=== PATIENT | female | born 1935 | race Caucasian/White ===

== ENCOUNTER → 2016-06-27 | Outpatient (CLI) | payer OTHER ==
[~2016-06-27] MED LIST: ACET-1047 PO; ALL300 PO; ALLO300T2 PO; AMLO-110 PO; AMLO2.5T PO; AMX500 PO; APR10 PO; ASPCH81 PO; ASPI1TAB48 PO; ATEN50TA8 PO; BUME1TAB PO; CALC-585 PO; CALCTAB7 PO; CARV12.5 PO; CARV25TA PO; CHOL1000 PO; CLON0.1D5 TD; CLON0.2D4 TOP; CLOP1TAB15 PO; ENOX30IN SQ; FERR324T PO; FERR325T18 PO; HPRIS5M SQ; HYDR-5688 PO; INSDGI SC; INSDGIPEN SC; LDDP5 TD; LEVO50TA PO; LEVO50TA6 PO; LOSA1TAB38 PO; LPT/40 PO; LPT10 PO; LSX/40 PO; LSX20 PO; LVQ500 PO; MCRK20 PO; MULT-506 PO; NVLGI SC; NVLGI/PEN SQ; PRLSR20 PO; SACC250C3 PO; VNCS125 PO
[2016-06-27 18:12] LABS: BASO % 0.6 %; BASO ABS # 0.06 K/uL (0-0.2); COMPLETE YES; EOS % 3.9 %; HEMATOCRIT 32.5 % (37-47); IG% 0.4 %; LYMPH ABS # 2.44 K/uL (1.2-3.4); MEAN CELL VOLUME 93.4 fL (80-100); MEAN CORPUSCULAR HEMOGLOBIN 30.2 pg (25-34); MEAN CORPUSCULAR HGB CONC 32.3 g/dl (32-36); MEAN PLATELET VOLUME 9.3 fL (7.4-10.4); MONO % 6.6 %; NEUT % 64.5 %; PLATELET COUNT 328 K/uL (130-400); RED BLOOD COUNT 3.48 M/uL (4.2-5.4); WHITE BLOOD COUNT 10.18 K/uL (4.8-10.8)
[2016-06-27 18:23] LABS: THYROID STIMULATING HORMONE 0.251 uIu/ml (0.300-4.500)
== END | disposition home or self-care (01) ==
LOC: C.LABMFLN 11:37
PROVIDERS: ATTEND Family Medicine
DX: D64.9 Anemia, unspecified (principal); E03.9 Hypothyroidism, unspecified; R53.83 Other fatigue

== ENCOUNTER → 2016-10-20 | Outpatient (CLI) | payer OTHER ==
[2016-10-20 18:30] LABS: BASO % 0.5 %; BASO ABS # 0.04 K/uL (0-0.2); COMPLETE YES; EOS % 6.9 %; IG% 0.3 %; LYMPH % 22.5 %; LYMPH ABS # 1.96 K/uL (1.2-3.4); MEAN CELL VOLUME 94.4 fL (80-100); MEAN CORPUSCULAR HEMOGLOBIN 30.1 pg (25-34); MEAN CORPUSCULAR HGB CONC 31.9 g/dl (32-36); MEAN PLATELET VOLUME 9.3 fL (7.4-10.4); MONO % 4.8 %; PLATELET COUNT 340 K/uL (130-400); RED BLOOD COUNT 3.39 M/uL (4.2-5.4)
[2016-10-20 18:46] LABS: BLOOD UREA NITROGEN 64 mg/dl (7-18); BUN/CREATININE RATIO 24.6 (10-20); CALCIUM 8.8 mg/dl (8.5-10.1); CARBON DIOXIDE 24 mmol/L (21-32); CHLORIDE 108 mmol/L (98-107); CHOLESTEROL 179 mg/dl (0-200); GLUCOSE 165 mg/dl (70-99); POTASSIUM 4.2 mmol/L (3.5-5.1); SODIUM 141 mmol/L (136-145); TRIGLYCERIDES 316 mg/dl (0-150); VERY LOW DENSITY LIPOPROT CALC 63 mg/dl
[2016-10-20 18:49] LABS: ALB/GLOB RATIO 0.7 (0.9-2); ALKALINE PHOSPHATASE 143 U/L (45-117); ALT/SGPT 19 U/L (12-78); AST/SGOT 16 U/L (15-37); CHOLESTEROL/HDL RATIO 4.1; HDL CHOLESTEROL 44 mg/dl; LDL CHOLESTEROL CALCULATED 72 mg/dl
[2016-10-21 06:19] LABS: ESTIMATED AVERAGE GLUCOSE 183 mg/dl; HA1C FLAG Normal (Normal)
== END | disposition home or self-care (01) ==
LOC: C.LABMFLN 09:20
PROVIDERS: ATTEND Family Medicine
DX: E11.22 Type 2 diabetes mellitus with diabetic chronic kidney disease (principal); I12.9 Hypertensive chronic kidney disease with stage 1 through stage 4 chronic kidney disease, or unspecified chronic kidney disease; D64.9 Anemia, unspecified; E55.9 Vitamin D deficiency, unspecified; E11.621 Type 2 diabetes mellitus with foot ulcer; E53.8 Deficiency of other specified B group vitamins; N18.9 Chronic kidney disease, unspecified

== ENCOUNTER 2016-11-27 02:12 | Inpatient (IN) | payer OTHER ==
[2016-11-27] VITALS (7 sets, daily range): BP systolic 148–171; BP diastolic 57–90; PULSE 57–64; TEMP 36.6–37.1; O2SAT 90–95; BMI 31.6
[~2016-11-27] VITALS: Ht 152.4 cm; Wt 76.9 kg
[~2016-11-27 02:12] MED LIST changes: -ACET-1047 PO; -ALLO300T2 PO; -AMLO-110 PO; -AMX500 PO; -APR10 PO; -ASPI1TAB48 PO; -BUME1TAB PO; -CALC-585 PO; -CARV12.5 PO; -CARV25TA PO; -CHOL1000 PO; -CLON0.1D5 TD; -CLON0.2D4 TOP; -CLOP1TAB15 PO; -FERR325T18 PO; -HPRIS5M SQ; -HYDR-5688 PO; -INSDGIPEN SC; -LDDP5 TD; -LEVO50TA6 PO; -LPT10 PO; -LSX/40 PO; -LVQ500 PO; -NVLGI/PEN SQ; -SACC250C3 PO; -VNCS125 PO
[2016-11-27] MEDS ORDERED: MoRPHine SULFATE 4 MG/ML 1 ML CARP\\VIAL IV STA (02:51)
[2016-11-27] MEDS ORDERED: ONDANSETRON INJ 2 MG/ML 2 ML VIAL IV STA (02:51)
[2016-11-27 03:20] LABS: BASO % 0.1 %; BASO ABS # 0.02 K/uL (0-0.2); COMPLETE YES; EOS % 0.3 %; HEMATOCRIT 33.4 % (37-47); IG% 0.5 %; LYMPH % 6.4 %; LYMPH ABS # 1.17 K/uL (1.2-3.4); MEAN CELL VOLUME 95.4 fL (80-100); MEAN CORPUSCULAR HEMOGLOBIN 30.6 pg (25-34); MEAN PLATELET VOLUME 9.2 fL (7.4-10.4); MONO % 3.3 %; NEUT % 89.4 %; PLATELET COUNT 256 K/uL (130-400); WHITE BLOOD COUNT 18.26 K/uL (4.8-10.8)
[2016-11-27 03:45] LABS: ALB/GLOB RATIO 0.8 (0.9-2); ALKALINE PHOSPHATASE 150 U/L (45-117); ALT/SGPT 18 U/L (12-78); AST/SGOT 13 U/L (15-37); BLOOD UREA NITROGEN 60 mg/dl (7-18); BUN/CREATININE RATIO 19.4 (10-20); CALCIUM 9.2 mg/dl (8.5-10.1); CARBON DIOXIDE 31 mmol/L (21-32); CHLORIDE 96 mmol/L (98-107); CKMB/CK RATIO 1.4 (0-3.0); GLUCOSE 376 mg/dl (70-99); POTASSIUM 4.1 mmol/L (3.5-5.1); SODIUM 137 mmol/L (136-145)
[2016-11-27 04:06] LABS: BETA-HYDROXYBUTYRATE 1.15 mg/dL (0.2-2.81)
--- NOTE | 2016-11-27 04:12 | EMERGENCY ROOM VISIT NOTE ---
History Report prepared by Clara: Gillian Sullivan Under the Supervision of: Dr. Samanta Alarcon D.O. First contact with patient: 02:39 Chief Complaint: FALL Stated Complaint: FALL History of Present Illness The patient is a 81 year old female who presents to the Emergency Room with complaints of left knee pain secondary to fall occurring about 4 hours ago. While walking to answer the door, she tripped over an object and landed on her left side. Her family assisted her to the couch. She was unable to ambulate as normal after the fall due to the severity of her pain. The patient denies hitting her head or loss of consciousness. The patient also complains of some left shoulder pain and left hip pain. She has worsening pain with movement. She had a vomiting episode 4 days ago. The patient denies abdominal pain, or any other complaints. She has chronic neck pain and denies any changes. She has a history of left shoulder reconstruction surgery after a fall, and left knee replacement. Source of History: patient Onset: about 4 hours ago Position: knee (left) Timing: other (persistent) Modifying Factors (Worsening): movement Associated Symptoms: No LOC, No abdominal pain Review of Systems See HPI for pertinent positives & negatives. A total of 10 systems reviewed and were otherwise negative. Past Medical & Surgical Medical Problems: (1) Anxiety (2) Diabetes (3) High cholesterol (4) Hypertension (5) Kidney stones (6) Left Femur fracture (7) Left Femur Fracture (8) Osteopenia (9) Renal insufficiency Surgical Problems: (1) History of cholecystectomy (2) History of lobectomy of lung (3) History of total left knee replacement (4) History of total right knee replacement (5) Hx of appendectomy Family History Patient reports no known family medical history. Social History Smoking Status: Never Smoker Marital Status: Housing Status: lives with family Occupation Status: retired Current/Historical Medications Scheduled Allopurinol (Zyloprim), 300 MG PO DAILY Amlodipine (Norvasc), 5 MG PO DAILY Aspirin (Aspirin Low Dose), 1 TAB PO DAILY Atorvastatin (Atorvastatin Calcium), 10 MG PO QPM Calcium Carbonate-Cholecalcife (Calcium 600 with Vitamin 600-400 mg-Unit), 1 TAB PO DAILY Carvedilol (Coreg), 12.5 MG PO BIDM Carvedilol (Coreg), 25 MG PO BID Cholecalciferol (Vitamin D3), 2,000 UNIT PO BID Clonidine Hcl (Catapres-Tts), 1 PATCH TD WK Clopidogrel (Plavix), 75 MG PO DAILY Ferrous Gluconate (Ferrous Gluconate), 324 MG PO BID Furosemide (Lasix), 40 MG PO DAILY Insulin Aspart (Novolog Flexpen), 6 UNITS SQ WM Insulin Glargine (Lantus Solostar), 16 UNITS SC QPM Levothyroxine Sodium (Levothyroxine Sodium), 1 TAB PO DAILY Multivitamin (Multivitamin), 1 TAB PO DAILY Allergies Coded Allergies: Quinolones (Verified Allergy, Unknown, CIPRO=RASH, 07/31/09) Atorvastatin (Verified Adverse Reaction, Intermediate, MUSCLE ACHES, ) MUSCLE ACHES Ezetimibe (Verified Adverse Reaction, Intermediate, MUSCLE ACHES, 07/31/09) MUSCLE ACHES Simvastatin (Verified Adverse Reaction, Intermediate, MUSCLES ACHES, ) MUSCLE ACHES Physical Exam Vital Signs Date Time Temp Pulse Resp B/P (MAP) Pulse Ox O2 Delivery O2 Flow Rate FiO2 11/27/16 05:06 63 11/27/16 04:23 72 16 143/79 98 Room Air 11/27/16 02:22 36.6 58 18 163/61 96 Room Air Physical Exam HEENT: Head - normocephalic and atraumatic. Pupils are equal, round, and reactive to light. Extraocular eye muscles are intact and sclera are anicteric. Nose - moist nasal mucosa without evidence of trauma or discharge. Mouth - moist buccal mucosa with no trauma to the teeth or signs of malocclusion. Neck: The neck is supple and there is no pain to palpation over the posterior cervical spine and no obvious step-offs or deformities. There is no JVD or tracheal deviation. Chest: There are no signs of deformities, contusions or abrasions to the chest wall. There is no obvious crepitus or paradoxical chest rise. Heart: Regular, rate, and rhythm. There is a normal S1 and S2 with no murmurs, clicks, or gallops appreciated. Lungs: Clear to auscultation bilaterally with no wheezes, rales, or rhonchi. Abdomen: Soft, completely nontender, nondistended, with good bowel sounds. There is no sign of trauma such as contusions, abrasions or penetrations. There are no palpable pulsatile masses or hepatosplenomegaly. There is no guarding, rigidity, or rebound noted. Pelvis: Stable to rock and compression. Extremities: No obvious trauma, contusions, or edema. There are easily palpable peripheral pulses. Minimal pain to palpation over the left lateral hip , moderate pain over the left lateral knee at the proximal left fibula. The patient has a history of previously indicated toes on this foot. She has a deep wound over the base of the first metatarsal on the plantar surface. There is no surrounding erythema or edema. Neuro: The patient is awake and alert and easily able to follow commands. Muscle strength is 5 out of 5 in all 4 extremities. Otherwise, neuro exam is unremarkable. Back: The entire thoracic, lumbar, and sacral spine were palpated. There are no obvious step-offs or deformities noted. There are no obvious signs of trauma such as contusions abrasions penetrations noted to the back. Medical Decision & Procedures ER Provider Diagnostic Interpretation: X-ray results as stated below per interpretation by me: HIP X-RAY No obvious fracture, hardware in place. KNEE X-RAY No obvious fracture, hardware in place. PORTABLE CHEST X-RAY No obvious pulmonary consolidation, no infiltrates, hardware in the left humerus appears intact. Laboratory Results 11/27/16 03:10 Red Blood Count 3.50, Mean Corpuscular Volume 95.4, Mean Corpuscular Hemoglobin 30.6, Mean Corpuscular Hemoglobin Concent 32.0, Mean Platelet Volume 9.2, Neutrophils (%) (Auto) 89.4, Lymphocytes (%) (Auto) 6.4, Monocytes (%) (Auto) 3.3, Eosinophils (%) (Auto) 0.3, Basophils (%) (Auto) 0.1, Neutrophils # (Auto) 16.31, Lymphocytes # (Auto) 1.17, Monocytes # (Auto) 0.61, Eosinophils # (Auto) 0.06, Basophils # (Auto) 0.02 11/27/16 03:10 Test 11/27/16 03:10 11/27/16 05:20 White Blood Count 18.26 K/uL (4.8-10.8) Red Blood Count 3.50 M/uL (4.2-5.4) Hemoglobin 10.7 g/dL (12.0-16.0) Hematocrit 33.4 % (37-47) Mean Corpuscular Volume 95.4 fL (80-100) Mean Corpuscular Hemoglobin 30.6 pg (25-34) Mean Corpuscular Hemoglobin Concent 32.0 g/dl (32-36) Platelet Count 256 K/uL (130-400) Mean Platelet Volume 9.2 fL (7.4-10.4) Neutrophils (%) (Auto) 89.4 % Lymphocytes (%) (Auto) 6.4 % Monocytes (%) (Auto) 3.3 % Eosinophils (%) (Auto) 0.3 % Basophils (%) (Auto) 0.1 % Neutrophils # (Auto) 16.31 K/uL (1.4-6.5) Lymphocytes # (Auto) 1.17 K/uL (1.2-3.4) Monocytes # (Auto) 0.61 K/uL (0.11-0.59) Eosinophils # (Auto) 0.06 K/uL (0-0.5) Basophils # (Auto) 0.02 K/uL (0-0.2) RDW Standard Deviation 48.9 fL (36.4-46.3) RDW Coefficient of Variation 14.2 % (11.5-14.5) Immature Granulocyte % (Auto) 0.5 % Immature Granulocyte # (Auto) 0.09 K/uL (0.00-0.02) Anion Gap 10.0 mmol/L (3-11) Est Creatinine Clear Calc Drug Dose 12.9 ml/min Estimated GFR () 15.7 Estimated GFR (Non- 13.5 BUN/Creatinine Ratio 19.4 (10-20) Calcium Level 9.2 mg/dl (8.5-10.1) Total Bilirubin 0.4 mg/dl (0.2-1) Aspartate Amino Transf (AST/SGOT) 13 U/L (15-37) Alanine Aminotransferase (ALT/SGPT) 18 U/L (12-78) Alkaline Phosphatase 150 U/L (45-117) Total Creatine Kinase 72 U/L (26-192) Creatine Kinase MB 1.0 ng/ml (0.5-3.6) Creatine Kinase MB Ratio 1.4 (0-3.0) Troponin I < 0.015 ng/ml (0-0.045) Total Protein 8.1 gm/dl (6.4-8.2) Albumin 3.6 gm/dl (3.4-5.0) Globulin 4.5 gm/dl (2.5-4.0) Albumin/Globulin Ratio 0.8 (0.9-2) Beta-Hydroxybutyric Acid 1.15 mg/dL (0.2-2.81) Urine Color YELLOW Urine Appearance CLEAR (CLEAR) Urine pH 5.0 (4.5-7.5) Urine Specific [place] 1.017 (1.000-1.030) Urine Protein 2+ (NEG) Urine Glucose (UA) 3+ (NEG) Urine Ketones NEG (NEG) Urine Occult Blood TRACE (NEG) Urine Nitrite NEG (NEG) Urine Bilirubin NEG (NEG) Urine Urobilinogen NEG (NEG) Urine Leukocyte Esterase NEG (NEG) Urine WBC (Auto) 1-5 /hpf (0-5) Urine RBC (Auto) 0-4 /hpf (0-4) Urine Hyaline Casts (Auto) 1-5 /lpf (0-5) Urine Epithelial Cells (Auto) >30 /lpf (0-5) Urine Bacteria (Auto) NEG (NEG) Laboratory results per my review. Medications Administered Medications (Trade) Dose Ordered Sig/Sandra Route Start Time Stop Time Status Last Admin Dose Admin Morphine Sulfate (MoRPHine SULFATE INJ) 4 mg NOW STAT IV 11/27/16 02:51 11/27/16 02:53 DC 11/27/16 03:17 4 MG Ondansetron HCl (Zofran Inj) 4 mg NOW STAT IV 11/27/16 02:51 11/27/16 02:53 DC 11/27/16 03:17 4 MG Procedure Zofran Inj 4 mg IV, Morphine Sulfate 4 mg IV ED Course 0239: Past medical records reviewed. The patient was evaluated in room B04B. A complete history and physical exam was performed. An IV lock was initiated and labs are drawn as above. I attest that I have personally reviewed the patient's current medication list. Patient was found to have an elevated blood pressure and was referred to their primary doctor for recheck and further treatment once she is discharged. 0251: Zofran Inj 4 mg IV, Morphine Sulfate 4 mg IV was given for the pain in the left knee. 0445: Upon reevaluation, I discussed findings and results with the patient and her family. They verbalized agreement of the treatment plan. The patient will be evaluated for further management and care. The patient was noted to have significant leukocytosis and additional laboratory tests were ordered-blood cultures. Also ordered a catheterized urine specimen and a chest x-ray to rule out sources of infection. 0455: I discussed the patient's case with Dr. Wallace, from [facility] Service. Medical Decision The patient presents to the Emergency Room with complaints of left knee pain secondary to fall. Differential diagnosis includes but is not limited to hip fracture, knee fracture, displaced hardware, sepsis, osteomyelitis, UTI, hypoglycemia, or hyperglycemia. Her labs showed white count of 18.2 with 89% neutrophils, anemic with hemoglobin of 10.7 which is baseline for her, creatinine of 3.1 which is elevated from her baseline of 2.6, BUN of 60, glucose 376, LFTs are normal, cardiac enzymes are negative. Urinalysis showed trace blood and greater than 30 epithelial cells. Patient presents with a mechanical fall and complains of left hip pain and left knee pain. No obvious fracture was identified. The patient's pain was well controlled with the IV pain medications that she received. The patient was noted to have a significant leukocytosis and hyperglycemia. The patient had not taken her insulin tonight's because of the fall. The source of infection was not yet known. Her vital signs are stable. There is no obvious finding on chest x-ray. Urinalysis was contaminated and sent for culture. The wound on the left foot could certainly be a source but did not appear to be acutely infected. The patient has chronic renal insufficiency with a creatinine at the level of 2.6. Tonight, the creatinine was greater than 3. I discussed the case with the [facility] and they will evaluate for further management. Consults Time Called: 045 Consulting Physician: Dr. Wallace, from [facility] Service Returned Call: [phone] I discussed the patient's case with Dr. Wallace, from [facility] Service. Impression Primary Impression: Renal failure Additional Impressions: Fall Hyperglycemia Scribe Attestation The scribe's documentation has been prepared under my direction and personally reviewed by me in its entirety. I confirm that the note above accurately reflects all work, treatment, procedures, and medical decision making performed by me. Departure Information Dispostion Being Evaluated By Hospitalist Referrals Doe Mercedes M.D. (PCP) Patient Instructions [facility] Problem Qualifiers
[2016-11-27 05:33] LABS: MANUAL MICROSCOPIC REQUIRED? NO; REVIEW REQ? NO; URINE APPEARANCE CLEAR (CLEAR); URINE BILIRUBIN NEG (NEG); URINE COLOR YELLOW; URINE EPITHELIAL CELL AUTO >30 /lpf (0-5); URINE NITRITE NEG (NEG); URINE SPECIFIC GRAVITY 1.017 (1.000-1.030); UROBILINOGEN NEG (NEG)
[2016-11-27] MEDS ORDERED: CLOP1TAB15 PO (05:44)
[2016-11-27] MEDS ORDERED: AMLO-110 PO (05:45)
[2016-11-27] MEDS ORDERED: ALLO300T2 PO (05:45)
[2016-11-27] MEDS ORDERED: ASPI1TAB48 PO (05:46)
[2016-11-27] MEDS ORDERED: LPT10 PO (05:46)
[2016-11-27] MEDS ORDERED: CALC-585 PO (05:47)
[2016-11-27] MEDS ORDERED: CARV25TA PO (05:48)
[2016-11-27] MEDS ORDERED: CARV12.5 PO (05:48)
[2016-11-27] MEDS ORDERED: CLON0.1D5 TD (05:49)
[2016-11-27] MEDS ORDERED: FERR325T18 PO (05:50)
[2016-11-27] MEDS ORDERED: LSX/40 PO (05:50)
[2016-11-27] MEDS ORDERED: LEVO50TA6 PO (05:51)
[2016-11-27] MEDS ORDERED: INSDGIPEN SC (05:51)
[2016-11-27] MEDS ORDERED: MULT-506 PO (05:51)
[2016-11-27] MEDS ORDERED: CHOL1000 PO (05:52)
[2016-11-27] MEDS ORDERED: NVLGI/PEN SQ (05:52)
--- NOTE | 2016-11-27 06:20 | History and Physical ---
History & Physical Date & Time of Service: Nov 27, 2016 at 06:19 Chief Complaint: FALL Primary Care Physician: Doe Mercedes M.D. History of Present Illness Source: patient, family The patient is an 81-year-old female who presents to the emergency department with left knee pain after a fall that occurred about 4 hours prior to arrival. Her daughter is present and helps to complete the history of present illness and ROS. The patient reportedly became startled when she was walking toward the door as her son is coming to visit, she tripped over an object on the floor and landed on her left side. Her daughter reports that both for them to lift her up and move her to the couch. It is unclear whether this was because of severe pain or because the patient was afraid she had broken her leg. The patient did not have any predisposing issues as far as lightheadedness palpitations. She denies any loss of consciousness and she does not have any head trauma. She does also reports some left shoulder and left hip pain that is worse with movement. Past Medical/Surgical History Medical Problems: (1) Anxiety Status: Resolved (2) Diabetes Status: Chronic (3) High cholesterol Status: Chronic (4) Hypertension Status: Chronic (5) Kidney stones Status: Resolved (6) Left Femur fracture Status: Resolved (7) Left Femur Fracture Status: Resolved (8) Osteopenia Status: Chronic (9) Renal insufficiency Status: Chronic Surgical Problems: (1) History of cholecystectomy Status: Resolved (2) History of lobectomy of lung Status: Resolved (3) History of total left knee replacement Status: Resolved (4) History of total right knee replacement Status: Resolved (5) Hx of appendectomy Status: Resolved Family History Patient reports no known family medical history. Social History Smoking Status: Never Smoker Smokeless Tobacco Use: No Alcohol Use: none Drug Use: none Marital Status: Housing status: lives alone Occupational Status: retired Immunizations History of Influenza Vaccine: Yes Influenza Vaccine Date: Mar 26, 2013 History of Tetanus Vaccine?: Unknown History of Pneumococcal: Yes Pneumococcal Date: Apr 15, 2012 History of Hepatitis B Vaccine: Unknown Multi-Drug Resistant Organisms History of MDRO: No Allergies Coded Allergies: Quinolones (Verified Allergy, Unknown, CIPRO=RASH, 07/31/09) Atorvastatin (Verified Adverse Reaction, Intermediate, MUSCLE ACHES, ) MUSCLE ACHES Ezetimibe (Verified Adverse Reaction, Intermediate, MUSCLE ACHES, 07/31/09) MUSCLE ACHES Simvastatin (Verified Adverse Reaction, Intermediate, MUSCLES ACHES, ) MUSCLE ACHES Home Medications Scheduled Allopurinol (Zyloprim), 300 MG PO DAILY Amlodipine (Norvasc), 5 MG PO DAILY Aspirin (Aspirin Low Dose), 1 TAB PO DAILY Atorvastatin (Atorvastatin Calcium), 10 MG PO QPM Calcium Carbonate-Cholecalcife (Calcium 600 with Vitamin 600-400 mg-Unit), 1 TAB PO DAILY Carvedilol (Coreg), 12.5 MG PO BIDM Carvedilol (Coreg), 25 MG PO BID Cholecalciferol (Vitamin D3), 2,000 UNIT PO BID Clonidine Hcl (Catapres-Tts), 1 PATCH TD WK Clopidogrel (Plavix), 75 MG PO DAILY Ferrous Gluconate (Ferrous Gluconate), 324 MG PO BID Furosemide (Lasix), 40 MG PO DAILY Insulin Aspart (Novolog Flexpen), 6 UNITS SQ WM Insulin Glargine (Lantus Solostar), 16 UNITS SC QPM Levothyroxine Sodium (Levothyroxine Sodium), 1 TAB PO DAILY Multivitamin (Multivitamin), 1 TAB PO DAILY Review of Systems The patient denies chest pain, palpitations, shortness of breath, cough, vision change, hearing change, sore throat, fevers, chills, sweats, weight change, fatigue, nausea, vomiting, abdominal pain, pelvic pain, blood in urine or stool , dysuria, urinary frequency or urgency, lightheadedness, dizziness, headache, memory loss, rash, abnormal bruising or bleeding, back or neck pain, night sweats, or allergy symptoms. The review of systems is otherwise negative other than for that already noted above, and at least 10 systems have been reviewed. Physical Exam Vital Signs Date Time Temp Pulse Resp B/P (MAP) Pulse Ox O2 Delivery O2 Flow Rate FiO2 11/27/16 05:06 63 11/27/16 04:23 72 16 143/79 98 Room Air 11/27/16 02:22 36.6 58 18 163/61 96 Room Air The patient is awake, well-developed and adequately nourished, alert and oriented 3, normocephalic and atraumatic, lying in bed and in no acute distress. She is hard of hearing. HEENT--PERRL, EOMI, mucous membranes and oropharynx dry. Neck--supple, no JVD or bruits, thyroid normal, trachea midline, no adenopathy. Heart--normal S1 and S2, no extra beats, no murmurs, rubs or gallops. Lungs--clear bilaterally but diminished throughout, no respiratory distress, no accessory muscle use. Abdomen--normal bowel sounds and soft, nontender and nondistended, no hernias or masses, no organomegaly. Extremities--no cyanosis, clubbing or edema. There are good distal pulses b/l. Dermatologic--normal skin turgor, normal color, warm and dry, no abnormal lymph nodes, no rash. Neurologic--cranial nerves II through XII grossly intact. Rheumatologic--reducible pain over left knee with light touch. Psychiatric--normal affect. Diagnostics Laboratory Results Results Past 24 Hours Test 11/27/16 03:10 11/27/16 05:20 Range/Units White Blood Count 18.26 4.8-10.8 K/uL Red Blood Count 3.50 4.2-5.4 M/uL Hemoglobin 10.7 12.0-16.0 g/dL Hematocrit 33.4 37-47 % Mean Corpuscular Volume 95.4 80-100 fL Mean Corpuscular Hemoglobin 30.6 25-34 pg Mean Corpuscular Hemoglobin Concent 32.0 32-36 g/dl Platelet Count 256 130-400 K/uL Mean Platelet Volume 9.2 7.4-10.4 fL Neutrophils (%) (Auto) 89.4 % Lymphocytes (%) (Auto) 6.4 % Monocytes (%) (Auto) 3.3 % Eosinophils (%) (Auto) 0.3 % Basophils (%) (Auto) 0.1 % Neutrophils # (Auto) 16.31 1.4-6.5 K/uL Lymphocytes # (Auto) 1.17 1.2-3.4 K/uL Monocytes # (Auto) 0.61 0.11-0.59 K/uL Eosinophils # (Auto) 0.06 0-0.5 K/uL Basophils # (Auto) 0.02 0-0.2 K/uL RDW Standard Deviation 48.9 36.4-46.3 fL RDW Coefficient of Variation 14.2 11.5-14.5 % Immature Granulocyte % (Auto) 0.5 % Immature Granulocyte # (Auto) 0.09 0.00-0.02 K/uL Sodium Level 137 136-145 mmol/L Potassium Level 4.1 3.5-5.1 mmol/L Chloride Level 96 98-107 mmol/L Carbon Dioxide Level 31 21-32 mmol/L Anion Gap 10.0 3-11 mmol/L Blood Urea Nitrogen 60 7-18 mg/dl Creatinine 3.10 0.60-1.20 mg/dl Est Creatinine Clear Calc Drug Dose 12.9 ml/min Estimated GFR () 15.7 Estimated GFR (Non- 13.5 BUN/Creatinine Ratio 19.4 10-20 Random Glucose 376 70-99 mg/dl Calcium Level 9.2 8.5-10.1 mg/dl Total Bilirubin 0.4 0.2-1 mg/dl Aspartate Amino Transf (AST/SGOT) 13 15-37 U/L Alanine Aminotransferase (ALT/SGPT) 18 12-78 U/L Alkaline Phosphatase 150 45-117 U/L Total Creatine Kinase 72 26-192 U/L Creatine Kinase MB 1.0 0.5-3.6 ng/ml Creatine Kinase MB Ratio 1.4 0-3.0 Troponin I < 0.015 0-0.045 ng/ml Total Protein 8.1 6.4-8.2 gm/dl Albumin 3.6 3.4-5.0 gm/dl Globulin 4.5 2.5-4.0 gm/dl Albumin/Globulin Ratio 0.8 0.9-2 Beta-Hydroxybutyric Acid 1.15 0.2-2.81 mg/dL Urine Color YELLOW Urine Appearance CLEAR CLEAR Urine pH 5.0 4.5-7.5 Urine Specific [place] 1.017 1.000-1.030 Urine Protein 2+ NEG Urine Glucose (UA) 3+ NEG Urine Ketones NEG NEG Urine Occult Blood TRACE NEG Urine Nitrite NEG NEG Urine Bilirubin NEG NEG Urine Urobilinogen NEG NEG Urine Leukocyte Esterase NEG NEG Urine WBC (Auto) 1-5 0-5 /hpf Urine RBC (Auto) 0-4 0-4 /hpf Urine Hyaline Casts (Auto) 1-5 0-5 /lpf Urine Epithelial Cells (Auto) >30 0-5 /lpf Urine Bacteria (Auto) NEG NEG Microbiology Results 6/4/17 Blood Culture, Received Pending 11/27/16 Blood Culture, Received Pending Impression Assessment and Plan Left knee pain, with normal x-ray, status post mechanical fall--patient has also had significant general debilitation. We'll consult PT/OT/social group worker. Patient would likely benefit from inpatient rehabilitation stay. Diabetes mellitus/hyperglycemia--blood sugar is elevated at 376 due to not having taken her Lantus 16 units at bedtime last evening. She'll be given that dose this morning at 6:30, and should be able to resume her usual dose scheduled this evening. She will be placed on Accu-Cheks before meals and at bedtime with NovoLog coverage per scale. Hypertension/renal insufficiency--continue amlodipine 2.5 mg by mouth daily, atenolol 12.5 mg by mouth daily, losartan 100 mg by mouth daily and aspirin 81 mg by mouth daily. Hold furosemide 40 mg by mouth daily due to relative dehydration. Place on normal saline at 100 mils per hour. Follow serial BMP and magnesium levels. Her daughter reports that her kidney function has been not optimal for a while, and has been told that she is close to needing dialysis. Hypercholesterolemia--continue atorvastatin 80 mg by mouth daily. Hypothyroidism--continue levothyroxine sodium 50 g by mouth daily. GERD--change omeprazole 20 mg by mouth daily to pantoprazole 40 mg by mouth daily. Gout--continue allopurinol 300 mg by mouth daily. Level of Care Med/Surg Advanced Directives Existing Advance Directive: No Existing Living Will: No Existing Power of Extractor Plant Operator: No Resuscitation Status FULL RESUSCITATION VTE Prophylaxis VTE Risk Assessment Done? Y/N: Yes Risk Level: Moderate Given or contraindicated: SCD's Social Service Consult >80 yr.& Lives Alone
[2016-11-27] MEDS ORDERED: GLUCAGON FOR INJ 1 MG VIAL SQ PRN (06:30)
[2016-11-27] MEDS ORDERED: GLUCOSE 40% GEL 15 GM TUBE PO PRN (06:30)
[2016-11-27] MEDS ORDERED: DEXTROSE 50% 50 ML SYR IV PRN (06:30)
[2016-11-27] MEDS ORDERED: ONDANSETRON INJ 2 MG/ML 2 ML VIAL IV PRN (06:30)
[2016-11-27] MEDS ORDERED: GLUCOSE 10 TABS/TUBE PO PRN (06:30)
[2016-11-27] MEDS ORDERED: INSULIN GLARGINE SOLOSTAR 100 UNITS/ML 3 ML PEN SC ONE (07:30)
--- NOTE | 2016-11-27 07:42 | DIAGNOSTIC IMAGING REPORT ---
LEFT KNEE 2 VIEWS CLINICAL HISTORY: Fall with left knee pain. FINDINGS: AP and crosstable lateral views of left knee are compared to study dated 07/13/2007. The skeletal structures are osteopenic. A left knee arthroplasty is in near-anatomic alignment. No periprosthetic lucency is identified. There is an oblique lucency seen in the distal femoral metaphysis on the oblique view. There is no clear cortical disruption. A nondistracted fracture is not excluded. An intramedullary nail is partially visualized in the distal femur. The proximal tibia and fibula appear maintained. There is been undersurface remodeling of the patella with chronic appearing posttraumatic deformity. A joint effusion is identified. Mild soft tissue swelling is present in the distal thigh and there is advanced atherosclerotic calcification of the popliteal artery. IMPRESSION: 1. There is an oblique lucency seen in the distal femoral metaphysis only on the oblique view. There is no clear cortical disruption, and a nondistracted oblique fracture is not excluded. Correlate for point tenderness at this site. Oblique views may be useful for further interrogation. 2. There is chronic appearing posttraumatic deformity of the patella. 3. Joint effusion and soft tissue swelling the distal thigh. 4. A left knee arthroplasty is in near-anatomic alignment. Electronically signed by: Doe Caceres M.D. 11/27/2016 7:41 AM Dictated Date/Time: 11/27/2016 7:37 AM
--- NOTE | 2016-11-27 07:45 | DIAGNOSTIC IMAGING REPORT ---
LEFT HIP 2 VIEWS CLINICAL HISTORY: Fall with left hip pain. FINDINGS: AP and frog-leg views of the left hip are correlated with pelvic radiograph dated 07/23/2013. The skeletal structures are osteopenic. There is no radiographic evidence of acute left hip fracture. There is chronic posttraumatic deformity in the left proximal femur with intertrochanteric and intramedullary nails in place. There are chronic appearing right pubic ring fractures which are new from the 2013 examination. 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 There is advanced atherosclerotic calcification of the femoral arteries. The overlying soft tissues are otherwise within normal limits. IMPRESSION: 1. No acute fracture is clearly identified in the left hip. 2. There is chronic posttraumatic deformity and postoperative change in the left proximal femur. 3. There are chronic appearing right pubic ring fractures which are new from the 07/23/2013 examination. Correlation the patient's medical history will be required. Electronically signed by: Doe Caceres M.D. 11/27/2016 7:44 AM Dictated Date/Time: 11/27/2016 7:41 AM
--- NOTE | 2016-11-27 07:49 | DIAGNOSTIC IMAGING REPORT ---
SINGLE VIEW CHEST CLINICAL HISTORY: Leukocytosis. FINDINGS: An AP, portable, upright chest radiograph is compared to study dated 01/15/2007. The examination is degraded by portable technique and patient rotation. The heart is mildly enlarged and there is atherosclerotic calcification of the thoracic aorta. The pulmonary vasculature is noncongested. Chronic interstitial thickening is similar to previous. No airspace consolidation, pleural effusion, or pneumothorax is seen. The skeletal structures are osteopenic. There are healed left-sided rib fractures. A left shoulder arthroplasty is in place. Advanced arthritic changes present in the right shoulder. Atherosclerotic calcification is noted in the carotid bulbs. A surgical clip is noted in the left lower neck. IMPRESSION: Mild cardiomegaly with no acute cardiopulmonary abnormality. Electronically signed by: Doe Caceres M.D. 11/27/2016 7:48 AM Dictated Date/Time: 11/27/2016 7:47 AM
[2016-11-27] MEDS: CHECK CLONIDINE PATCH PLACEMENT SCH ×2 (08:00→16:33)
[2016-11-27] MEDS: SODIUM CHLORIDE 0.9% 1000ML 1,000 ML IV SCH ×2 (09:08→17:35)
[2016-11-27] MEDS: FUROSEMIDE 40 MG TAB PO SCH (09:11)
[2016-11-27] MEDS: CLOPIDOGREL BISULFATE 75 MG TAB PO SCH (09:12)
[2016-11-27] MEDS: CARVEDILOL 12.5 MG TAB PO SCH ×2 (09:12→21:31)
[2016-11-27] MEDS: ALLOPURINOL 300 MG TAB PO SCH (09:13)
[2016-11-27] MEDS: FERROUS GLUCONATE 324 MG TAB PO SCH ×2 (09:13→21:33)
[2016-11-27] MEDS: ASPIRIN 81 MG ECTAB PO SCH (09:13)
[2016-11-27] MEDS: CALCIUM 600MG + VIT D 400 IU TAB PO SCH (09:13)
[2016-11-27] MEDS: AMLODIPINE BESYLATE 5 MG TAB PO SCH (09:14)
[2016-11-27] MEDS: CHOLECALCIFEROL 1000 INTER.UNIT TAB PO SCH ×2 (09:14→21:32)
[2016-11-27] MEDS: MULTIVITAMIN TAB PO SCH (09:14)
[2016-11-27] MEDS: LEVOTHYROXINE 50 MCG TAB PO SCH (09:15)
[2016-11-27] MEDS: INSULIN ASPART 100 UNITS/ML 3 ML PEN SC SCH ×4 (09:23→21:35)
[2016-11-27] MEDS ORDERED: NURSING VERBAL MED ORDER ONE (15:30)
--- NOTE | 2016-11-27 16:38 | Progress Note ---
Subjective Date of Service: Nov 27, 2016. Subjective pt has left sided body pain but was noted to have a stage 3 decubitus ulcer on left foot near 1st disatal metatarsal, but has also had previous toe amputations , no new fractures seen but multiple old fractures including pelvis and femur patient is in need of pain management and rehab referral Problem List Medical Problems: (1) Fall Status: Acute (2) Hyperglycemia Status: Acute (3) Renal failure Status: Acute Review of Systems Constitutional: + weakness, + fatigue, No fever, No chills Respiratory: No cough, No shortness of breath, No dyspnea on exertion Cardiac: + edema, No chest pain, No orthopnea, No PND Abdomen: No pain, No nausea, No vomiting, No diarrhea Skin: + problem reported (stage 3 decubutus on left foot not redened or infected at this time) Objective Vital Signs Date Time Temp Pulse Resp B/P (MAP) Pulse Ox O2 Delivery O2 Flow Rate FiO2 11/27/16 15:24 36.6 57 18 148/57 (87) 93 Room Air 11/27/16 11:21 95 Room Air 11/27/16 07:34 95 Room Air 11/27/16 06:26 36.6 64 20 165/90 93 Room Air 11/27/16 06:19 64 16 163/73 96 11/27/16 05:06 63 11/27/16 04:23 72 16 143/79 98 Room Air 11/27/16 02:22 36.6 58 18 163/61 96 Room Air Physical Exam General Appearance: WD/WN, + moderate distress Respiratory/Chest: chest non-tender, lungs clear Cardiovascular: regular rate, rhythm, no murmur Abdomen: normal bowel sounds, non tender, soft Extremities: + pertinent finding (ahortened ext rotated left leg, previous toe amputation and decubitus ulcer) Laboratory Results Last 24 Hours Test 11/27/16 03:10 11/27/16 05:20 11/27/16 07:21 11/27/16 11:37 White Blood Count 18.26 K/uL Red Blood Count 3.50 M/uL Hemoglobin 10.7 g/dL Hematocrit 33.4 % Mean Corpuscular Volume 95.4 fL Mean Corpuscular Hemoglobin 30.6 pg Mean Corpuscular Hemoglobin Concent 32.0 g/dl Platelet Count 256 K/uL Mean Platelet Volume 9.2 fL Neutrophils (%) (Auto) 89.4 % Lymphocytes (%) (Auto) 6.4 % Monocytes (%) (Auto) 3.3 % Eosinophils (%) (Auto) 0.3 % Basophils (%) (Auto) 0.1 % Neutrophils # (Auto) 16.31 K/uL Lymphocytes # (Auto) 1.17 K/uL Monocytes # (Auto) 0.61 K/uL Eosinophils # (Auto) 0.06 K/uL Basophils # (Auto) 0.02 K/uL RDW Standard Deviation 48.9 fL RDW Coefficient of Variation 14.2 % Immature Granulocyte % (Auto) 0.5 % Immature Granulocyte # (Auto) 0.09 K/uL Sodium Level 137 mmol/L Potassium Level 4.1 mmol/L Chloride Level 96 mmol/L Carbon Dioxide Level 31 mmol/L Anion Gap 10.0 mmol/L Blood Urea Nitrogen 60 mg/dl Creatinine 3.10 mg/dl Est Creatinine Clear Calc Drug Dose 12.9 ml/min Estimated GFR () 15.7 Estimated GFR (Non- 13.5 BUN/Creatinine Ratio 19.4 Random Glucose 376 mg/dl Calcium Level 9.2 mg/dl Total Bilirubin 0.4 mg/dl Aspartate Amino Transf (AST/SGOT) 13 U/L Alanine Aminotransferase (ALT/SGPT) 18 U/L Alkaline Phosphatase 150 U/L Total Creatine Kinase 72 U/L Creatine Kinase MB 1.0 ng/ml Creatine Kinase MB Ratio 1.4 Troponin I < 0.015 ng/ml Total Protein 8.1 gm/dl Albumin 3.6 gm/dl Globulin 4.5 gm/dl Albumin/Globulin Ratio 0.8 Beta-Hydroxybutyric Acid 1.15 mg/dL Urine Color YELLOW Urine Appearance CLEAR Urine pH 5.0 Urine Specific [place] 1.017 Urine Protein 2+ Urine Glucose (UA) 3+ Urine Ketones NEG Urine Occult Blood TRACE Urine Nitrite NEG Urine Bilirubin NEG Urine Urobilinogen NEG Urine Leukocyte Esterase NEG Urine WBC (Auto) 1-5 /hpf Urine RBC (Auto) 0-4 /hpf Urine Hyaline Casts (Auto) 1-5 /lpf Urine Epithelial Cells (Auto) >30 /lpf Urine Bacteria (Auto) NEG Bedside Glucose 249 mg/dl 228 mg/dl Assessment and Plan 81 F with fall and left knee pain, with no acute fractures but multiple chronic and some non healing fractures seen in hip and pelvis, foot ulcer noted on presentation, pt is diabetic diabetic foot infection, with =WBC of 18K blood cultures pending, Zosyn, renal function prevents contrast CT consider bone scan will have wound consult and consider other means [facility] PT/OT/social research assistant. Patient would likely benefit from inpatient rehabilitation stay. Diabetes mellitus/hyperglycemia-- Lantus 16 units Accu-Cheks before meals and at bedtime with NovoLog coverage per scale. acute chronic kidney failure stage 3 hold nephrotoxic meds, hydrate Hypertension/renal insufficiency- amlodipine 2.5 mg by mouth daily, atenolol 12.5 mg by mouth daily, and aspirin 81 mg by mouth daily. Hold furosemide 40 mg and losartan Hypercholesterolemia-- atorvastatin 80 mg by mouth daily. Hypothyroidism--levothyroxine sodium 50 g by mouth daily. GERD-- omeprazole 20 mg by mouth daily to pantoprazole 40 mg by mouth daily. Gout--allopurinol 300 mg by mouth daily.
[2016-11-27] MEDS ORDERED: PIPERACILL/TAZOBAC IV 3.375 GM in DEXTROSE 5% 100ML IV ONE (17:00)
[2016-11-27] MEDS ORDERED: PIPERACILL/TAZOBAC CONSULT ACTIVE PRN (17:00)
[2016-11-27] MEDS: PIPERACILL/TAZOBAC IV 3.375 GM in DEXTROSE 5% 100ML 100 ML IV SCH (21:28)
[2016-11-27] MEDS: ATORVASTATIN 10 MG TAB PO SCH (21:33)
[2016-11-27] MEDS: INSULIN GLARGINE SOLOSTAR 100 UNITS/ML 3 ML PEN SC SCH (21:39)
[2016-11-27] MEDS: EUCERIN CR 120 GM JAR EXT SCH (21:40)
[2016-11-28] VITALS (8 sets, daily range): BP systolic 125–172; BP diastolic 48–83; PULSE 58–66; TEMP 36.6–37.1; O2SAT 90–95; Ht 152.4 cm; Wt 76.9 kg
[2016-11-28] MEDS: CHECK CLONIDINE PATCH PLACEMENT SCH ×4 (00:25→23:23)
[2016-11-28] MEDS: SODIUM CHLORIDE 0.9% 1000ML 1,000 ML IV SCH ×3 (03:37→23:21)
[2016-11-28] MEDS: LEVOTHYROXINE 50 MCG TAB PO SCH (05:49)
[2016-11-28 07:47] LABS: BASO % 0.4 %; BASO ABS # 0.05 K/uL (0-0.2); COMPLETE YES; EOS % 5.2 %; HEMATOCRIT 28.8 % (37-47); IG% 0.3 %; LYMPH % 19.3 %; LYMPH ABS # 2.29 K/uL (1.2-3.4); MEAN CORPUSCULAR HEMOGLOBIN 30.3 pg (25-34); MEAN CORPUSCULAR HGB CONC 31.3 g/dl (32-36); MEAN PLATELET VOLUME 9.1 fL (7.4-10.4); MONO % 6.2 %; NEUT % 68.6 %; PLATELET COUNT 197 K/uL (130-400); RED BLOOD COUNT 2.97 M/uL (4.2-5.4); WHITE BLOOD COUNT 11.87 K/uL (4.8-10.8)
[2016-11-28 08:14] LABS: BUN/CREATININE RATIO 19.2 (10-20); CREATININE 2.9 mg/dl (0.60-1.20); MAGNESIUM 2.1 mg/dl (1.8-2.4); POTASSIUM 3.9 mmol/L (3.5-5.1)
[2016-11-28] MEDS: CALCIUM 600MG + VIT D 400 IU TAB PO SCH (08:14)
[2016-11-28] MEDS: CARVEDILOL 12.5 MG TAB PO SCH ×2 (08:15→20:29)
[2016-11-28] MEDS: ASPIRIN 81 MG ECTAB PO SCH (08:16)
[2016-11-28] MEDS: FERROUS GLUCONATE 324 MG TAB PO SCH ×2 (08:16→20:29)
[2016-11-28] MEDS: FUROSEMIDE 40 MG TAB PO SCH (08:16)
[2016-11-28] MEDS: AMLODIPINE BESYLATE 5 MG TAB PO SCH (08:17)
[2016-11-28] MEDS: MULTIVITAMIN TAB PO SCH (08:17)
[2016-11-28] MEDS: CLOPIDOGREL BISULFATE 75 MG TAB PO SCH (08:17)
[2016-11-28] MEDS: ALLOPURINOL 300 MG TAB PO SCH (08:18)
[2016-11-28] MEDS: CHOLECALCIFEROL 1000 INTER.UNIT TAB PO SCH ×2 (08:18→20:29)
[2016-11-28] MEDS: ACETAMINOPHEN 325 MG TAB PO PRN ×2 (08:19→20:41)
[2016-11-28 08:24] LABS: CALCIUM 8.5 mg/dl (8.5-10.1)
[2016-11-28] MEDS: INSULIN ASPART 100 UNITS/ML 3 ML PEN SC SCH ×4 (09:51→20:31)
[2016-11-28] MEDS: EUCERIN CR 120 GM JAR EXT SCH ×2 (09:53→20:29)
[2016-11-28] MEDS: PIPERACILL/TAZOBAC IV 3.375 GM in DEXTROSE 5% 100ML 100 ML IV SCH ×2 (10:26→21:34)
--- NOTE | 2016-11-28 15:17 | DIAGNOSTIC IMAGING REPORT ---
LEFT FOOT MIN 3 VIEWS ROUTINE CLINICAL HISTORY: Ulcer left foot COMPARISON: None. DISCUSSION: There are postsurgical changes of transmetatarsal amputations involving the third through fifth digits. There is heterotopic ossification within the soft tissue. There is a subluxation at the level of the proximal to phalangeal joint of the second toe. There is apparent soft tissue ulceration within the distal soft tissues medially. There is no conventional radiographic evidence of acute osteomyelitis. There are vascular calcifications present. There is calcaneal spurring. There are no acute fractures. IMPRESSION: Postsurgical change. No acute fractures. Distal soft tissue ulceration. No conventional radiographic evidence of acute osteomyelitis. Electronically signed by: Jose Armando Portillo M.D. 11/28/2016 3:15 PM Dictated Date/Time: 11/28/2016 3:13 PM
--- NOTE | 2016-11-28 17:21 | Progress Note ---
Subjective Date of Service: Nov 28, 2016. Subjective pt looks and feels better today, is more mentally clear, is very hard of hearing , less foot and leg pain but still max assist at PT and marked weakness, shoulder and pelvis pain foot pain 2/10, pelvis and shoulder 8/10 Problem List Medical Problems: (1) Fall Status: Acute (2) Hyperglycemia Status: Acute (3) Renal failure Status: Acute Review of Systems Constitutional: + weakness, + fatigue, No fever, No chills ENT: + hearing loss, No sore throat Respiratory: No cough, No sputum, No shortness of breath Cardiac: + edema, No chest pain, No orthopnea, No PND Abdomen: No pain, No nausea, No vomiting, No diarrhea Female : No dysuria, No urinary frequency Neurologic: + weakness, No memory loss Objective Vital Signs Date Time Temp Pulse Resp B/P (MAP) Pulse Ox O2 Delivery O2 Flow Rate FiO2 11/28/16 07:45 36.9 62 16 147/67 (93) 93 Room Air 11/28/16 04:00 36.8 59 16 125/50 (75) 95 Room Air 11/28/16 00:00 Room Air 11/27/16 22:46 37.0 62 18 156/78 (104) 93 Room Air 11/27/16 20:16 37.1 62 16 171/68 (102) 90 Room Air 11/27/16 16:00 93 Room Air 11/27/16 15:24 36.6 57 18 148/57 (87) 93 Room Air 11/27/16 11:21 95 Room Air Physical Exam General Appearance: WD/WN, + mild distress Eyes: PERRL, EOMI Neck: supple, no JVD Respiratory/Chest: chest non-tender, lungs clear, normal breath sounds Cardiovascular: regular rate, rhythm, + systolic murmur Abdomen: normal bowel sounds, non tender, soft Extremities: + swelling, + pertinent finding (open area left foot mediall plantar aspect) Laboratory Results Last 24 Hours Test 11/27/16 11:37 11/27/16 16:19 11/27/16 19:57 11/28/16 07:16 Bedside Glucose 228 mg/dl 113 mg/dl 144 mg/dl White Blood Count 11.87 K/uL Red Blood Count 2.97 M/uL Hemoglobin 9.0 g/dL Hematocrit 28.8 % Mean Corpuscular Volume 97.0 fL Mean Corpuscular Hemoglobin 30.3 pg Mean Corpuscular Hemoglobin Concent 31.3 g/dl Platelet Count 197 K/uL Mean Platelet Volume 9.1 fL Neutrophils (%) (Auto) 68.6 % Lymphocytes (%) (Auto) 19.3 % Monocytes (%) (Auto) 6.2 % Eosinophils (%) (Auto) 5.2 % Basophils (%) (Auto) 0.4 % Neutrophils # (Auto) 8.13 K/uL Lymphocytes # (Auto) 2.29 K/uL Monocytes # (Auto) 0.74 K/uL Eosinophils # (Auto) 0.62 K/uL Basophils # (Auto) 0.05 K/uL RDW Standard Deviation 50.3 fL RDW Coefficient of Variation 14.2 % Immature Granulocyte % (Auto) 0.3 % Immature Granulocyte # (Auto) 0.04 K/uL Test 11/28/16 07:33 Bedside Glucose 99 mg/dl Assessment and Plan 81 F with fall and left knee pain, with no acute fractures but multiple chronic and some non healing fractures seen in hip and pelvis, foot ulcer noted on presentation, pt is diabetic diabetic foot infection, leukocytosis improved with antibiotics, blood cultures pending, Zosyn, renal function prevents contrast CT order bone scan will have wound consult [facility] PT/OT/social sciences chair. Patient would likely benefit from inpatient rehabilitation stay, especially given pelvic fractures pain control. Diabetes mellitus/hyperglycemia-- controlled with Lantus 16 units Accu-Cheks before meals and at bedtime with NovoLog coverage per scale. acute chronic kidney failure stage 3 hold nephrotoxic meds, hydrate Hypertension/renal insufficiency- amlodipine 2.5 mg by mouth daily, atenolol 12.5 mg by mouth daily, and aspirin 81 mg by mouth daily. Hold furosemide 40 mg and losartan Hypercholesterolemia-- atorvastatin 80 mg by mouth daily. Hypothyroidism--levothyroxine sodium 50 g by mouth daily. GERD-- omeprazole 20 mg by mouth daily to pantoprazole 40 mg by mouth daily. Gout--allopurinol 300 mg by mouth daily.
--- NOTE | 2016-11-28 19:08 | DIAGNOSTIC IMAGING REPORT ---
3 phase limited bone scan BONE SCAN 3 PHASE LIMITED CLINICAL HISTORY: left foot rule out osteo cellulitis. Pain. TECHNIQUE: 3 phase bone scan following the administration of 26.369 mCi technetium 99m MDP. COMPARISON STUDY: None FINDINGS: Increased vascular flow to the mid to distal left foot as compared to the right. Delayed images show minimal degenerative activity of the right foot and ankle. Increased activity is noted base of the residual fifth metatarsal. Increased activity is also noted within the central tarsal metatarsal complex. This possibly is at the second/third tarsal metatarsal complex. Exact localization is difficult due to somewhat limited resolution. IMPRESSION: 1. Increased vascular flow to the left foot and ankle suggestive of cellulitis. 2. Increased activity base of the residual fifth metatarsal raising the possibility of osteomyelitis. 3. Nonspecific increase in activity central tarsal metatarsal complex of the left foot possibly on the basis of postoperative activity versus additional foci of osteomyelitis at the second/third tarsal metatarsal complex Electronically signed by: Gianluca Orantes M.D. 11/28/2016 7:07 PM Dictated Date/Time: 11/28/2016 6:59 PM
[2016-11-28] MEDS: ATORVASTATIN 10 MG TAB PO SCH (20:29)
[2016-11-28] MEDS: INSULIN GLARGINE SOLOSTAR 100 UNITS/ML 3 ML PEN SC SCH (20:31)
[2016-11-29] VITALS (11 sets, daily range): BP systolic 122–183; BP diastolic 64–75; PULSE 60–89; TEMP 36.5–37.7; O2SAT 90–94
[2016-11-29] MEDS: LEVOTHYROXINE 50 MCG TAB PO SCH (05:54)
[2016-11-29] MEDS: CHECK CLONIDINE PATCH PLACEMENT SCH ×3 (07:41→23:58)
[2016-11-29] MEDS: CARVEDILOL 12.5 MG TAB PO SCH (07:42)
[2016-11-29] MEDS: CALCIUM 600MG + VIT D 400 IU TAB PO SCH (07:42)
[2016-11-29] MEDS: FERROUS GLUCONATE 324 MG TAB PO SCH (07:43)
[2016-11-29] MEDS: MULTIVITAMIN TAB PO SCH (07:43)
[2016-11-29] MEDS: ASPIRIN 81 MG ECTAB PO SCH (07:43)
[2016-11-29] MEDS: FUROSEMIDE 40 MG TAB PO SCH (07:43)
[2016-11-29] MEDS: AMLODIPINE BESYLATE 5 MG TAB PO SCH (07:44)
[2016-11-29] MEDS: CHOLECALCIFEROL 1000 INTER.UNIT TAB PO SCH (07:44)
[2016-11-29] MEDS: CLOPIDOGREL BISULFATE 75 MG TAB PO SCH (07:44)
[2016-11-29] MEDS: ALLOPURINOL 300 MG TAB PO SCH (07:45)
[2016-11-29] MEDS: ACETAMINOPHEN 325 MG TAB PO PRN ×2 (07:49→17:17)
[2016-11-29 08:55] LABS: BASO % 0.5 %; BASO ABS # 0.06 K/uL (0-0.2); HEMATOCRIT 28.2 % (37-47); IG% 0.3 %; LYMPH % 14.4 %; LYMPH ABS # 1.87 K/uL (1.2-3.4); MEAN CELL VOLUME 95.3 fL (80-100); MEAN CORPUSCULAR HEMOGLOBIN 30.1 pg (25-34); MEAN CORPUSCULAR HGB CONC 31.6 g/dl (32-36); MEAN PLATELET VOLUME 8.6 fL (7.4-10.4); MONO % 6.2 %; NEUT % 73.6 %; PLATELET COUNT 182 K/uL (130-400); RED BLOOD COUNT 2.96 M/uL (4.2-5.4); WHITE BLOOD COUNT 12.97 K/uL (4.8-10.8)
--- NOTE | 2016-11-29 09:13 | CONSULTATION REPORT ---
DATE OF CONSULTATION: 11/28/2016 DATE OF CONSULTATION: 11/28/2016. CHIEF COMPLAINT: Nonhealing ulceration, left foot. HISTORY OF PRESENT ILLNESS: The patient was recently admitted to [facility] yesterday due to a fall. The patient states that she has had a prior history of an ulceration on the left foot for some time. The patient states that she has been under the care of a wound clinic in [place] for this problem but has had no substantial resolution. The patient denies any increased swelling, drainage, pain or redness at the site of the ulceration. The patient has had prior amputations of toes on this foot. The patient denies any fever, chills or night sweats. The patient denies any chest pain, shortness of breath, abdominal discomfort, nausea or vomiting. The patient denies any other systemic complaints at this time. PAST MEDICAL HISTORY: Positive for diabetes, hypercholesterolemia, hypertension, kidney stone formation, renal insufficiency, anxiety. PAST SURGICAL HISTORY: Positive for cholecystectomy, lobectomy, total knee replacement of both right and left and appendectomy. SOCIAL HISTORY: The patient is a nonsmoker. The patient lives alone at home. ALLERGIES: QUINOLONES, ATORVASTATIN, EZETIMIBE AND SIMVASTATIN. MEDICATIONS: Were noted in the nursing notes and were reviewed. REVIEW OF SYSTEMS: Ten systems were reviewed in their entirety and positive findings were noted in the chief complaint and history of present illness. PHYSICAL EXAMINATION: VITAL SIGNS: Were also reviewed and found to be unremarkable. The patient is afebrile. GENERAL: The patient is lying in hospital bed in no acute distress, alert and cooperative throughout the examination. HEAD, EYES, EARS, NOSE, AND THROAT: Pupils equal and reactive to light. Sclerae clear. NECK: Supple. CHEST: Heart and lungs clear to auscultation. EXTREMITY: Reveals the presence of a plantar ulceration on the left foot over the head of the first metatarsal measuring 1.5 x 2.1 x 0.4 cm. There is some central slough and surrounding undermined skin present. There is no active drainage or odor. No periwound erythema, or palpable fluctuance. Pulses are present but diminished in both the dorsal pedis and posterior tibial region. ABIs were 0.78 on the left and 0.67 on the right. NEUROLOGIC EXAMINATION: The patient is alert and oriented x3. No focal deficits were noted. IMPRESSION: Diabetic foot ulcer, Proctor grade 1, left foot. PLAN: At this time, the site did require debridement and with the patient's permission and after the application of topical Xylocaine 4% the site was debrided with scissors, forceps and a #5 curette. Surrounding undermining skin and central slough was removed. No significant bleeding occurred. The site will be dressed with Aquacel AG and Optifoam. Culture has been obtained of the site. An x-ray will be ordered of the foot to rule out any gross findings of underlying osteomyelitis. MRI may be ordered later depending on the patient's healing capacity. The patient will have waffle boots applied and orthotic consult for ongoing offloading issues. The patient will continue to be monitored while in the hospital and can be seen on an outpatient basis once discharged. This represented a nonexcisional debridement of less than 20 square cm.
[2016-11-29 09:23] LABS: BUN/CREATININE RATIO 15.7 (10-20); POTASSIUM 3.8 mmol/L (3.5-5.1)
[2016-11-29 09:28] LABS: CALCIUM 8.3 mg/dl (8.5-10.1)
[2016-11-29] MEDS: INSULIN ASPART 100 UNITS/ML 3 ML PEN SC SCH ×4 (09:37→20:51)
[2016-11-29] MEDS: SODIUM CHLORIDE 0.9% 1000ML 1,000 ML IV SCH ×2 (09:42→18:56)
[2016-11-29] MEDS: EUCERIN CR 120 GM JAR EXT SCH (09:43)
[2016-11-29] MEDS: PIPERACILL/TAZOBAC IV 3.375 GM in DEXTROSE 5% 100ML 100 ML IV SCH ×2 (09:51→22:33)
[2016-11-29 09:55] LABS: COMPLETE YES
--- NOTE | 2016-11-29 15:21 | Progress Note ---
Subjective Date of Service: Nov 29, 2016. Subjective Pt evaluation today including: conversation w/ patient, conversation w/ family (granddaughter) Pt states she is feeling overall improved. Does have LE pain, but better. Pt denies fever, SOB, chest pain, abd pain, n/v/c/d, LE swelling. ROS as noted above, otherwise neg. Problem List Medical Problems: (1) Fall Status: Acute (2) Hyperglycemia Status: Acute (3) Renal failure Status: Acute Objective Vital Signs Date Time Temp Pulse Resp B/P (MAP) Pulse Ox O2 Delivery O2 Flow Rate FiO2 11/29/16 14:45 36.5 64 20 176/69 (104) 94 11/29/16 11:18 37.2 60 20 156/68 (97) 92 11/29/16 09:30 37.0 60 153/68 (96) 11/29/16 08:00 Room Air 11/29/16 07:20 37.7 60 20 183/66 (105) 92 11/29/16 04:00 37.0 60 16 152/71 (98) 91 Room Air 11/29/16 00:00 91 Room Air 11/28/16 23:24 37.1 65 18 132/48 (76) 91 Room Air 11/28/16 21:33 150/69 (96) 11/28/16 19:35 37.1 66 18 172/66 (101) 93 Room Air 11/28/16 16:00 Room Air 11/28/16 15:49 164/83 (110) 11/28/16 15:32 36.6 65 20 171/66 (101) 90 Room Air Physical Exam General Appearance: WD/WN, no apparent distress Respiratory/Chest: normal breath sounds, no respiratory distress Cardiovascular: regular rate, rhythm, no edema Abdomen: non tender, soft Extremities: non-tender, no pedal edema Neurologic/Psychiatric: alert, normal mood/affect Skin: normal color, warm/dry Laboratory Results Last 24 Hours Test 11/28/16 16:08 11/28/16 20:01 11/29/16 07:39 11/29/16 08:46 Bedside Glucose 178 mg/dl 177 mg/dl 136 mg/dl White Blood Count 12.97 K/uL Red Blood Count 2.96 M/uL Hemoglobin 8.9 g/dL Hematocrit 28.2 % Mean Corpuscular Volume 95.3 fL Mean Corpuscular Hemoglobin 30.1 pg Mean Corpuscular Hemoglobin Concent 31.6 g/dl Platelet Count 182 K/uL Mean Platelet Volume 8.6 fL Neutrophils (%) (Auto) 73.6 % Lymphocytes (%) (Auto) 14.4 % Monocytes (%) (Auto) 6.2 % Eosinophils (%) (Auto) 5.0 % Basophils (%) (Auto) 0.5 % Neutrophils # (Auto) 9.54 K/uL Lymphocytes # (Auto) 1.87 K/uL Monocytes # (Auto) 0.81 K/uL Eosinophils # (Auto) 0.65 K/uL Basophils # (Auto) 0.06 K/uL RDW Standard Deviation 49.5 fL RDW Coefficient of Variation 14.3 % Immature Granulocyte % (Auto) 0.3 % Immature Granulocyte # (Auto) 0.04 K/uL Red Blood Cell Morphology Unremarkable Sodium Level 141 mmol/L Potassium Level 3.8 mmol/L Chloride Level 106 mmol/L Carbon Dioxide Level 25 mmol/L Anion Gap 10.0 mmol/L Blood Urea Nitrogen 47 mg/dl Creatinine 3.00 mg/dl Est Creatinine Clear Calc Drug Dose 13.3 ml/min Estimated GFR () 16.3 Estimated GFR (Non- 14.1 BUN/Creatinine Ratio 15.7 Random Glucose 165 mg/dl Calcium Level 8.3 mg/dl Magnesium Level 2.0 mg/dl Test 11/29/16 11:27 Bedside Glucose 266 mg/dl Assessment and Plan 81 F with fall and left knee pain, with no acute fractures but multiple chronic and some non healing fractures seen in hip and pelvis, foot ulcer noted on presentation DM foot infection: leukocytosis improved with antibiotics blood cx neg, Zosyn, renal function prevents contrast CT Bone scan for ? osteo Wound cx + for gram neg bacilli with sensi pending Bedside debridement with Dr. Johnson on 11/28, awaiting further recs Weakness PT/OT/marriage and family social worker. Patient would likely benefit from inpatient rehabilitation stay, especially given pelvic fractures pain control. Diabetes mellitus/hyperglycemia-- controlled with Lantus 16 units Accu-Cheks before meals and at bedtime with NovoLog coverage per scale. acute chronic kidney failure stage 3 hold nephrotoxic meds, hydrate Hypertension/renal insufficiency- amlodipine 2.5 mg by mouth daily, atenolol 12.5 mg by mouth daily, and aspirin 81 mg by mouth daily. Hold furosemide 40 mg and losartan Hypercholesterolemia-- atorvastatin 80 mg by mouth daily. Hypothyroidism--levothyroxine sodium 50 g by mouth daily. GERD-- omeprazole 20 mg by mouth daily to pantoprazole 40 mg by mouth daily. Gout--allopurinol 300 mg by mouth daily.
[2016-11-29] MEDS: ATORVASTATIN 10 MG TAB PO SCH (20:49)
[2016-11-29] MEDS: INSULIN GLARGINE SOLOSTAR 100 UNITS/ML 3 ML PEN SC SCH (20:51)
[2016-11-30] VITALS: O2SAT 94
[2016-11-30] MEDS: SODIUM CHLORIDE 0.9% 1000ML 1,000 ML IV SCH ×2 (05:23→15:03)
[2016-11-30 05:48] LABS: BASO % 0.3 %; BASO ABS # 0.05 K/uL (0-0.2); COMPLETE YES; HEMATOCRIT 27.9 % (37-47); IG% 0.3 %; LYMPH % 14.4 %; LYMPH ABS # 2.11 K/uL (1.2-3.4); MEAN CELL VOLUME 94.3 fL (80-100); MEAN CORPUSCULAR HEMOGLOBIN 30.4 pg (25-34); MEAN CORPUSCULAR HGB CONC 32.3 g/dl (32-36); MEAN PLATELET VOLUME 8.7 fL (7.4-10.4); MONO % 5.9 %; NEUT % 76.1 %; PLATELET COUNT 208 K/uL (130-400); RED BLOOD COUNT 2.96 M/uL (4.2-5.4); WHITE BLOOD COUNT 14.69 K/uL (4.8-10.8)
[2016-11-30 06:25] LABS: BUN/CREATININE RATIO 14.7 (10-20); CALCIUM 8.3 mg/dl (8.5-10.1); CREATININE 3.1 mg/dl (0.60-1.20); POTASSIUM 3.7 mmol/L (3.5-5.1)
[2016-11-30 07:40] VITALS: BP 187/74; PULSE 65; TEMP 37.2; O2SAT 93
[2016-11-30] MEDS: ASPIRIN 81 MG ECTAB PO SCH (07:59)
[2016-11-30] MEDS: ALLOPURINOL 300 MG TAB PO SCH (07:59)
[2016-11-30] MEDS: AMLODIPINE BESYLATE 5 MG TAB PO SCH (07:59)
[2016-11-30] MEDS: CLOPIDOGREL BISULFATE 75 MG TAB PO SCH (07:59)
[2016-11-30] MEDS: LEVOTHYROXINE 50 MCG TAB PO SCH (07:59)
[2016-11-30] MEDS: CARVEDILOL 12.5 MG TAB PO SCH ×2 (08:00→21:10)
[2016-11-30] MEDS: MULTIVITAMIN TAB PO SCH (08:00)
[2016-11-30] MEDS: FUROSEMIDE 40 MG TAB PO SCH (08:00)
[2016-11-30] MEDS: CALCIUM 600MG + VIT D 400 IU TAB PO SCH (08:01)
[2016-11-30] MEDS: FERROUS GLUCONATE 324 MG TAB PO SCH ×2 (08:01→21:10)
[2016-11-30] MEDS: CHOLECALCIFEROL 1000 INTER.UNIT TAB PO SCH ×2 (08:01→21:11)
[2016-11-30] MEDS: CHECK CLONIDINE PATCH PLACEMENT SCH ×2 (08:02→17:45)
[2016-11-30] MEDS: EUCERIN CR 120 GM JAR EXT SCH ×2 (08:02→20:00)
[2016-11-30] MEDS: ACETAMINOPHEN 325 MG TAB PO PRN ×3 (08:58→21:19)
[2016-11-30] MEDS: INSULIN ASPART 100 UNITS/ML 3 ML PEN SC SCH ×4 (09:06→21:00)
[2016-11-30] MEDS: PIPERACILL/TAZOBAC IV 3.375 GM in DEXTROSE 5% 100ML 100 ML IV SCH ×2 (10:41→21:19)
[2016-11-30 15:09] VITALS: BP 165/94; PULSE 61; TEMP 36.7; O2SAT 96
--- NOTE | 2016-11-30 18:14 | Progress Note ---
Subjective Date of Service: Nov 30, 2016. Subjective Pt evaluation today including: conversation w/ patient Pt is having generalized pain on the L, but not specific to her foot. L LE pain is actually much better. Tolerating PO without issue. Pt denies fever, SOB, chest pain, abd pain, n/v/c/d, LE pain or swelling. ROS as noted above, otherwise neg. Problem List Medical Problems: (1) Fall Status: Acute (2) Hyperglycemia Status: Acute (3) Renal failure Status: Acute Objective Vital Signs Date Time Temp Pulse Resp B/P (MAP) Pulse Ox O2 Delivery O2 Flow Rate FiO2 11/30/16 16:00 Room Air 11/30/16 15:09 36.7 61 18 165/94 (117) 96 Room Air 11/30/16 08:00 Room Air 11/30/16 07:40 37.2 65 20 187/74 (111) 93 Room Air 11/30/16 00:00 94 Room Air 11/29/16 23:30 37.2 67 18 176/75 (108) 92 Room Air 11/29/16 20:46 37.3 66 20 170/64 (99) 90 Room Air 11/29/16 20:07 36.5 64 20 94 11/29/16 20:00 94 Room Air Physical Exam Comments: General Appearance: WD/WN, no apparent distress Respiratory/Chest: normal breath sounds, no respiratory distress Cardiovascular: regular rate, rhythm, no edema Abdomen: non tender, soft Extremities: non-tender, no pedal edema Neurologic/Psychiatric: alert, normal mood/affect Skin: normal color, warm/dry Laboratory Results Last 24 Hours Test 11/29/16 20:04 11/30/16 05:35 11/30/16 08:11 11/30/16 11:33 Bedside Glucose 194 mg/dl 128 mg/dl 223 mg/dl White Blood Count 14.69 K/uL Red Blood Count 2.96 M/uL Hemoglobin 9.0 g/dL Hematocrit 27.9 % Mean Corpuscular Volume 94.3 fL Mean Corpuscular Hemoglobin 30.4 pg Mean Corpuscular Hemoglobin Concent 32.3 g/dl Platelet Count 208 K/uL Mean Platelet Volume 8.7 fL Neutrophils (%) (Auto) 76.1 % Lymphocytes (%) (Auto) 14.4 % Monocytes (%) (Auto) 5.9 % Eosinophils (%) (Auto) 3.0 % Basophils (%) (Auto) 0.3 % Neutrophils # (Auto) 11.19 K/uL Lymphocytes # (Auto) 2.11 K/uL Monocytes # (Auto) 0.86 K/uL Eosinophils # (Auto) 0.44 K/uL Basophils # (Auto) 0.05 K/uL RDW Standard Deviation 48.7 fL RDW Coefficient of Variation 14.1 % Immature Granulocyte % (Auto) 0.3 % Immature Granulocyte # (Auto) 0.04 K/uL Sodium Level 143 mmol/L Potassium Level 3.7 mmol/L Chloride Level 107 mmol/L Carbon Dioxide Level 28 mmol/L Anion Gap 8.0 mmol/L Blood Urea Nitrogen 46 mg/dl Creatinine 3.10 mg/dl Est Creatinine Clear Calc Drug Dose 12.9 ml/min Estimated GFR () 15.7 Estimated GFR (Non- 13.5 BUN/Creatinine Ratio 14.7 Random Glucose 121 mg/dl Calcium Level 8.3 mg/dl Magnesium Level 2.0 mg/dl Test 11/30/16 16:09 Bedside Glucose 189 mg/dl Assessment and Plan 81 F with fall and left knee pain, with no acute fractures but multiple chronic and some non healing fractures seen in hip and pelvis, foot ulcer noted on presentation DM foot infection: leukocytosis improved with antibiotics blood cx neg, Zosyn, renal function prevents contrast CT Bone scan for ? osteo Wound cx + for gram neg bacilli with sensi pending Bedside debridement with Dr. Johnson on 11/28, awaiting further recs Weakness PT/OT/protective services social worker. Patient would likely benefit from inpatient rehabilitation stay, especially given pelvic fractures pain control. Diabetes mellitus/hyperglycemia-- controlled with Lantus 16 units Accu-Cheks before meals and at bedtime with NovoLog coverage per scale. acute chronic kidney failure stage 3 hold nephrotoxic meds, hydrate Hypertension/renal insufficiency- amlodipine 2.5 mg by mouth daily, atenolol 12.5 mg by mouth daily, and aspirin 81 mg by mouth daily. Hold furosemide 40 mg and losartan Hypercholesterolemia-- atorvastatin 80 mg by mouth daily. Hypothyroidism--levothyroxine sodium 50 g by mouth daily. GERD-- omeprazole 20 mg by mouth daily to pantoprazole 40 mg by mouth daily. Gout--allopurinol 300 mg by mouth daily. PT/OT recs for SNF vs rehab, accepted at either pending insurance auth
[2016-11-30] MEDS: ATORVASTATIN 10 MG TAB PO SCH (21:10)
[2016-11-30] MEDS: INSULIN GLARGINE SOLOSTAR 100 UNITS/ML 3 ML PEN SC SCH (21:14)
[2016-11-30 21:15] VITALS: BP 186/81; PULSE 78; TEMP 39.4; O2SAT 96
[2016-11-30 23:57] VITALS: BP 170/71; PULSE 73; TEMP 38.1; O2SAT 93
[2016-12-01] MEDS: CHECK CLONIDINE PATCH PLACEMENT SCH ×3 (00:22→15:48)
[2016-12-01] MEDS: SODIUM CHLORIDE 0.9% 1000ML 1,000 ML IV SCH ×3 (00:49→19:43)
[2016-12-01] MEDS: ACETAMINOPHEN 325 MG TAB PO PRN ×3 (04:57→15:48)
[2016-12-01 05:02] VITALS: TEMP 39.2
[2016-12-01] MEDS: LEVOTHYROXINE 50 MCG TAB PO SCH (05:51)
[2016-12-01 07:20] VITALS: BP 185/76; PULSE 67; TEMP 37.8; O2SAT 94
[2016-12-01] MEDS: CLONIDINE HCL 0.1 MG/24 HR TRANSDERM SYS TD SCH (07:44)
[2016-12-01] MEDS: EUCERIN CR 120 GM JAR EXT SCH ×2 (07:45→19:39)
[2016-12-01] MEDS: ASPIRIN 81 MG ECTAB PO SCH (07:46)
[2016-12-01] MEDS: FERROUS GLUCONATE 324 MG TAB PO SCH ×2 (07:46→19:41)
[2016-12-01] MEDS: CHOLECALCIFEROL 1000 INTER.UNIT TAB PO SCH ×2 (07:46→19:42)
[2016-12-01] MEDS: ALLOPURINOL 300 MG TAB PO SCH (07:46)
[2016-12-01] MEDS: AMLODIPINE BESYLATE 5 MG TAB PO SCH (07:46)
[2016-12-01] MEDS: MULTIVITAMIN TAB PO SCH (07:47)
[2016-12-01] MEDS: CALCIUM 600MG + VIT D 400 IU TAB PO SCH (07:47)
[2016-12-01] MEDS: CARVEDILOL 12.5 MG TAB PO SCH ×2 (07:47→19:42)
[2016-12-01] MEDS: CLOPIDOGREL BISULFATE 75 MG TAB PO SCH (07:47)
[2016-12-01] MEDS: FUROSEMIDE 40 MG TAB PO SCH (07:47)
[2016-12-01] MEDS: INSULIN ASPART 100 UNITS/ML 3 ML PEN SC SCH ×4 (09:27→21:03)
[2016-12-01] MEDS: PIPERACILL/TAZOBAC IV 3.375 GM in DEXTROSE 5% 100ML 100 ML IV SCH ×2 (10:29→21:41)
[2016-12-01 12:06] VITALS: BP 179/76; PULSE 66; TEMP 37.5; O2SAT 94
[2016-12-01 15:21] VITALS: BP 157/85; PULSE 74; TEMP 38; O2SAT 91
--- NOTE | 2016-12-01 16:01 | Progress Note ---
Subjective Date of Service: Dec 01, 2016. Subjective Pt evaluation today including: conversation w/ patient, chart review, conversation w/ retirement consultant Pt with no new concerns. Tolerating PO well. Pt denies SOB, chest pain, abd pain, n/v/c/d, LE pain or swelling. L foot with some pain, but much improved from HAND MOLDER. Nursing reports multiple fevers overnight that break with tylenol. Blood cx sent. Pt otherwise stable without new concerns from nursing otherwise. Problem List Medical Problems: (1) Fall Status: Acute (2) Hyperglycemia Status: Acute (3) Renal failure Status: Acute Review of Systems All Other Systems: Reviewed and Negative Objective Vital Signs Date Time Temp Pulse Resp B/P (MAP) Pulse Ox O2 Delivery O2 Flow Rate FiO2 12/01/16 15:21 38.0 74 18 157/85 (109) 91 Room Air 12/01/16 12:06 37.5 66 20 179/76 (110) 94 Room Air 12/01/16 08:00 Room Air 12/01/16 07:20 37.8 67 20 185/76 (112) 94 Room Air 12/01/16 05:02 39.2 12/01/16 00:15 Room Air 11/30/16 23:57 38.1 73 20 170/71 (104) 93 Room Air 11/30/16 21:15 39.4 78 18 186/81 (116) 96 Room Air 11/30/16 16:00 Room Air Physical Exam Comments: General Appearance: WD/WN, no apparent distress Respiratory/Chest: normal breath sounds, no respiratory distress Cardiovascular: regular rate, rhythm, no edema Abdomen: non tender, soft Extremities: non-tender, no pedal edema Neurologic/Psychiatric: alert, normal mood/affect Skin: normal color, warm/dry Laboratory Results Last 24 Hours Test 11/30/16 16:09 11/30/16 20:13 12/01/16 07:38 12/01/16 11:36 Bedside Glucose 189 mg/dl 143 mg/dl 174 mg/dl 249 mg/dl Assessment and Plan 81 F with fall and left knee pain, with no acute fractures but multiple chronic and some non healing fractures seen in hip and pelvis, foot ulcer noted on presentation DM foot infection: leukocytosis improved with antibiotics, however now with fevers blood cx neg on admission, repeat pending Zosyn, renal function prevents contrast CT Bone scan for ? osteo, spoke with Dr. Johnson who feels that bone scans are less diagnostic than MRI, MRI pending Wound cx + for gram neg bacilli with sensi pending Bedside debridement with Dr. Johnson on 11/28, awaiting further recs Fevers: As above UA on admission neg, repeat pending Add vanco for additional coverage Weakness PT/OT/mental health social worker. Patient would likely benefit from inpatient rehabilitation stay, especially given pelvic fractures pain control. Diabetes mellitus/hyperglycemia-- controlled with Lantus 16 units Accu-Cheks before meals and at bedtime with NovoLog coverage per scale. acute chronic kidney failure stage 3 hold nephrotoxic meds, hydrate Hypertension/renal insufficiency- amlodipine 2.5 mg by mouth daily, atenolol 12.5 mg by mouth daily, and aspirin 81 mg by mouth daily. Hold furosemide 40 mg and losartan Hypercholesterolemia-- atorvastatin 80 mg by mouth daily. Hypothyroidism--levothyroxine sodium 50 g by mouth daily. GERD-- omeprazole 20 mg by mouth daily to pantoprazole 40 mg by mouth daily. Gout--allopurinol 300 mg by mouth daily. PT/OT recs for SNF vs rehab, accepted at either pending insurance auth
[2016-12-01] MEDS ORDERED: VANCOMYCIN CONSULT ACTIVE PRN (16:30)
--- NOTE | 2016-12-01 16:31 | Pharmacy Progress Note ---
Pharmacy Abx Initial Consult Date of Service Dec 01, 2016. Pharmacy Dosing Scope Date of Consult: 12/01/16 Consultation requested by: Dr. Lee Pharmacy is consulted to initiate vancomycin IV dosing therapy, order appropriate labs and adjust drug dose/frequency. Subjective The patient is a 81 year old female admitted on Nov 27, 2016 at 05:32 for diabetic foot infection. Objective Height (Feet): 5 Height (Inches): 0.00 Weight (Kilograms): 73.000 Vital Signs (Past 12Hrs) Vital Signs Past 12 Hours Date Time Temp Pulse Resp B/P (MAP) Pulse Ox O2 Delivery O2 Flow Rate FiO2 12/01/16 16:00 Room Air 12/01/16 15:21 38.0 74 18 157/85 (109) 91 Room Air 12/01/16 12:06 37.5 66 20 179/76 (110) 94 Room Air 12/01/16 08:00 Room Air 12/01/16 07:20 37.8 67 20 185/76 (112) 94 Room Air 12/01/16 05:02 39.2 Lab Results (24Hrs) Test 12/01/16 11:36 12/01/16 16:04 Bedside Glucose 249 mg/dl (70-90) 212 mg/dl (70-90) Micro Results Date/Time Source Procedure Growth Status 11/30/16 22:20 Blood Blood Culture Pending Received 11/30/16 22:15 Blood Blood Culture Pending Received 11/27/16 05:10 Blood Blood Culture - Preliminary NO GROWTH TO DATE. Resulted 11/27/16 05:10 Blood Blood Culture - Preliminary NO GROWTH TO DATE. Resulted 11/27/16 12:00 Skin Foot Left Gram Stain - Final Resulted 11/27/16 12:00 Wound Culture - Preliminary Gram Negative Bacilli Acinetobacter Baumannii/Haemol Enterococcus Faecalis Resulted ORDERED: CHERISE WILLIAMSON/LUAN COMMENTS: Has Specimen Been Obtained/Collected? Y Procedure Result Verified Site GRAM STAIN Final 11/28/16-0743 RESULT FEW WBCs SEEN FEW GRAM POSITIVE COCCI FEW GRAM POSITIVE BACILLI FEW GRAM NEGATIVE COCCI RARE GRAM NEGATIVE BACILLI SURFACE WOUND CULTURE Preliminary 12/01/16-1045 Organism 1 GRAM NEGATIVE BACILLI QUANITY MANY SENS SENSITIVITY TO FOLLOW Organism 2 ACINETOBACTER BAUMANNII/HAEMOL QUANITY MODERATE SENS SENSITIVITY TO FOLLOW Organism 3 ENTEROCOCCUS FAECALIS QUANITY UNABLE TO QUANTITATE SENS SENSITIVITY TO FOLLOW AC GRECIAU/DUNIA E FAECALIS M.I.C. RX M.I.C. RX --------- ------ --------- ------ TRIMET/SULFA <=2/38 S AMPICILLIN <=2 S AMPICILLIN/SUL 16/8 I CEFTAZIDIME 8 S CEFEPIME >16 R GENT SYNERGY <=500 S VANCOMYCIN 2 S PENICILLIN 2 S GENTAMICIN 8 I TOBRAMYCIN >8 R AMIKACIN <=16 S CIPROFLOXACIN <=1 S LEVOFLOXACIN <=2 S DAPTOMYCIN 1 S STREP SYNERGY >1000 R ENTEROCOCCUS FAECALIS: POSITIVE COMBO 33 Streptomycin Synergy Screen R CONTINUED ON NEXT PAGE RUN DATE: 12/01/16 [facility] PAGE 2 RUN TIME: 1045 Specimen Inquiry SPEC: [id number] PATIENT: JESSENIA MEIER [id number] ( Continued) Procedure Result Verified Site SURFACE WOUND CULTURE Preliminary (continued) Gentamicin Synergy Screen S 2. ACINETOBACTER BAUMANNII/HAEMOL Target Route Dose RX AB Cost M.I.C. IQ ------ ----- ------ -- ------ -------- - ------ TRIMET/SULFA S <=2/38 AMPICILLIN/SUL I 16/8 CEFTAZIDIME S 8 CEFEPIME R >16 GENTAMICIN I 8 TOBRAMYCIN R >8 AMIKACIN S <=16 CIPROFLOXACIN S <=1 LEVOFLOXACIN S <=2 3. ENTEROCOCCUS FAECALIS Target Route Dose RX AB Cost M.I.C. 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 Plan Vancomycin IV * Loading dose: 1500 mg (20 mg/kg) - slightly less than usual 25 mg/kg load due to significantly reduced CrCl * t1/2 estimated at 46 hours * Random level with AM labs on 12/03 - when patient will most likely need re- dosed (level should be ~17 at this time) Piperacillin/tazobactam * Pharmacy already dosing at 3.375 gm EI q12h - okay to continue Pharmacy will continue to follow and will adjust dose/frequency as necessary. Thank you.
[2016-12-01 16:58] LABS: URINE APPEARANCE CLEAR (CLEAR); URINE BILIRUBIN NEG (NEG); URINE COLOR YELLOW; URINE EPITHELIAL CELL AUTO 20-30 /lpf (0-5); URINE NITRITE NEG (NEG); URINE SPECIFIC GRAVITY 1.018 (1.000-1.030); UROBILINOGEN NEG (NEG); ZZURINE CULT IF INDIC CATH YES
[2016-12-01 16:59] LABS: MANUAL MICROSCOPIC REQUIRED? NO; REVIEW REQ? YES
[2016-12-01] MEDS ORDERED: VANCOMYCIN INJ 1,500 MG in SODIUM CHLORIDE 0.9% 500ML 500 ML IV ONE (17:00)
[2016-12-01 17:12] LABS: URINE PATH CASTS 0-3 GRANULAR CASTS /lpf (0)
[2016-12-01 17:15] LABS: URINE MUCUS PRESENT (NONE PRSENT)
[2016-12-01 17:38] VITALS: BP 158/74; PULSE 76; TEMP 37.8; O2SAT 93
[2016-12-01] MEDS: ATORVASTATIN 10 MG TAB PO SCH (20:53)
[2016-12-01] MEDS ORDERED: VANCOMYCIN INJ 1,000 MG in SODIUM CHLORIDE 0.9% 250ML 250 ML IV SCH (21:00)
[2016-12-01] MEDS: INSULIN GLARGINE SOLOSTAR 100 UNITS/ML 3 ML PEN SC SCH (21:02)
[2016-12-01 23:31] VITALS: BP 161/70; PULSE 79; TEMP 37.8; O2SAT 93
[2016-12-02] MEDS: CHECK CLONIDINE PATCH PLACEMENT SCH ×3 (00:02→16:33)
[2016-12-02] MEDS: ACETAMINOPHEN 325 MG TAB PO PRN ×5 (00:24→22:44)
[2016-12-02 01:11] VITALS: TEMP 37.5
[2016-12-02] MEDS: LEVOTHYROXINE 50 MCG TAB PO SCH (05:43)
[2016-12-02 07:18] VITALS: BP 159/68; PULSE 61; TEMP 38.2; O2SAT 95
[2016-12-02] MEDS: SODIUM CHLORIDE 0.9% 1000ML 1,000 ML IV SCH ×2 (07:58→18:53)
[2016-12-02] MEDS: EUCERIN CR 120 GM JAR EXT SCH ×2 (07:59→21:25)
[2016-12-02] MEDS: MULTIVITAMIN TAB PO SCH (08:00)
[2016-12-02] MEDS: FERROUS GLUCONATE 324 MG TAB PO SCH ×2 (08:00→21:26)
[2016-12-02] MEDS: CARVEDILOL 12.5 MG TAB PO SCH ×2 (08:01→21:28)
[2016-12-02] MEDS: AMLODIPINE BESYLATE 5 MG TAB PO SCH (08:01)
[2016-12-02] MEDS: FUROSEMIDE 40 MG TAB PO SCH (08:01)
[2016-12-02] MEDS: ASPIRIN 81 MG ECTAB PO SCH (08:01)
[2016-12-02] MEDS: CALCIUM 600MG + VIT D 400 IU TAB PO SCH (08:01)
[2016-12-02] MEDS: ALLOPURINOL 300 MG TAB PO SCH (08:01)
[2016-12-02] MEDS: CLOPIDOGREL BISULFATE 75 MG TAB PO SCH (08:01)
[2016-12-02] MEDS: CHOLECALCIFEROL 1000 INTER.UNIT TAB PO SCH ×2 (08:01→21:27)
[2016-12-02] MEDS: INSULIN ASPART 100 UNITS/ML 3 ML PEN SC SCH ×4 (08:46→22:42)
[2016-12-02 08:47] VITALS: TEMP 37.5
--- NOTE | 2016-12-02 09:13 | Pharmacy Progress Note ---
Pharmacy Abx Dose Short Note Date of Service Dec 02, 2016. Assessment & Plan Assessment 81 year old female receiving Zosyn and vancomycin for treatment of diabetic foot infection and possible osteo?? Further cultures have resulted: RECD: 11/28/16 [facility] DR: Pedro Pablo Gay M.D. SOURCE: SKIN ENTR: 11/28/[address]: Doe Mercedes M.D. SPDESC: FOOT LEFT Jose Wallace M.D., Mark R., DO ORDERED: SURF WND [facility] COMMENTS: Has Specimen Been Obtained/Collected? Y Procedure Result Verified Site GRAM STAIN Final 11/28/16 RESULT FEW WBCs SEEN FEW GRAM POSITIVE COCCI FEW GRAM POSITIVE BACILLI FEW GRAM NEGATIVE COCCI RARE GRAM NEGATIVE BACILLI SURFACE WOUND CULTURE Final 12/02/16 Organism 1 ACINETOBACTER BAUMANNII/HAEMOL#2 QUANITY MANY SENS SENSITIVITY TO FOLLOW Organism 2 ACINETOBACTER BAUMANNII/HAEMOL QUANITY MODERATE SENS SENSITIVITY TO FOLLOW Organism 3 ENTEROCOCCUS FAECALIS QUANITY UNABLE TO QUANTITATE SENS SENSITIVITY TO FOLLOW AC BAU/HAE#2 AC BAU/HAE E FAECALIS M.I.C. RX M.I.C. RX M.I.C. RX --------- ------ --------- ------ --------- ------ TRIMET/SULFA <=2/38 S <=2/38 S AMPICILLIN <=2 S AMPICILLIN/SUL <=8/4 S 16/8 I CEFTAZIDIME 4 S 8 S CEFEPIME <=4 S >16 R GENT SYNERGY <=500 S VANCOMYCIN 2 S PENICILLIN 2 S GENTAMICIN <=4 S 8 I TOBRAMYCIN <=4 S >8 R AMIKACIN <=16 S <=16 S CIPROFLOXACIN <=1 S <=1 S LEVOFLOXACIN <=2 S <=2 S DAPTOMYCIN 1 S STREP SYNERGY >1000 R ENTEROCOCCUS FAECALIS: POSITIVE COMBO 33 Streptomycin Synergy Screen R CONTINUED ON NEXT PAGE RUN DATE: 12/02/16 [facility] PAGE 2 RUN TIME: 0759 Specimen Inquiry SPEC: [id number] PATIENT: RENEA,JESSENIA [id number] ( Continued) Procedure Result Verified Site SURFACE WOUND CULTURE Final (continued) Gentamicin Synergy Screen S 1. ACINETOBACTER BAUMANNII/HAEMOL#2 Target Route Dose RX AB Cost M.I.C. IQ ------ ----- ------ -- ------ -------- - ------ TRIMET/SULFA S <=2/38 AMPICILLIN/SUL S <=8/4 CEFTAZIDIME S 4 CEFEPIME S <=4 GENTAMICIN S <=4 TOBRAMYCIN S <=4 AMIKACIN S <=16 CIPROFLOXACIN S <=1 LEVOFLOXACIN S <=2 2. ACINETOBACTER BAUMANNII/HAEMOL Target Route Dose RX AB Cost M.I.C. IQ ------ ----- ------ -- ------ -------- - ------ TRIMET/SULFA S <=2/38 AMPICILLIN/SUL I 16/8 CEFTAZIDIME S 8 CEFEPIME R >16 GENTAMICIN I 8 TOBRAMYCIN R >8 AMIKACIN S <=16 CIPROFLOXACIN S <=1 LEVOFLOXACIN S <=2 3. ENTEROCOCCUS FAECALIS Target Route Dose RX AB Cost M.I.C. IQ ------ ----- ------ -- ------ -------- - ------ AMPICILLIN S <=2 GENT SYNERGY S <=500 VANCOMYCIN S 2 PENICILLIN S 2 DAPTOMYCIN S 1 STREP SYNERGY R >1000 Plan Upon further investigation, Zosyn would not cover the acinetobacter - only beta- lactam/beta-lactamase inhibitor combo that would work is one that includes a sulbactam. Since one of the acinetobacters is intermediate to ampicillin/sulbactam, would recommend switching to ceftazidime or one of the carbapenems. Antimicrobial stewardship pharmacist will f/u with physician today to discuss change to therapy. Pharmacy will continue to follow and will adjust dose/frequency as necessary. Thank you.
--- NOTE | 2016-12-02 09:13 | DIAGNOSTIC IMAGING REPORT ---
MRI OF THE LEFT FOREFOOT WITHOUT IV CONTRAST CLINICAL HISTORY: Left foot infection. Clinical concern for osteomyelitis. Abnormal bone scan. COMPARISON STUDY: Radiographs of the left foot dated 11/28/2016. Nuclear bone scan of the left foot dated 11/28/2016. TECHNIQUE: MRI of the left forefoot is performed utilizing various T1 and T2-weighted sequences in the axial, sagittal, and coronal planes. IV contrast was not administered for this examination. 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 There is significant marrow edema identified within the remaining shaft of the first metatarsal, with drop in signal on T1-weighted sequence and increased signal on the STIR sequence. There is cortical destruction at the resection margin and along the plantar aspect of the remaining first metatarsal. These findings are highly concerning for osteomyelitis. No additional foci of similar-appearing marrow change are identified throughout the left forefoot. Foci of arthritic change and edema are seen at the fourth and fifth tarsometatarsal joints. Mild degenerative change is also seen at the fourth and fifth metatarsophalangeal joints. There is significant soft tissue edema identified in the forefoot, greatest medially around the first metatarsal. No organized fluid collection is clearly seen to indicate abscess. There is nonspecific myositis in the regional musculature. The visualized plantar fascia is normal. Foci of susceptibility artifact within the medial soft tissues are likely on a postoperative basis. IMPRESSION: 1. 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 2. Findings are consistent with cellulitis in the forefoot, greatest medially. 3. Findings are highly concerning for osteomyelitis involving the remaining first metatarsal shaft. Dictated: 12/02/2016 8:14 AM Transcribed: 12/02/2016 9:13 AM Aubrey Electronically signed by: Doe Caceres M.D. 12/02/2016 9:22 AM Dictated Date/Time: 12/02/2016 8:14 AM
[2016-12-02] MEDS: PIPERACILL/TAZOBAC IV 3.375 GM in DEXTROSE 5% 100ML 100 ML IV SCH (09:43)
--- NOTE | 2016-12-02 10:40 | Clinical Documentation Query ---
CLINICAL DOCUMENTATION QUERY Dr. MOYA, In your clinical opinion is this patient being managed for: ( ) Sepsis, POA ( ) Sepsis, not POA ( ) Other explanation of clinical findings (Please Explain) ( ) Unable to determine (Please Define) ( ) Need to Discuss (x ) Not Agree-blood cx neg x4 The medical record reflects the following clinical findings, treatment, and risk factors. Clinical Indicators:81 yo female presenting with diabetic foot ulcer. WBC 18.26, Cr 3.10, glucose 376. MRI foot showed findings concerning for osteomyelitis. 3 days following admission, pt developed PM/nighttime fevers with max of 39.4. Blood cultures were repeated. Foot wound cultures with acinetobacter baumannii and enterococcus faecalis. Treatment: IV zosyn, WOCN provider and WOCN consult, IV vancomycin, IV fluids, nonexcisional debridement of L foot ulcer. Risk Factors: age, osteomyelitis, nonhealing L foot ulcer, DM Please clarify and document your clinical opinion in the progress notes and discharge summary. Terms such as "probable", "suspected", "likely", "questionable", "possible", or "still to be ruled out" are acceptable. IF IN AGREEMENT, YOU MUST DOCUMENT ABOVE DIAGNOSTIC STATEMENT IN DAILY PROGRESS NOTES AND DISCHARGE SUMMARY. This document is not part of the patient's record. Thank You, Angelina Sewell RN [phone]
[2016-12-02] MEDS ORDERED: CEFTAZIDIME PHARMACY CONSULT IN PROGRESS PRN (10:45)
[2016-12-02] MEDS ORDERED: LEVOFLOXACIN CONSULT ACTIVE PRN (10:45)
[2016-12-02] MEDS: CEFTAZIDIME IV SCH (11:26)
[2016-12-02] MEDS: DEXTROSE 5% IV SCH (11:26)
[2016-12-02] MEDS ORDERED: LEVOFLOXACIN 750MG / D5W IV SCH (12:00)
[2016-12-02 15:14] VITALS: BP 153/69; PULSE 61; TEMP 37.7; O2SAT 95
--- NOTE | 2016-12-02 17:48 | Progress Note ---
Subjective Date of Service: Dec 02, 2016. Subjective Pt evaluation today including: conversation w/ patient, conversation w/ family , conversation w/ inbound sales consultant Pt has pain related to her hip, but foot is improving from CAKE PUNCHER. Improvement in fevers. Pt denies fever, SOB, chest pain, abd pain, n/v/c/d, LE swelling. Problem List Medical Problems: (1) Fall Status: Acute (2) Hyperglycemia Status: Acute (3) Renal failure Status: Acute Review of Systems All Other Systems: Reviewed and Negative Objective Vital Signs Date Time Temp Pulse Resp B/P (MAP) Pulse Ox O2 Delivery O2 Flow Rate FiO2 12/02/16 15:14 37.7 61 16 153/69 (97) 95 Room Air 12/02/16 08:47 37.5 12/02/16 08:00 Room Air 12/02/16 07:18 38.2 61 20 159/68 (98) 95 Room Air 12/02/16 01:11 37.5 12/02/16 00:45 Room Air 12/01/16 23:31 37.8 79 20 161/70 (100) 93 Room Air Physical Exam Eyes: normal inspection, EOMI Comments: General Appearance: WD/WN, no apparent distress Respiratory/Chest: normal breath sounds, no respiratory distress Cardiovascular: regular rate, rhythm, no edema Abdomen: non tender, soft Extremities: non-tender, no pedal edema Neurologic/Psychiatric: alert, normal mood/affect Skin: normal color, warm/dry Laboratory Results Last 24 Hours Test 12/01/16 20:17 12/02/16 07:31 12/02/16 11:30 12/02/16 16:38 Bedside Glucose 167 mg/dl 202 mg/dl 209 mg/dl 264 mg/dl Assessment and Plan 81 F with fall and left knee pain, with no acute fractures but multiple chronic and some non healing fractures seen in hip and pelvis, foot ulcer noted on presentation DM foot infection: leukocytosis improved with antibiotics, however now with fevers blood cx neg on admission, repeat neg on prelim Zosyn + vanco added for fever spikes, sensi reveals 3 different bacteria. Abx discussed with pharmacy and changed to levaquin, amoxicillin, ceftazidine 12/02 Bone scan for ? osteo, spoke with Dr. Johnson who feels that bone scans are less diagnostic than MRI, MRI suggests osteo as well Bedside debridement with Dr. Johnson on 11/28, awaiting further recs Ortho is planning to monitor over the weekend, amputation may be necessary Fevers: As above UA on admission neg, repeat also neg Weakness PT/OT/hospital social worker. Patient would likely benefit from inpatient rehabilitation stay, especially given pelvic fractures pain control. Diabetes mellitus/hyperglycemia-- controlled with Lantus 16 units Accu-Cheks before meals and at bedtime with NovoLog coverage per scale. acute chronic kidney failure stage 3 hold nephrotoxic meds, hydrate Hypertension/renal insufficiency- amlodipine 2.5 mg by mouth daily, atenolol 12.5 mg by mouth daily, and aspirin 81 mg by mouth daily. Hold furosemide 40 mg and losartan Hypercholesterolemia-- atorvastatin 80 mg by mouth daily. Hypothyroidism--levothyroxine sodium 50 g by mouth daily. GERD-- omeprazole 20 mg by mouth daily to pantoprazole 40 mg by mouth daily. Gout--allopurinol 300 mg by mouth daily. PT/OT recs for SNF vs rehab, accepted at either pending insurance auth Spoke with son at bedside and updated. All questions answered.
[2016-12-02 21:00] VITALS: BP 170/72; PULSE 66
[2016-12-02] MEDS: ATORVASTATIN 10 MG TAB PO SCH (21:26)
[2016-12-02] MEDS: AMOXICILLIN 500 MG CAP PO SCH (21:28)
[2016-12-02] MEDS: INSULIN GLARGINE SOLOSTAR 100 UNITS/ML 3 ML PEN SC SCH (22:43)
--- NOTE | 2016-12-02 23:09 | ORTHOPEDIC CONSULTATION ---
DATE OF CONSULTATION: 12/02/2016 CHIEF COMPLAINT: Left foot nonhealing diabetic wound. HISTORY OF PRESENT ILLNESS: The patient is an 81-year-old female, who presented to the Emergency Department after a fall. She has a history of diabetes mellitus and nonhealing ulcer to the left first metatarsal. She was treated with bedside wound debridement by Dr. Johnson. An MRI subsequently had been ordered; this demonstrated edema in the residual first metatarsal, concerning for possible osteomyelitis. She states she has minimal sensation in the foot. She states that the appearance of the foot is much better than it was prior to her admission. The erythema and swelling has significantly improved. She denies fevers, chills or sweats. PAST MEDICAL HISTORY: Diabetes, hyperlipidemia, hypertension, kidney stone formation, renal insufficiency and anxiety. PAST SURGICAL HISTORY: Cholecystectomy, lobectomy, bilateral total knee arthroplasty, ORIF of intertrochanteric fracture with left IM nail and appendectomy. SOCIAL HISTORY: Smoker. Lives alone. ALLERGIES: TO QUINOLONES, ATORVASTATIN, EZETIMIBE AND SIMVASTATIN. MEDICATIONS: Reviewed from the medical chart. REVIEW OF SYSTEMS: As above. PHYSICAL EXAMINATION: VITAL SIGNS: She is afebrile. Vital signs are stable. GENERAL APPEARANCE: Alert and oriented x3, in no acute distress. Mood and affect normal. She is pleasant and cooperative with examination. HEENT: Atraumatic. CHEST: Clear. CARDIOVASCULAR: Regular rate and rhythm. ABDOMEN: Soft. EXTREMITIES: Left lower extremity; there is a nonhealing ulcer over the plantar aspect of the left foot; measures about 2 cm x 2 cm. There is some mild drainage on to the bandage. No surrounding erythema. No purulence is appreciated. She is status post amputation of the first, second and third toes. IMAGING: X-rays demonstrate post-surgical change. No gross abnormalities were seen on plain film. MRI demonstrates increased signal in the residual first metatarsal, bringing concern for possible osteomyelitis of the residual first metatarsal shaft. ASSESSMENT: Left foot nonhealing diabetic wound, possible osteomyelitis residual first metatarsal. PLAN: Currently, there is no significant active erythema. No fluctuance. No fluid collection. For now, I would continue with local wound care and then discuss the case with our foot and ankle partner for consideration of revision amputation of the residual first metatarsal if he feels that is warranted, but the wound appears to be stable currently.
[2016-12-02 23:22] VITALS: BP 187/72; PULSE 74; TEMP 38.2; O2SAT 94
[2016-12-03 00:20] VITALS: BP 159/65; PULSE 70; TEMP 37.3
[2016-12-03] MEDS: CHECK CLONIDINE PATCH PLACEMENT SCH ×4 (00:25→23:28)
[2016-12-03] MEDS: SODIUM CHLORIDE 0.9% 1000ML 1,000 ML IV SCH ×3 (04:03→23:28)
[2016-12-03] MEDS: ACETAMINOPHEN 325 MG TAB PO PRN ×2 (04:26→23:46)
[2016-12-03] MEDS: LEVOTHYROXINE 50 MCG TAB PO SCH (06:06)
[2016-12-03 06:36] LABS: CREATININE 2.9 mg/dl (0.60-1.20)
[2016-12-03 07:34] VITALS: BP 154/58; PULSE 66; TEMP 36.7; O2SAT 98
[2016-12-03] MEDS: ALLOPURINOL 300 MG TAB PO SCH (08:12)
[2016-12-03] MEDS: MULTIVITAMIN TAB PO SCH (08:12)
[2016-12-03] MEDS: EUCERIN CR 120 GM JAR EXT SCH ×2 (08:12→20:26)
[2016-12-03] MEDS: AMOXICILLIN 500 MG CAP PO SCH ×2 (08:12→20:29)
[2016-12-03] MEDS: CHOLECALCIFEROL 1000 INTER.UNIT TAB PO SCH ×2 (08:12→20:30)
[2016-12-03] MEDS: CLOPIDOGREL BISULFATE 75 MG TAB PO SCH (08:12)
[2016-12-03] MEDS: AMLODIPINE BESYLATE 5 MG TAB PO SCH (08:12)
[2016-12-03] MEDS: CARVEDILOL 12.5 MG TAB PO SCH ×2 (08:13→20:27)
[2016-12-03] MEDS: FUROSEMIDE 40 MG TAB PO SCH (08:13)
[2016-12-03] MEDS: SACCHAROMYCES BOUL (FLORASTOR) 250 MG CAP PO SCH (08:13)
[2016-12-03] MEDS: ASPIRIN 81 MG ECTAB PO SCH (08:13)
[2016-12-03] MEDS: LACTOBACILLUS ACIDOPHILUS (FLORANEX) TAB PO SCH ×3 (08:13→17:36)
[2016-12-03] MEDS: FERROUS GLUCONATE 324 MG TAB PO SCH ×2 (08:13→20:28)
[2016-12-03] MEDS: CALCIUM 600MG + VIT D 400 IU TAB PO SCH (08:14)
[2016-12-03] MEDS: INSULIN ASPART 100 UNITS/ML 3 ML PEN SC SCH ×4 (09:29→21:00)
--- NOTE | 2016-12-03 10:09 | Progress Note ---
Orthopedic SOAP Note Subjective Date of Service: Dec 03, 2016. Additional Notes: comfortable at rest Problem List Medical Problems: (1) Fall Status: Acute (2) Hyperglycemia Status: Acute (3) Renal failure Status: Acute Objective wound p;lalo left foot ,prior amputation medial foot great toe,purulent drainage mild,no erythema Date Time Temp Pulse Resp B/P (MAP) Pulse Ox O2 Delivery O2 Flow Rate FiO2 12/03/16 07:34 36.7 66 18 154/58 (90) 98 Room Air 12/03/16 00:20 37.3 70 159/65 (96) 12/02/16 23:59 Room Air 12/02/16 23:22 38.2 74 20 187/72 (110) 94 Room Air 12/02/16 21:00 66 170/72 (104) 12/02/16 20:00 Room Air 12/02/16 16:00 Room Air 12/02/16 15:14 37.7 61 16 153/69 (97) 95 Room Air Assessment osteomyelitis and nonhealing wound Plan IV antibiotics and wound care , definitive rx would be amputation proximal to area of osteomyelitis.would consult with Dr Renae if medical management and wound care not successful.will sign off for now
[2016-12-03] MEDS: DEXTROSE 5% IV SCH (12:33)
[2016-12-03] MEDS: CEFTAZIDIME IV SCH (12:33)
[2016-12-03 12:55] VITALS: TEMP 36.9
[2016-12-03 15:22] VITALS: BP 144/49; PULSE 65; TEMP 37.3; O2SAT 96
--- NOTE | 2016-12-03 16:00 | Progress Note ---
Subjective Date of Service: Dec 03, 2016. Subjective Pt evaluation today including: conversation w/ patient, physical exam, chart review, lab review, review of studies, review of inpatient medication list Pain: no pain repotred PO Intake: goog Voiding: prieto catheter in place Pt is seen and examined by me. Pt has pain related to her hip, but foot is improving from [employer]. No fever since yesterday. Pt denies fever, SOB, chest pain , abd pain, n/v/c/d, LE swelling Problem List Medical Problems: (1) Fall Status: Acute (2) Hyperglycemia Status: Acute (3) Renal failure Status: Acute Review of Systems All Other Systems: Reviewed and Negative Medications Medications (Trade) Dose Ordered Sig/Sandra Route Start Time Stop Time Status Last Admin Dose Admin Amoxicillin (Amoxil Cap) 500 mg Q12 PO 12/02/16 21:00 12/12/16 20:59 12/03/16 08:12 500 MG Saccharomyces Boulardii (Florastor Cap) 250 mg DAILY PO 12/03/16 08:00 01/02/17 07:59 12/03/16 08:13 250 MG Lactobacillus Acidophilus (Floranex Tab) 4 tab TIDM PO 12/03/16 08:00 01/02/17 07:59 12/03/16 12:33 4 TAB Objective Vital Signs Date Time Temp Pulse Resp B/P (MAP) Pulse Ox O2 Delivery O2 Flow Rate FiO2 12/03/16 15:22 37.3 65 20 144/49 (80) 96 Room Air 12/03/16 12:55 36.9 12/03/16 08:45 Room Air 12/03/16 07:34 36.7 66 18 154/58 (90) 98 Room Air 12/03/16 00:20 37.3 70 159/65 (96) 12/02/16 23:59 Room Air 12/02/16 23:22 38.2 74 20 187/72 (110) 94 Room Air 12/02/16 21:00 66 170/72 (104) 12/02/16 20:00 Room Air 12/02/16 16:00 Room Air Physical Exam Comments: General Appearance: WD/WN, no apparent distress Respiratory/Chest: normal breath sounds, no respiratory distress Cardiovascular: regular rate, rhythm, no edema Abdomen: non tender, soft Extremities: non-tender, no pedal edema Neurologic/Psychiatric: alert, normal mood/affect Skin: normal color, warm/dry Laboratory Results Last 24 Hours Test 12/02/16 16:38 12/02/16 20:18 12/03/16 05:12 12/03/16 08:02 Bedside Glucose 264 mg/dl 183 mg/dl 158 mg/dl Creatinine 2.90 mg/dl Est Creatinine Clear Calc Drug Dose 13.8 ml/min Estimated GFR () 17.0 Estimated GFR (Non- 14.7 Test 12/03/16 11:28 Bedside Glucose 183 mg/dl Assessment and Plan 81 F with fall and left knee pain, with no acute fractures but multiple chronic and some non healing fractures seen in hip and pelvis, foot ulcer noted on presentation DM foot infection: leukocytosis improved with antibiotics, no fever reported since yesterday. blood cx neg on admission, repeat neg on prelim Zosyn + vanco added for fever spikes, sensi reveals 3 different bacteria. Abx discussed with pharmacy and changed to levaquin, amoxicillin, ceftazidine 12/02 Bone scan for ? osteo, spoke with Dr. Johnson who feels that bone scans are less diagnostic than MRI, MRI suggests osteo as well Bedside debridement with Dr. Johnson on 11/28, awaiting further recs Ortho: IV antibiotics and wound care , definitive rx would be amputation proximal to area of osteomyelitis, if medical management and wound care not successful. Weakness PT/OT/social work msw: Patient would likely benefit from inpatient rehabilitation stay, especially given pelvic fractures pain control. Diabetes mellitus/hyperglycemia: Controlled with Lantus 16 units Accu-Cheks before meals and at bedtime with NovoLog coverage per scale. Acute chronic kidney failure stage 3: Hold nephrotoxic meds, hydrate Hypertension/renal insufficiency: Amlodipine 2.5 mg by mouth daily, atenolol 12.5 mg by mouth daily, and aspirin 81 mg by mouth daily. Hold furosemide 40 mg and losartan Hypercholesterolemia: Atorvastatin 80 mg by mouth daily. Hypothyroidism: Levothyroxine sodium 50 g by mouth daily. GERD: Omeprazole 20 mg by mouth daily to pantoprazole 40 mg by mouth daily. Gout: Allopurinol 300 mg by mouth daily. PT/OT recs for SNF vs rehab, accepted at either pending insurance auth Continued [facility] stay due to: multiple IV medications needed Discharge planning: rehab hospital
[2016-12-03] MEDS: ATORVASTATIN 10 MG TAB PO SCH (20:27)
[2016-12-03 20:34] VITALS: BP 170/66; PULSE 67; O2SAT 95
[2016-12-03] MEDS: INSULIN GLARGINE SOLOSTAR 100 UNITS/ML 3 ML PEN SC SCH (21:31)
[2016-12-04 00:03] VITALS: BP 163/73; PULSE 68; TEMP 37.8; O2SAT 94
[2016-12-04] MEDS: LEVOTHYROXINE 50 MCG TAB PO SCH (06:03)
[2016-12-04 07:04] VITALS: BP 179/92; PULSE 61; TEMP 37.2; O2SAT 96
[2016-12-04] MEDS: EUCERIN CR 120 GM JAR EXT SCH ×2 (07:33→20:37)
[2016-12-04] MEDS: CHECK CLONIDINE PATCH PLACEMENT SCH ×3 (07:34→23:38)
[2016-12-04] MEDS: FERROUS GLUCONATE 324 MG TAB PO SCH ×2 (07:34→20:39)
[2016-12-04] MEDS: LACTOBACILLUS ACIDOPHILUS (FLORANEX) TAB PO SCH ×3 (07:34→16:45)
[2016-12-04] MEDS: CARVEDILOL 12.5 MG TAB PO SCH ×2 (07:35→20:30)
[2016-12-04] MEDS: AMOXICILLIN 500 MG CAP PO SCH ×2 (07:35→20:31)
[2016-12-04] MEDS: CALCIUM 600MG + VIT D 400 IU TAB PO SCH (07:35)
[2016-12-04] MEDS: SACCHAROMYCES BOUL (FLORASTOR) 250 MG CAP PO SCH (07:35)
[2016-12-04] MEDS: MULTIVITAMIN TAB PO SCH (07:35)
[2016-12-04] MEDS: CLOPIDOGREL BISULFATE 75 MG TAB PO SCH (07:35)
[2016-12-04] MEDS: CHOLECALCIFEROL 1000 INTER.UNIT TAB PO SCH ×2 (07:35→20:32)
[2016-12-04] MEDS: ASPIRIN 81 MG ECTAB PO SCH (07:36)
[2016-12-04] MEDS: AMLODIPINE BESYLATE 5 MG TAB PO SCH (07:36)
[2016-12-04] MEDS: ALLOPURINOL 300 MG TAB PO SCH (07:36)
[2016-12-04] MEDS: FUROSEMIDE 40 MG TAB PO SCH (07:36)
[2016-12-04] MEDS: METRONIDAZOLE 500 MG TAB PO SCH ×3 (07:37→20:30)
[2016-12-04] MEDS: SODIUM CHLORIDE 0.9% 1000ML 1,000 ML IV SCH (08:44)
[2016-12-04] MEDS: INSULIN ASPART 100 UNITS/ML 3 ML PEN SC SCH ×4 (08:47→20:43)
[2016-12-04] MEDS ORDERED: NURSING VERBAL MED ORDER ONE ×2 (09:00→13:15)
--- NOTE | 2016-12-04 09:18 | DIAGNOSTIC IMAGING REPORT ---
CHEST ONE VIEW PORTABLE CLINICAL HISTORY: decreased lungs sounds, audible wheezing. COMPARISON STUDY: 11/27/2016 FINDINGS: The heart is enlarged. There is mild central pulmonary vascular congestion. There is no lobar consolidation. There are no pleural effusions.[ There are old left-sided rib fractures. There is a left humeral prosthesis. IMPRESSION: Cardiomegaly and mild central pulmonary vascular congestion. No evidence of lobar consolidation. Electronically signed by: Jose Armando Portillo M.D. 12/04/2016 9:17 AM Dictated Date/Time: 12/04/2016 9:16 AM
[2016-12-04] MEDS: LEVOFLOXACIN 500MG / D5W IV SCH (12:40)
[2016-12-04] MEDS: CEFTAZIDIME IV SCH (12:43)
[2016-12-04] MEDS: DEXTROSE 5% IV SCH (12:43)
--- NOTE | 2016-12-04 13:50 | Progress Note ---
Subjective Date of Service: Dec 04, 2016. Subjective Pt evaluation today including: conversation w/ patient, physical exam, chart review, lab review, review of studies, review of inpatient medication list Pain: no pain reported PO Intake: good Voiding: prieto catheter in place pt is seen and examined by me. Pt denies cp, sob, dizziness, palpitation and LOC. Pt denies fever, chills, rigors and sweats. Pt denies change in appetite and sleep. Patient was having frequent loose stools, stool sent for C-DIFF was positive. Problem List Medical Problems: (1) Fall Status: Acute (2) Hyperglycemia Status: Acute (3) Renal failure Status: Acute Review of Systems Constitutional: No fever, No chills Respiratory: No cough, No sputum, No wheezing, No shortness of breath Cardiac: No chest pain, No orthopnea, No edema, No palpitations Abdomen: + diarrhea, No pain, No nausea, No vomiting Female : No dysuria, No urinary frequency Psychiatric: No depression symptoms Endo: No fatigue Skin: No rash All Other Systems: Reviewed and Negative Medications Medications (Trade) Dose Ordered Sig/Sandra Route Start Time Stop Time Status Last Admin Dose Admin Levofloxacin 500 mg/Prmx 100 ml @ 100 mls/hr Q48H IV 12/04/16 12:00 12/12/16 11:59 12/04/16 12:40 100 MLS/HR Metronidazole (Flagyl Tab) 500 mg TID PO 12/04/16 08:00 12/14/16 07:59 12/04/16 12:40 500 MG Objective Vital Signs Date Time Temp Pulse Resp B/P (MAP) Pulse Ox O2 Delivery O2 Flow Rate FiO2 12/04/16 08:00 Room Air 12/04/16 07:04 37.2 61 20 179/92 (121) 96 12/04/16 00:03 37.8 68 20 163/73 (103) 94 Room Air 12/03/16 23:59 Room Air 12/03/16 20:34 67 170/66 (100) 95 12/03/16 20:00 Room Air 12/03/16 16:30 Room Air 12/03/16 15:22 37.3 65 20 144/49 (80) 96 Room Air Physical Exam Comments: Comments: General Appearance: WD/WN, no apparent distress Respiratory/Chest: normal breath sounds, no respiratory distress Cardiovascular: regular rate, rhythm, no edema Abdomen: non tender, soft Extremities: non-tender, no pedal edema Neurologic/Psychiatric: alert, normal mood/affect Skin: normal color, warm/dry Laboratory Results Last 24 Hours Test 12/03/16 16:37 12/03/16 20:15 12/04/16 07:38 12/04/16 11:54 Bedside Glucose 159 mg/dl 115 mg/dl 147 mg/dl 178 mg/dl Assessment and Plan 81 F with fall and left knee pain, with no acute fractures but multiple chronic and some non healing fractures seen in hip and pelvis, foot ulcer noted on presentation DM foot infection: leukocytosis improved with antibiotics, again fever reported 37.8 since yesterday. blood cx neg on admission, repeat neg on prelim Zosyn + vanco added for fever spikes, sensi reveals 3 different bacteria. Abx discussed with pharmacy and changed to levaquin, amoxicillin, ceftazidine 12/02 Discussed with pharmacy to involve ID since pt culture grew ACINETOBACTER BAUMANNII/HAEMOL. Bone scan for ? osteo, spoke with Dr. Johsnon who feels that bone scans are less diagnostic than MRI, MRI suggests osteo as well Bedside debridement with Dr. Johnson on 11/28, awaiting further recs Ortho: IV antibiotics and wound care , definitive rx would be amputation proximal to area of osteomyelitis, if medical management and wound care not successful. C diff toxin positive: - started Flagyl as per pharmacy recommendation Weakness PT/OT/perinatal social worker: Patient would likely benefit from inpatient rehabilitation stay, especially given pelvic fractures pain control. Diabetes mellitus/hyperglycemia: Controlled with Lantus 16 units Accu-Cheks before meals and at bedtime with NovoLog coverage per scale. Acute chronic kidney failure stage 3: Hold nephrotoxic meds, hydrate Hypertension/renal insufficiency: Amlodipine 2.5 mg by mouth daily, atenolol 12.5 mg by mouth daily, and aspirin 81 mg by mouth daily. Hold furosemide 40 mg and losartan Hypercholesterolemia: Atorvastatin 80 mg by mouth daily. Hypothyroidism: Levothyroxine sodium 50 g by mouth daily. GERD: Omeprazole 20 mg by mouth daily to pantoprazole 40 mg by mouth daily. Gout: Allopurinol 300 mg by mouth daily. PT/OT recs for SNF vs rehab, accepted at either pending insurance auth Continued [facility] stay due to: multiple IV medications needed Discharge planning: rehab hospital
[2016-12-04 15:58] VITALS: BP 170/72; PULSE 59; TEMP 37.2; O2SAT 96
[2016-12-04 20:29] VITALS: PULSE 61
[2016-12-04] MEDS: ATORVASTATIN 10 MG TAB PO SCH (20:33)
[2016-12-04] MEDS: INSULIN GLARGINE SOLOSTAR 100 UNITS/ML 3 ML PEN SC SCH (20:42)
--- NOTE | 2016-12-04 21:19 | Medical Consult ---
Consultation Date of Consultation: Dec 04, 2016. Attending Physician: Annika Lee DO Reason for Consultation: Febrile illness despite multiple Abx History of Present Illness 81-year-old female with history of diabetes mellitus, hypertension, and chronic kidney disease who has been followed at the [facility] for ulceration of her left foot. She was now admitted to the hospital after suffering a fall complaining of severe hip pain, with x-rays showing no obvious new fracture. Patient was started empirically on vancomycin and Zosyn, but developed persistent fever, with wound cultures growing Acinetobacter and Enterococcus. Antibiotics have subsequently been changed to levofloxacin and amoxicillin. She has developed diarrhea, and now C difficile PCR is positive. Metronidazole has been added. Patient now afebrile without major complaints. MRI was obtained showing evidence of possible osteomyelitis in the area of ulceration. Past Medical/Surgical History Medical Problems: (1) Fall Status: Acute (2) Hyperglycemia Status: Acute (3) Renal failure Status: Acute Medical Problems: (1) Anxiety (2) Diabetes (3) High cholesterol (4) Hypertension (5) Kidney stones (6) Left Femur fracture (7) Left Femur Fracture (8) Osteopenia (9) Renal insufficiency Surgical Problems: (1) History of cholecystectomy (2) History of lobectomy of lung (3) History of total left knee replacement (4) History of total right knee replacement (5) Hx of appendectomy Family History Patient reports no known family medical history. Social History Smoking Status: Never Smoker Smokeless Tobacco Use: No Alcohol Use: none Drug Use: none Marital Status: Housing Status: lives with family Occupation Status: retired Allergies Coded Allergies: Quinolones (Verified Allergy, Unknown, CIPRO=RASH, 2/11/02) Atorvastatin (Verified Adverse Reaction, Intermediate, MUSCLE ACHES, 2// 10) MUSCLE ACHES Ezetimibe (Verified Adverse Reaction, Intermediate, MUSCLE ACHES, 2/5/10) MUSCLE ACHES Simvastatin (Verified Adverse Reaction, Intermediate, MUSCLES ACHES, 2/5/ 10) MUSCLE ACHES Current Inpatient Medications Current Inpatient Medications Medications (Trade) Dose Ordered Sig/Sandra Route Start Time Stop Time Status Last Admin Dose Admin Acetaminophen (Tylenol Tab) 650 mg Q4H PRN PO 11/27/16 06:30 12/27/16 06:29 12/03/16 23:46 650 MG Ondansetron HCl (Zofran Inj) 4 mg Q6H PRN IV 11/27/16 06:30 12/27/16 06:29 12/03/16 04:11 4 MG Insulin Aspart (novoLOG ASPART) SLIDING SCALE If C... ACHS SC 11/27/16 07:15 12/27/16 07:14 12/04/16 20:43 2 UNITS Glucose (Glucose 40% Gel) UD PRN PO 11/27/16 06:30 12/27/16 06:29 Glucose (Glucose Chew Tab) 1 tabs UD PRN PO 11/27/16 06:30 12/27/16 06:29 Dextrose (Dextrose 50% 50ML Syringe) 50 ml UD PRN IV 11/27/16 06:30 12/27/16 06:29 Glucagon (Glucagon Inj) 1 mg UD PRN SQ 11/27/16 06:30 12/27/16 06:29 Allopurinol (Zyloprim Tab) 300 mg DAILY PO 11/27/16 09:00 12/27/16 08:59 12/04/16 07:36 300 MG Amlodipine Besylate (Norvasc Tab) 5 mg DAILY PO 11/27/16 09:00 12/27/16 08:59 12/04/16 07:36 5 MG Aspirin (Ecotrin Tab) 81 mg DAILY PO 11/27/16 09:00 12/27/16 08:59 12/04/16 07:36 81 MG Atorvastatin Calcium (Lipitor Tab) 10 mg QPM PO 11/27/16 21:00 12/27/16 20:59 12/04/16 20:33 10 MG Carvedilol (Coreg Tab) 37.5 mg BID PO 11/27/16 09:00 12/27/16 08:59 12/04/16 20:30 37.5 MG Cholecalciferol (Vitamin D Tab) 2,000 inter.unit BID PO 11/27/16 09:00 12/27/16 08:59 12/04/16 20:32 2,000 INTER.UNIT Clonidine HCl (Cmfircaj-Ngb-3 0.1mg/24hr Patch) 1 patch Q7D TD 12/01/16 07:00 12/31/16 06:59 12/01/16 07:44 1 PATCH Clopidogrel Bisulfate (plAVix TAB) 75 mg DAILY PO 11/27/16 09:00 12/27/16 08:59 12/04/16 07:35 75 MG Ferrous Gluconate (Ferrous Gluconate Tab) 324 mg BID PO 11/27/16 09:00 12/27/16 08:59 12/04/16 20:39 324 MG Furosemide (Lasix Tab) 40 mg DAILY PO 11/27/16 09:00 12/27/16 08:59 12/04/16 07:36 40 MG Insulin Glargine (Lantus Solostar Pen) 16 unit QPM SC 11/27/16 21:00 12/27/16 20:59 12/04/16 20:42 16 UNIT Levothyroxine Sodium (Synthroid Tab) 50 mcg DAILYBB PO 11/27/16 07:30 12/27/16 07:29 12/04/16 06:03 50 MCG Multivitamins (Multivitamin Tab) 1 tab DAILY PO 11/27/16 09:00 12/27/16 08:59 12/04/16 07:35 1 TAB Calcium/Vitamin D (Caltrate Plus Tab) 1 tab DAILY PO 11/27/16 09:00 12/27/16 08:59 12/04/16 07:35 1 TAB Miscellaneous (Remove Clonidine Patch) 1 ea Q7D N/A 12/01/16 08:00 12/31/16 07:59 12/01/16 07:44 1 EA Miscellaneous Information (Check Clonidine Patch Placement) 1 ea QS N/A 11/27/16 08:00 12/27/16 07:59 12/04/16 16:05 1 EA Multi-Ingredient Ointment (Eucerin Unscented Cr) 1 appln BID EXT 11/27/16 21:00 12/27/16 20:59 12/04/16 20:37 1 APPLN Ceftazidime 2000 mg/Dextrose 60 ml @ 120 mls/hr Q24H IV 12/02/16 11:00 12/12/16 10:59 12/04/16 12:43 120 MLS/HR Levofloxacin (Consult) 1 ea UD PRN N/A 12/02/16 10:45 01/01/17 10:44 Miscellaneous Information 1 ea UD PRN N/A 12/02/16 10:45 01/01/17 10:44 Levofloxacin 500 mg/Prmx 100 ml @ 100 mls/hr Q48H IV 12/04/16 12:00 12/12/16 11:59 12/04/16 12:40 100 MLS/HR Amoxicillin (Amoxil Cap) 500 mg Q12 PO 12/02/16 21:00 12/12/16 20:59 12/04/16 20:31 500 MG Saccharomyces Boulardii (Florastor Cap) 250 mg DAILY PO 12/03/16 08:00 01/02/17 07:59 12/04/16 07:35 250 MG Lactobacillus Acidophilus (Floranex Tab) 4 tab TIDM PO 12/03/16 08:00 01/02/17 07:59 12/04/16 16:45 4 TAB Metronidazole (Flagyl Tab) 500 mg TID PO 12/04/16 08:00 12/14/16 07:59 12/04/16 20:30 500 MG Review of Systems Constitutional: + fever, + chills, + fatigue Eyes: No problem reported ENT: No problem reported Respiratory: No problem reported Cardiovascular: No problem reported Abdomen: + diarrhea Musculoskeletal: + joint pain Genitourinary - Female: No problem reported Neurologic: No problem reported Psychiatric: No problem reported Endocrine: No problem reported Hematologic / Lymphatic: No problem reported Integumentary: + new/changing skin lesions Allergic / Immunologic: No problem reported Physical Exam Date Time Temp Pulse Resp B/P (MAP) Pulse Ox O2 Delivery O2 Flow Rate FiO2 12/04/16 20:29 61 12/04/16 16:00 Room Air 12/04/16 15:58 37.2 59 16 170/72 (104) 96 Room Air 12/04/16 08:00 Room Air 12/04/16 07:04 37.2 61 20 179/92 (121) 96 12/04/16 00:03 37.8 68 20 163/73 (103) 94 Room Air 12/03/16 23:59 Room Air General Appearance: WD/WN, no apparent distress Head: normocephalic, atraumatic Eyes: normal inspection, EOMI, sclerae normal ENT: normal ENT inspection, pharynx normal Neck: supple, no adenopathy, thyroid normal, trachea midline Respiratory/Chest: chest non-tender, lungs clear, normal breath sounds, no respiratory distress Cardiovascular: regular rate, rhythm, no gallop, no murmur Abdomen/GI: normal bowel sounds, non tender, soft, no organomegaly Back: normal inspection, no CVA tenderness Extremities/Musculoskelatal: no calf tenderness, non-tender Neurologic/Psych: alert, oriented x 3 Skin: normal color, no rash, + pertinent finding (Left foot plantar ulcer without surrounding erythema or purulence) Laboratory Results Date/Time Source Procedure Growth Status 12/04/16 00:00 Stool C.difficile Toxin B Gene (PCR) - Final Positive for C. difficile toxin B gene Complete Reported Home Medications Medications Dose Route/Sig Max Daily Dose Days Date Category Dose Instructions Vitamin D3 (Cholecalciferol) 1,000 Unit Tab 2,000 Unit PO BID 90 11/27/16 Reported Novolog Flexpen (Insulin Aspart) 100 Units/Ml Inj 6 Units SQ WM 11/27/16 Reported Multivitamin (Multivitamins) Tab 1 Tab PO DAILY 11/27/16 Reported Levothyroxine Sodium 50 Mcg Tab 1 Tab PO DAILY 90 11/27/16 Reported Lantus Solostar (Insulin Glargine) 100 Unit/Ml Inj 16 Units SC QPM 11/27/16 Reported Lasix (Furosemide) 40 Mg Tab 40 Mg PO DAILY 11/27/16 Reported Ferrous Gluconate 324 Mg Tab 324 Mg PO BID 11/27/16 Reported Catapres-Tts (Clonidine Hcl) 0.1 Mg/24 Hr Dis 1 Patch TD WK 11/27/16 Reported Coreg (Carvedilol) 25 Mg Tab 25 Mg PO BID 11/27/16 Reported Coreg (Carvedilol) 12.5 Mg Tab 12.5 Mg PO BIDM 11/27/16 Reported Calcium 600 with Vitamin 600-400 mg-Unit (Calcium Carbonate-Cholecalcife) 1 Tab Tab 1 Tab PO DAILY 11/27/16 Reported Atorvastatin Calcium (Atorvastatin) 10 Mg Tab 10 Mg PO QPM 11/27/16 Reported TAKE WITH SUPPER Aspirin Low Dose (Aspirin) 81 Mg Tab 1 Tab PO DAILY 11/27/16 Reported Norvasc (Amlodipine Besylate) 5 Mg Tab 5 Mg PO DAILY 11/27/16 Reported Zyloprim (Allopurinol) 300 Mg Tab 300 Mg PO DAILY 11/27/16 Reported Plavix (Clopidogrel Bisulfate) 75 Mg Tab 75 Mg PO DAILY 11/27/16 Reported Last 24 Hours Test 12/04/16 07:38 12/04/16 11:54 12/04/16 16:34 12/04/16 20:16 Bedside Glucose 147 mg/dl 178 mg/dl 174 mg/dl 181 mg/dl Patient Name: JESSENIA MEIER Unit Number: [id number] Dictated: 12/02/16813 Transcribed: 12/02/16912 Printed Date/Time: [~ rep prt dt]/[~ rep prt tm] [~ rep ct labl] - [~ rep ct ivnm] [facility] [place] [address] Dictated: 12/02/16813 Transcribed: 12/02/16912 Printed Date/Time: [~ rep prt dt]/[~ rep prt tm] [~ rep ct labl] - [~ rep ct ivnm] MRI OF THE LEFT FOREFOOT WITHOUT IV CONTRAST CLINICAL HISTORY: Left foot infection. Clinical concern for osteomyelitis. Abnormal bone scan. COMPARISON STUDY: Radiographs of the left foot dated 11/28/2016. Nuclear bone scan of the left foot dated 11/28/2016. TECHNIQUE: MRI of the left forefoot is performed utilizing various T1 and T2-weighted sequences in the axial, sagittal, and coronal planes. IV contrast was not administered for this examination. 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 There is significant marrow edema identified within the remaining shaft of the first metatarsal, with drop in signal on T1-weighted sequence and increased signal on the STIR sequence. There is cortical destruction at the resection margin and along the plantar aspect of the remaining first metatarsal. These findings are highly concerning for osteomyelitis. No additional foci of similar-appearing marrow change are identified throughout the left forefoot. Foci of arthritic change and edema are seen at the fourth and fifth tarsometatarsal joints. Mild degenerative change is also seen at the fourth and fifth metatarsophalangeal joints. There is significant soft tissue edema identified in the forefoot, greatest medially around the first metatarsal. No organized fluid collection is clearly seen to indicate abscess. There is nonspecific myositis in the regional musculature. The visualized plantar fascia is normal. Foci of susceptibility artifact within the medial soft tissues are likely on a postoperative basis. IMPRESSION: 1. 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 2. Findings are consistent with cellulitis in the forefoot, greatest medially. 3. Findings are highly concerning for osteomyelitis involving the remaining first metatarsal shaft. Dictated: 12/02/2016 8:14 AM Transcribed: 12/02/2016 9:13 AM GLENN_Nora Electronically signed by: Doe Caceres M.D. 12/02/2016 9:22 AM Dictated Date/Time: 12/02/2016 8:14 AM The status of this report is Signed. Draft = Not yet reviewed or approved by Radiologist. Signed = Reviewed and approved by Radiologist. <AttendingPhy>Annika Lee DO</AttendingPhy> <FamilyPhy>Doe Mercedes M.D.</FamilyPhy> <PrimaryPhy>Doe Mercedes M.D.</PrimaryPhy> <UnitNumber> [id number]</UnitNumber> <VisitNumber>[id number]</VisitNumber> <PatientName> RENEAJESSENIA</PatientName> <DateOfBirth>1935</DateOfBirth> <Location>[facility] </Location> <ServiceDate>11/27/16</ServiceDate> <MNE>ESINDI</MNE> <OrderingPhy> Annika Lee DO</OrderingPhy> <OrderingPhyMNE>f rep ord dr gilmore</ OrderingPhyMNE> <DictatingPhyMNE>f rep dict dr gilmore</DictatingPhyMNE> <CCListMNE> f rep ct mne</CCListMNE> <AdmittingPhyMNE>f pt admit dr gilmore</AdmittingPhyMNE> < AttendingPhyMNE>f pt attend dr gilmore</AttendingPhyMNE> <ConsultingPhyMNE>f pt consult dr gilmore</ConsultingPhyMNE> <FamilyPhyMNE>f pt fam dr gilmore</FamilyPhyMNE> <OtherPhyMNE>f pt other dr gilmore</OtherPhyMNE> < PrimaryPhyMNE>f pt prim care dr gilmore</PrimaryPhyMNE> <ReferringPhyMNE>f pt referring dr gilmore</ReferringPhyMNE> Assessment & Plan Persistent fever, likely from C. diff colitis in setting of osteomyelitis of foot, with significant risk of recurrent C. diff infection. Continue present Abx pending final culture results,. Would consider prolonged taper of vancomycin therapy given risk of recurrence. will discuss further management of osteomyelitis with wound care and Orthopedics. Will follow.
[2016-12-04] MEDS: ACETAMINOPHEN 325 MG TAB PO PRN (22:32)
[2016-12-04 23:45] VITALS: BP 179/69; PULSE 59; TEMP 37.1; O2SAT 97
[2016-12-05] MEDS ORDERED: TRAZODONE HCL 50 MG TAB PO ONE (03:30)
[2016-12-05] MEDS: LEVOTHYROXINE 50 MCG TAB PO SCH (05:53)
[2016-12-05 07:13] VITALS: BP 202/97; PULSE 64; TEMP 36.8; O2SAT 99
[2016-12-05 07:49] LABS: CREATININE 2.7 mg/dl (0.60-1.20)
[2016-12-05 09:15] VITALS: O2SAT 99
[2016-12-05] MEDS: AMLODIPINE BESYLATE 5 MG TAB PO SCH (09:22)
[2016-12-05] MEDS: FERROUS GLUCONATE 324 MG TAB PO SCH ×2 (09:22→19:52)
[2016-12-05] MEDS: METRONIDAZOLE 500 MG TAB PO SCH (09:22)
[2016-12-05] MEDS: ASPIRIN 81 MG ECTAB PO SCH (09:22)
[2016-12-05] MEDS: AMOXICILLIN 500 MG CAP PO SCH ×2 (09:23→19:51)
[2016-12-05] MEDS: CARVEDILOL 12.5 MG TAB PO SCH ×2 (09:23→19:51)
[2016-12-05] MEDS: CHECK CLONIDINE PATCH PLACEMENT SCH ×3 (09:24→23:05)
[2016-12-05] MEDS: EUCERIN CR 120 GM JAR EXT SCH ×2 (09:24→20:00)
[2016-12-05] MEDS: CALCIUM 600MG + VIT D 400 IU TAB PO SCH (09:24)
[2016-12-05] MEDS: CHOLECALCIFEROL 1000 INTER.UNIT TAB PO SCH ×2 (09:24→19:51)
[2016-12-05] MEDS: LACTOBACILLUS ACIDOPHILUS (FLORANEX) TAB PO SCH ×3 (09:24→17:28)
[2016-12-05] MEDS: ALLOPURINOL 300 MG TAB PO SCH (09:24)
[2016-12-05] MEDS: SACCHAROMYCES BOUL (FLORASTOR) 250 MG CAP PO SCH (09:24)
[2016-12-05] MEDS: FUROSEMIDE 40 MG TAB PO SCH (09:25)
[2016-12-05] MEDS: MULTIVITAMIN TAB PO SCH (09:25)
[2016-12-05] MEDS: INSULIN ASPART 100 UNITS/ML 3 ML PEN SC SCH ×4 (09:35→21:31)
[2016-12-05] MEDS: CLOPIDOGREL BISULFATE 75 MG TAB PO SCH (09:36)
[2016-12-05 10:35] VITALS: BP 184/66
[2016-12-05] MEDS: DEXTROSE 5% IV SCH (11:45)
[2016-12-05] MEDS: CEFTAZIDIME IV SCH (11:45)
[2016-12-05] MEDS: VANCOMYCIN HCL 125 MG/2.5ML SOLN PO SCH ×3 (11:46→20:08)
[2016-12-05] MEDS: RASPBERRY SYRUP 5 ML UDP PO SCH ×3 (11:46→20:05)
[2016-12-05 14:55] VITALS: BP 172/60; PULSE 69; TEMP 37; O2SAT 96
--- NOTE | 2016-12-05 16:23 | Progress Note ---
Subjective Date of Service: Dec 05, 2016. Subjective Pt evaluation today including: conversation w/ patient, conversation w/ family (son over the phone), physical exam, lab review, review of inpatient medication list Pain: pain in foot, moderate PO Intake: adequate Voiding: no voiding problems patient feeling well, not much of an appetite she was confused over night, seeing things, acting scared according to RN this AM she is alert, oriented, no hallucinations or delusions discussed plan with patient's son, he knows plan, trying [place] Problem List Medical Problems: (1) Fall Status: Acute (2) Hyperglycemia Status: Acute (3) Renal failure Status: Acute Review of Systems Constitutional: + weakness, + fatigue Musculoskeletal: + joint pain (foot) Psychiatric: + insomnia (Trazodone did not help, up til 4am) All Other Systems: Reviewed and Negative Medications Current Inpatient Medications Medications (Trade) Dose Ordered Sig/Sandra Route Start Time Stop Time Status Last Admin Dose Admin Acetaminophen (Tylenol Tab) 650 mg Q4H PRN PO 11/27/16 06:30 12/27/16 06:29 12/04/16 22:32 650 MG Ondansetron HCl (Zofran Inj) 4 mg Q6H PRN IV 11/27/16 06:30 12/27/16 06:29 12/03/16 04:11 4 MG Insulin Aspart (novoLOG ASPART) SLIDING SCALE If C... ACHS SC 11/27/16 07:15 12/27/16 07:14 12/05/16 13:12 4 UNITS Glucose (Glucose 40% Gel) UD PRN PO 11/27/16 06:30 12/27/16 06:29 Glucose (Glucose Chew Tab) 1 tabs UD PRN PO 11/27/16 06:30 12/27/16 06:29 Dextrose (Dextrose 50% 50ML Syringe) 50 ml UD PRN IV 11/27/16 06:30 12/27/16 06:29 Glucagon (Glucagon Inj) 1 mg UD PRN SQ 11/27/16 06:30 12/27/16 06:29 Allopurinol (Zyloprim Tab) 300 mg DAILY PO 11/27/16 09:00 12/27/16 08:59 12/05/16 09:24 300 MG Amlodipine Besylate (Norvasc Tab) 5 mg DAILY PO 11/27/16 09:00 12/27/16 08:59 12/05/16 09:22 5 MG Aspirin (Ecotrin Tab) 81 mg DAILY PO 11/27/16 09:00 12/27/16 08:59 12/05/16 09:22 81 MG Atorvastatin Calcium (Lipitor Tab) 10 mg QPM PO 11/27/16 21:00 12/27/16 20:59 12/04/16 20:33 10 MG Carvedilol (Coreg Tab) 37.5 mg BID PO 11/27/16 09:00 12/27/16 08:59 12/05/16 09:23 37.5 MG Cholecalciferol (Vitamin D Tab) 2,000 inter.unit BID PO 11/27/16 09:00 12/27/16 08:59 12/05/16 09:24 2,000 INTER.UNIT Clonidine HCl (Yxqjzjci-Udh-5 0.1mg/24hr Patch) 1 patch Q7D TD 12/01/16 07:00 12/31/16 06:59 12/01/16 07:44 1 PATCH Clopidogrel Bisulfate (plAVix TAB) 75 mg DAILY PO 11/27/16 09:00 12/27/16 08:59 12/05/16 09:36 75 MG Ferrous Gluconate (Ferrous Gluconate Tab) 324 mg BID PO 11/27/16 09:00 12/27/16 08:59 12/05/16 09:22 324 MG Furosemide (Lasix Tab) 40 mg DAILY PO 11/27/16 09:00 12/27/16 08:59 12/05/16 09:25 40 MG Insulin Glargine (Lantus Solostar Pen) 16 unit QPM SC 11/27/16 21:00 12/27/16 20:59 12/04/16 20:42 16 UNIT Levothyroxine Sodium (Synthroid Tab) 50 mcg DAILYBB PO 11/27/16 07:30 12/27/16 07:29 12/05/16 05:53 50 MCG Multivitamins (Multivitamin Tab) 1 tab DAILY PO 11/27/16 09:00 12/27/16 08:59 12/05/16 09:25 1 TAB Calcium/Vitamin D (Caltrate Plus Tab) 1 tab DAILY PO 11/27/16 09:00 12/27/16 08:59 12/05/16 09:24 1 TAB Miscellaneous (Remove Clonidine Patch) 1 ea Q7D N/A 12/01/16 08:00 12/31/16 07:59 12/01/16 07:44 1 EA Miscellaneous Information (Check Clonidine Patch Placement) 1 ea QS N/A 11/27/16 08:00 12/27/16 07:59 12/05/16 09:24 1 EA Multi-Ingredient Ointment (Eucerin Unscented Cr) 1 appln BID EXT 11/27/16 21:00 12/27/16 20:59 12/05/16 09:24 1 APPLN Ceftazidime 2000 mg/Dextrose 60 ml @ 120 mls/hr Q24H IV 12/02/16 11:00 12/12/16 10:59 12/05/16 11:45 120 MLS/HR Levofloxacin (Consult) 1 ea UD PRN N/A 12/02/16 10:45 01/01/17 10:44 Miscellaneous Information 1 ea UD PRN N/A 12/02/16 10:45 01/01/17 10:44 Levofloxacin 500 mg/Prmx 100 ml @ 100 mls/hr Q48H IV 12/04/16 12:00 12/12/16 11:59 12/04/16 12:40 100 MLS/HR Amoxicillin (Amoxil Cap) 500 mg Q12 PO 12/02/16 21:00 12/12/16 20:59 12/05/16 09:23 500 MG Saccharomyces Boulardii (Florastor Cap) 250 mg DAILY PO 12/03/16 08:00 01/02/17 07:59 12/05/16 09:24 250 MG Lactobacillus Acidophilus (Floranex Tab) 4 tab TIDM PO 12/03/16 08:00 01/02/17 07:59 12/05/16 11:47 4 TAB Vancomycin HCl (Vancomycin Oral Soln) 125 mg QID PO 12/05/16 12:00 12/19/16 11:59 12/05/16 11:46 125 MG Raspberry (Raspberry Syrup 5ml Cup) 5 ml QID PO 12/05/16 12:00 12/19/16 11:59 12/05/16 11:46 5 ML Objective Vital Signs Date Time Temp Pulse Resp B/P (MAP) Pulse Ox O2 Delivery O2 Flow Rate FiO2 12/05/16 14:55 37.0 69 18 172/60 (97) 96 Room Air 12/05/16 10:35 184/66 (105) 12/05/16 07:13 36.8 64 20 202/97 (132) 99 Nasal Cannula 2.0 12/05/16 00:00 Room Air 12/04/16 23:45 37.1 59 20 179/69 (105) 97 Room Air 12/04/16 20:29 61 Physical Exam General Appearance: WD/WN, no apparent distress Eyes: normal inspection, EOMI, sclerae normal Respiratory/Chest: chest non-tender, lungs clear, normal breath sounds, no respiratory distress, no accessory muscle use Cardiovascular: regular rate, rhythm, no edema, no gallop, no JVD, no murmur Abdomen: normal bowel sounds, non tender, soft, no organomegaly Extremities: normal range of motion, non-tender, normal inspection, no pedal edema, no calf tenderness Neurologic/Psychiatric: drafter directional survey II-XII nml as tested, alert, normal mood/affect, oriented x 3, + motor weakness (generalized) Skin: normal color, warm/dry, no rash, + pertinent finding (left foot wound dressed, tender) Laboratory Results Last 24 Hours Test 12/04/16 16:34 12/04/16 20:16 12/05/16 06:58 12/05/16 07:42 Bedside Glucose 174 mg/dl 181 mg/dl 123 mg/dl Creatinine 2.70 mg/dl Est Creatinine Clear Calc Drug Dose 14.8 ml/min Estimated GFR () 18.5 Estimated GFR (Non- 16.0 Test 12/05/16 11:42 Bedside Glucose 176 mg/dl Assessment and Plan 81 F with fall and left knee pain, with no acute fractures but multiple chronic and some non healing fractures seen in hip and pelvis, foot ulcer noted on presentation DM foot infection: leukocytosis improving slowly, afebrile 2 separate blood cultures negative, wound cultures growing Acinetobacter, ID consulted MRI suggests osteomyelitis currently on Ceftazidime, Amoxicillin and Levaquin Bedside debridement with Dr. Johnson on 11/28, going to try conservative management to prevent amputation Ortho: IV antibiotics and wound care , definitive rx would be amputation proximal to area of osteomyelitis, if medical management and wound care not successful. C diff toxin positive: - started Flagyl as per pharmacy recommendation, changed to Vancomycin PO 125mg , continue this for prolonged course Weakness PT/OT/renal social worker: Patient would likely benefit from inpatient rehabilitation stay, especially given pelvic fractures pain control. patient prefers [facility] with Ryan Palaciosn as back up Diabetes mellitus/hyperglycemia: Controlled with Lantus 16 units Accu-Cheks before meals and at bedtime with NovoLog coverage per scale. Acute chronic kidney failure stage 3: slowly improving, Cr down to 2.7 from peak of 3.1 a few days ago, hold nephrotoxins Hypertension: Amlodipine 2.5 mg by mouth daily, atenolol 12.5 mg by mouth daily , and aspirin 81 mg by mouth daily. Hold furosemide 40 mg and losartan Hypercholesterolemia: Atorvastatin 80 mg by mouth daily. Hypothyroidism: Levothyroxine sodium 50 g by mouth daily. GERD: Omeprazole 20 mg by mouth daily to pantoprazole 40 mg by mouth daily. Gout: Allopurinol 300 mg by mouth daily. PT/OT recs for SNF vs rehab Continued [facility] stay due to: multiple IV medications needed Discharge planning: rehab hospital
--- NOTE | 2016-12-05 16:34 | Infectious Disease Progress Nt ---
Progress Note Date of Service Dec 05, 2016. Subjective Pt evaluation today including: conversation w/ patient, physical exam, chart review, lab review, review of studies, conversation w/ technical marketing consultant, review of inpatient medication list Apparently was somewhat confused last night, but feeling back to baseline today. Still with significant pain in her foot. Remains afebrile. All Other Systems: Reviewed and Negative Medications Current Inpatient Medications Medications (Trade) Dose Ordered Sig/Sandra Route Start Time Stop Time Status Last Admin Dose Admin Acetaminophen (Tylenol Tab) 650 mg Q4H PRN PO 11/27/16 06:30 12/27/16 06:29 12/04/16 22:32 650 MG Ondansetron HCl (Zofran Inj) 4 mg Q6H PRN IV 11/27/16 06:30 12/27/16 06:29 12/03/16 04:11 4 MG Insulin Aspart (novoLOG ASPART) SLIDING SCALE If C... ACHS SC 11/27/16 07:15 12/27/16 07:14 12/05/16 13:12 4 UNITS Glucose (Glucose 40% Gel) UD PRN PO 11/27/16 06:30 12/27/16 06:29 Glucose (Glucose Chew Tab) 1 tabs UD PRN PO 11/27/16 06:30 12/27/16 06:29 Dextrose (Dextrose 50% 50ML Syringe) 50 ml UD PRN IV 11/27/16 06:30 12/27/16 06:29 Glucagon (Glucagon Inj) 1 mg UD PRN SQ 11/27/16 06:30 12/27/16 06:29 Allopurinol (Zyloprim Tab) 300 mg DAILY PO 11/27/16 09:00 12/27/16 08:59 12/05/16 09:24 300 MG Amlodipine Besylate (Norvasc Tab) 5 mg DAILY PO 11/27/16 09:00 12/27/16 08:59 12/05/16 09:22 5 MG Aspirin (Ecotrin Tab) 81 mg DAILY PO 11/27/16 09:00 12/27/16 08:59 12/05/16 09:22 81 MG Atorvastatin Calcium (Lipitor Tab) 10 mg QPM PO 11/27/16 21:00 12/27/16 20:59 12/04/16 20:33 10 MG Carvedilol (Coreg Tab) 37.5 mg BID PO 11/27/16 09:00 12/27/16 08:59 12/05/16 09:23 37.5 MG Cholecalciferol (Vitamin D Tab) 2,000 inter.unit BID PO 11/27/16 09:00 12/27/16 08:59 12/05/16 09:24 2,000 INTER.UNIT Clonidine HCl (Raiatbba-Gyo-2 0.1mg/24hr Patch) 1 patch Q7D TD 12/01/16 07:00 12/31/16 06:59 12/01/16 07:44 1 PATCH Clopidogrel Bisulfate (plAVix TAB) 75 mg DAILY PO 11/27/16 09:00 12/27/16 08:59 12/05/16 09:36 75 MG Ferrous Gluconate (Ferrous Gluconate Tab) 324 mg BID PO 11/27/16 09:00 12/27/16 08:59 12/05/16 09:22 324 MG Furosemide (Lasix Tab) 40 mg DAILY PO 11/27/16 09:00 12/27/16 08:59 12/05/16 09:25 40 MG Insulin Glargine (Lantus Solostar Pen) 16 unit QPM SC 11/27/16 21:00 12/27/16 20:59 12/04/16 20:42 16 UNIT Levothyroxine Sodium (Synthroid Tab) 50 mcg DAILYBB PO 11/27/16 07:30 12/27/16 07:29 12/05/16 05:53 50 MCG Multivitamins (Multivitamin Tab) 1 tab DAILY PO 11/27/16 09:00 12/27/16 08:59 12/05/16 09:25 1 TAB Calcium/Vitamin D (Caltrate Plus Tab) 1 tab DAILY PO 11/27/16 09:00 12/27/16 08:59 12/05/16 09:24 1 TAB Miscellaneous (Remove Clonidine Patch) 1 ea Q7D N/A 12/01/16 08:00 12/31/16 07:59 12/01/16 07:44 1 EA Miscellaneous Information (Check Clonidine Patch Placement) 1 ea QS N/A 11/27/16 08:00 12/27/16 07:59 12/05/16 09:24 1 EA Multi-Ingredient Ointment (Eucerin Unscented Cr) 1 appln BID EXT 11/27/16 21:00 12/27/16 20:59 12/05/16 09:24 1 APPLN Ceftazidime 2000 mg/Dextrose 60 ml @ 120 mls/hr Q24H IV 12/02/16 11:00 12/12/16 10:59 12/05/16 11:45 120 MLS/HR Levofloxacin (Consult) 1 ea UD PRN N/A 12/02/16 10:45 01/01/17 10:44 Miscellaneous Information 1 ea UD PRN N/A 12/02/16 10:45 01/01/17 10:44 Levofloxacin 500 mg/Prmx 100 ml @ 100 mls/hr Q48H IV 12/04/16 12:00 12/12/16 11:59 12/04/16 12:40 100 MLS/HR Amoxicillin (Amoxil Cap) 500 mg Q12 PO 12/02/16 21:00 12/12/16 20:59 12/05/16 09:23 500 MG Saccharomyces Boulardii (Florastor Cap) 250 mg DAILY PO 12/03/16 08:00 01/02/17 07:59 12/05/16 09:24 250 MG Lactobacillus Acidophilus (Floranex Tab) 4 tab TIDM PO 12/03/16 08:00 01/02/17 07:59 12/05/16 11:47 4 TAB Vancomycin HCl (Vancomycin Oral Soln) 125 mg QID PO 12/05/16 12:00 12/19/16 11:59 12/05/16 11:46 125 MG Raspberry (Raspberry Syrup 5ml Cup) 5 ml QID PO 12/05/16 12:00 12/19/16 11:59 12/05/16 11:46 5 ML Quetiapine Fumarate (seroQUEL TAB) 25 mg HS PO 12/05/16 21:00 01/04/17 20:59 Objective Vital Signs Date Time Temp Pulse Resp B/P (MAP) Pulse Ox O2 Delivery O2 Flow Rate FiO2 12/05/16 14:55 37.0 69 18 172/60 (97) 96 Room Air 12/05/16 10:35 184/66 (105) 12/05/16 09:15 99 Nasal Cannula 2.0 12/05/16 07:13 36.8 64 20 202/97 (132) 99 Nasal Cannula 2.0 12/05/16 00:00 Room Air 12/04/16 23:45 37.1 59 20 179/69 (105) 97 Room Air 12/04/16 20:29 61 Physical Exam General Appearance: WD/WN, no apparent distress Eyes: normal inspection, EOMI, sclerae normal ENT: normal ENT inspection, pharynx normal Neck: supple, no adenopathy, trachea midline Respiratory/Chest: chest non-tender, lungs clear, normal breath sounds, no respiratory distress Cardiovascular: regular rate, rhythm, no gallop, no murmur Abdomen: normal bowel sounds, non tender, soft, no organomegaly Extremities: non-tender, no calf tenderness Neurologic/Psychiatric: alert, oriented x 3 Skin: normal color, no rash, + pertinent finding (Left foot ulcer unchanged) Laboratory Results Last 24 Hours Test 12/04/16 16:34 12/04/16 20:16 12/05/16 06:58 12/05/16 07:42 Bedside Glucose 174 mg/dl 181 mg/dl 123 mg/dl Creatinine 2.70 mg/dl Est Creatinine Clear Calc Drug Dose 14.8 ml/min Estimated GFR () 18.5 Estimated GFR (Non- 16.0 Test 12/05/16 11:42 Bedside Glucose 176 mg/dl Assessment and Plan Patient with osteomyelitis of the left foot with Acinetobacter and Enterococcus , as well as with subsequent development of C difficile colitis. I would continue patient on levofloxacin and amoxicillin, and I have discontinued ceftazidime as the Acinetobacter is sensitive to levofloxacin. Patient should continue on vancomycin, and I would recommend prolonged tapering course given ongoing need for antibiotics. We will continue to follow.
[2016-12-05 17:00] VITALS: O2SAT 96
[2016-12-05] MEDS: QUETIAPINE FUMARATE 25 MG TAB PO SCH (19:51)
[2016-12-05] MEDS: ATORVASTATIN 10 MG TAB PO SCH (19:51)
[2016-12-05] MEDS: ACETAMINOPHEN 325 MG TAB PO PRN (20:08)
[2016-12-05 20:15] VITALS: BP 163/74; PULSE 68
[2016-12-05] MEDS: INSULIN GLARGINE SOLOSTAR 100 UNITS/ML 3 ML PEN SC SCH (21:24)
[2016-12-06] MEDS: LEVOTHYROXINE 50 MCG TAB PO SCH (05:28)
[2016-12-06 07:49] VITALS: BP 182/79; PULSE 64; TEMP 37.8; O2SAT 95
[2016-12-06] MEDS: RASPBERRY SYRUP 5 ML UDP PO SCH ×4 (08:30→21:36)
[2016-12-06] MEDS: VANCOMYCIN HCL 125 MG/2.5ML SOLN PO SCH ×4 (08:30→21:36)
[2016-12-06] MEDS: SACCHAROMYCES BOUL (FLORASTOR) 250 MG CAP PO SCH (08:31)
[2016-12-06] MEDS: ALLOPURINOL 300 MG TAB PO SCH (08:31)
[2016-12-06] MEDS: ASPIRIN 81 MG ECTAB PO SCH (08:31)
[2016-12-06] MEDS: LACTOBACILLUS ACIDOPHILUS (FLORANEX) TAB PO SCH ×3 (08:31→17:52)
[2016-12-06] MEDS: CARVEDILOL 12.5 MG TAB PO SCH ×2 (08:31→21:37)
[2016-12-06] MEDS: CLOPIDOGREL BISULFATE 75 MG TAB PO SCH (08:31)
[2016-12-06] MEDS: AMOXICILLIN 500 MG CAP PO SCH ×2 (08:31→21:38)
[2016-12-06] MEDS: AMLODIPINE BESYLATE 5 MG TAB PO SCH (08:32)
[2016-12-06] MEDS: MULTIVITAMIN TAB PO SCH (08:32)
[2016-12-06] MEDS: FERROUS GLUCONATE 324 MG TAB PO SCH ×2 (08:32→21:36)
[2016-12-06] MEDS: CALCIUM 600MG + VIT D 400 IU TAB PO SCH (08:32)
[2016-12-06] MEDS: CHECK CLONIDINE PATCH PLACEMENT SCH ×3 (08:32→22:54)
[2016-12-06] MEDS: FUROSEMIDE 40 MG TAB PO SCH (08:33)
[2016-12-06] MEDS: CHOLECALCIFEROL 1000 INTER.UNIT TAB PO SCH ×2 (08:33→21:37)
[2016-12-06] MEDS: EUCERIN CR 120 GM JAR EXT SCH ×2 (08:33→21:39)
[2016-12-06] MEDS: INSULIN ASPART 100 UNITS/ML 3 ML PEN SC SCH ×4 (08:38→21:44)
[2016-12-06 11:03] LABS: BASO % 0.4 %; BASO ABS # 0.04 K/uL (0-0.2); EOS % 3.5 %; HEMATOCRIT 25.1 % (37-47); IG% 0.4 %; LYMPH % 8.9 %; LYMPH ABS # 1.01 K/uL (1.2-3.4); MEAN CELL VOLUME 91.6 fL (80-100); MEAN CORPUSCULAR HEMOGLOBIN 29.9 pg (25-34); MEAN CORPUSCULAR HGB CONC 32.7 g/dl (32-36); MEAN PLATELET VOLUME 8.8 fL (7.4-10.4); MONO % 5.4 %; NEUT % 81.4 %; PLATELET COUNT 348 K/uL (130-400); RED BLOOD COUNT 2.74 M/uL (4.2-5.4); WHITE BLOOD COUNT 11.39 K/uL (4.8-10.8)
[2016-12-06 11:30] LABS: BUN/CREATININE RATIO 12.7 (10-20); CREATININE 2.6 mg/dl (0.60-1.20); POTASSIUM 2.9 mmol/L (3.5-5.1)
[2016-12-06 11:42] VITALS: BP 176/76
[2016-12-06] MEDS: LEVOFLOXACIN 500MG / D5W IV SCH (11:53)
[2016-12-06 12:43] LABS: COMPLETE YES
[2016-12-06] MEDS ORDERED: POTASSIUM CHLORIDE 10 MEQ TABCR PO STA (14:18)
--- NOTE | 2016-12-06 15:26 | Progress Note ---
Subjective Date of Service: Dec 06, 2016. Subjective Pt evaluation today including: conversation w/ patient, physical exam, lab review, review of inpatient medication list Pain: pain in foot PO Intake: adequate Voiding: no voiding problems per RN, patient slept much better last night and was oriented this AM when she woke I visited with her later in the morning, she was sleeping again and slightly confused denied severe pain, no shortness of breath I reviewed lab work, K low at 2.9 Problem List Medical Problems: (1) Fall Status: Acute (2) Hyperglycemia Status: Acute (3) Renal failure Status: Acute Review of Systems Constitutional: + weakness, + fatigue Musculoskeletal: + joint pain (foot) Psychiatric: + insomnia (better, slept last night) All Other Systems: Reviewed and Negative Medications Current Inpatient Medications Medications (Trade) Dose Ordered Sig/Sandra Route Start Time Stop Time Status Last Admin Dose Admin Acetaminophen (Tylenol Tab) 650 mg Q4H PRN PO 11/27/16 06:30 12/27/16 06:29 12/05/16 20:08 650 MG Ondansetron HCl (Zofran Inj) 4 mg Q6H PRN IV 11/27/16 06:30 12/27/16 06:29 12/03/16 04:11 4 MG Insulin Aspart (novoLOG ASPART) SLIDING SCALE If C... ACHS SC 11/27/16 07:15 12/27/16 07:14 12/06/16 12:55 5 UNITS Glucose (Glucose 40% Gel) UD PRN PO 11/27/16 06:30 12/27/16 06:29 Glucose (Glucose Chew Tab) 1 tabs UD PRN PO 11/27/16 06:30 12/27/16 06:29 Dextrose (Dextrose 50% 50ML Syringe) 50 ml UD PRN IV 11/27/16 06:30 12/27/16 06:29 Glucagon (Glucagon Inj) 1 mg UD PRN SQ 11/27/16 06:30 12/27/16 06:29 Allopurinol (Zyloprim Tab) 300 mg DAILY PO 11/27/16 09:00 12/27/16 08:59 12/06/16 08:31 300 MG Amlodipine Besylate (Norvasc Tab) 5 mg DAILY PO 11/27/16 09:00 12/27/16 08:59 12/06/16 08:32 5 MG Aspirin (Ecotrin Tab) 81 mg DAILY PO 11/27/16 09:00 12/27/16 08:59 12/06/16 08:31 81 MG Atorvastatin Calcium (Lipitor Tab) 10 mg QPM PO 11/27/16 21:00 12/27/16 20:59 12/05/16 19:51 10 MG Carvedilol (Coreg Tab) 37.5 mg BID PO 11/27/16 09:00 12/27/16 08:59 12/06/16 08:31 37.5 MG Cholecalciferol (Vitamin D Tab) 2,000 inter.unit BID PO 11/27/16 09:00 12/27/16 08:59 12/06/16 08:33 2,000 INTER.UNIT Clonidine HCl (Cpwzlvgn-Mqo-7 0.1mg/24hr Patch) 1 patch Q7D TD 12/01/16 07:00 12/31/16 06:59 12/01/16 07:44 1 PATCH Clopidogrel Bisulfate (plAVix TAB) 75 mg DAILY PO 11/27/16 09:00 12/27/16 08:59 12/06/16 08:31 75 MG Ferrous Gluconate (Ferrous Gluconate Tab) 324 mg BID PO 11/27/16 09:00 12/27/16 08:59 12/06/16 08:32 324 MG Furosemide (Lasix Tab) 40 mg DAILY PO 11/27/16 09:00 12/27/16 08:59 12/06/16 08:33 40 MG Insulin Glargine (Lantus Solostar Pen) 16 unit QPM SC 11/27/16 21:00 12/27/16 20:59 12/05/16 21:24 16 UNIT Levothyroxine Sodium (Synthroid Tab) 50 mcg DAILYBB PO 11/27/16 07:30 12/27/16 07:29 12/06/16 05:28 50 MCG Multivitamins (Multivitamin Tab) 1 tab DAILY PO 11/27/16 09:00 12/27/16 08:59 12/06/16 08:32 1 TAB Calcium/Vitamin D (Caltrate Plus Tab) 1 tab DAILY PO 11/27/16 09:00 12/27/16 08:59 12/06/16 08:32 1 TAB Miscellaneous (Remove Clonidine Patch) 1 ea Q7D N/A 12/01/16 08:00 12/31/16 07:59 12/01/16 07:44 1 EA Miscellaneous Information (Check Clonidine Patch Placement) 1 ea QS N/A 11/27/16 08:00 12/27/16 07:59 12/06/16 15:02 1 EA Multi-Ingredient Ointment (Eucerin Unscented Cr) 1 appln BID EXT 11/27/16 21:00 12/27/16 20:59 12/06/16 08:33 1 APPLN Levofloxacin (Consult) 1 ea UD PRN N/A 12/02/16 10:45 01/01/17 10:44 Levofloxacin 500 mg/Prmx 100 ml @ 100 mls/hr Q48H IV 12/04/16 12:00 12/12/16 11:59 12/06/16 11:53 100 MLS/HR Amoxicillin (Amoxil Cap) 500 mg Q12 PO 12/02/16 21:00 12/12/16 20:59 12/06/16 08:31 500 MG Saccharomyces Boulardii (Florastor Cap) 250 mg DAILY PO 12/03/16 08:00 01/02/17 07:59 12/06/16 08:31 250 MG Lactobacillus Acidophilus (Floranex Tab) 4 tab TIDM PO 12/03/16 08:00 01/02/17 07:59 12/06/16 11:54 4 TAB Vancomycin HCl (Vancomycin Oral Soln) 125 mg QID PO 12/05/16 12:00 12/19/16 11:59 12/06/16 11:54 125 MG Raspberry (Raspberry Syrup 5ml Cup) 5 ml QID PO 12/05/16 12:00 12/19/16 11:59 12/06/16 11:54 5 ML Quetiapine Fumarate (seroQUEL TAB) 25 mg HS PO 12/05/16 21:00 01/04/17 20:59 12/05/16 19:51 25 MG Potassium Chloride (Klor-Con Tab) 20 meq BID PO 12/06/16 20:00 01/05/17 19:59 Objective Vital Signs Date Time Temp Pulse Resp B/P (MAP) Pulse Ox O2 Delivery O2 Flow Rate FiO2 12/06/16 11:42 176/76 (109) 12/06/16 10:00 Nasal Cannula 2.0 12/06/16 07:49 37.8 64 20 182/79 (113) 95 Room Air 12/06/16 00:24 Room Air 12/05/16 20:15 68 163/74 (103) 12/05/16 20:01 Room Air 95 12/05/16 17:00 96 Nasal Cannula 2.0 Physical Exam General Appearance: WD/WN, no apparent distress Neck: supple, no adenopathy, no JVD, trachea midline Respiratory/Chest: chest non-tender, lungs clear, normal breath sounds, no respiratory distress, no accessory muscle use Cardiovascular: regular rate, rhythm, no edema, no gallop, no JVD, no murmur Abdomen: normal bowel sounds, non tender, soft, no organomegaly Extremities: normal range of motion, no pedal edema, no calf tenderness, pelvis stable, + pertinent finding (foot pain) Neurologic/Psychiatric: director of corporate communications II-XII nml as tested, no motor/sensory deficits, normal mood/affect, + disoriented, + pertinent finding (lethargic) Laboratory Results Last 24 Hours Test 12/05/16 16:57 12/05/16 19:43 12/06/16 07:49 12/06/16 10:55 Bedside Glucose 146 mg/dl 155 mg/dl 189 mg/dl White Blood Count 11.39 K/uL Red Blood Count 2.74 M/uL Hemoglobin 8.2 g/dL Hematocrit 25.1 % Mean Corpuscular Volume 91.6 fL Mean Corpuscular Hemoglobin 29.9 pg Mean Corpuscular Hemoglobin Concent 32.7 g/dl Platelet Count 348 K/uL Mean Platelet Volume 8.8 fL Neutrophils (%) (Auto) 81.4 % Lymphocytes (%) (Auto) 8.9 % Monocytes (%) (Auto) 5.4 % Eosinophils (%) (Auto) 3.5 % Basophils (%) (Auto) 0.4 % Neutrophils # (Auto) 9.28 K/uL Lymphocytes # (Auto) 1.01 K/uL Monocytes # (Auto) 0.61 K/uL Eosinophils # (Auto) 0.40 K/uL Basophils # (Auto) 0.04 K/uL RDW Standard Deviation 48.8 fL RDW Coefficient of Variation 14.7 % Immature Granulocyte % (Auto) 0.4 % Immature Granulocyte # (Auto) 0.05 K/uL Red Blood Cell Morphology Unremarkable Sodium Level 146 mmol/L Potassium Level 2.9 mmol/L Chloride Level 115 mmol/L Carbon Dioxide Level 19 mmol/L Anion Gap 12.0 mmol/L Blood Urea Nitrogen 33 mg/dl Creatinine 2.60 mg/dl Est Creatinine Clear Calc Drug Dose 15.4 ml/min Estimated GFR () 19.4 Estimated GFR (Non- 16.7 BUN/Creatinine Ratio 12.7 Random Glucose 148 mg/dl Calcium Level 8.0 mg/dl Test 12/06/16 11:40 Bedside Glucose 176 mg/dl Assessment and Plan 81 F with fall and left knee pain, with no acute fractures but multiple chronic and some non healing fractures seen in hip and pelvis, foot ulcer noted on presentation DM foot infection: leukocytosis improving slowly, afebrile but low grade temperatures 2 separate blood cultures negative, wound cultures growing Acinetobacter, ID consulted MRI suggests osteomyelitis ID recommends Levaquin and Amoxicillin for the osteomyelitis Bedside debridement with Dr. Johnson on 11/28, going to try conservative management to prevent amputation Ortho: IV antibiotics and wound care , definitive rx would be amputation proximal to area of osteomyelitis, if medical management and wound care not successful. C diff toxin positive: - started Flagyl as per pharmacy recommendation, changed to Vancomycin PO 125mg , continue this for prolonged course Weakness PT/OT/social services aide: Patient would likely benefit from inpatient rehabilitation stay, especially given pelvic fractures pain control. patient prefers [facility] with Ryan Howe as back up d/w CM, going to apply for insurance authorization for tomorrow Diabetes mellitus/hyperglycemia: Controlled with Lantus 16 units Accu-Cheks before meals and at bedtime with NovoLog coverage per scale. Acute chronic kidney failure stage 3: slowly improving, Cr down to 2.6 from peak of 3.1 a few days ago, hold nephrotoxins Delirium: had some confusion, waxing and waning, likely caused by poor sleep, infections, pain, possible baseline memory issues gave Seroquel 25mg last evening, slept well, more oriented this AM will continue Seroquel Hypokalemia: 2.9 today, will give 40mEq PO x 1 and then 20mEq BID, repeat tomorrow Hypertension: Amlodipine 2.5 mg by mouth daily, atenolol 12.5 mg by mouth daily , and aspirin 81 mg by mouth daily. Hold furosemide 40 mg and losartan Hypercholesterolemia: Atorvastatin 80 mg by mouth daily. Hypothyroidism: Levothyroxine sodium 50 g by mouth daily. GERD: Omeprazole 20 mg by mouth daily to pantoprazole 40 mg by mouth daily. Gout: Allopurinol 300 mg by mouth daily. PT/OT recs for SNF vs rehab, trying for authorization tomorrow Continued [facility] stay due to: multiple IV medications needed Discharge planning: rehab hospital
[2016-12-06 16:05] VITALS: BP 174/65; PULSE 62; TEMP 37.6; O2SAT 96
[2016-12-06] MEDS: ATORVASTATIN 10 MG TAB PO SCH (21:37)
[2016-12-06] MEDS: QUETIAPINE FUMARATE 25 MG TAB PO SCH (21:38)
[2016-12-06] MEDS: INSULIN GLARGINE SOLOSTAR 100 UNITS/ML 3 ML PEN SC SCH (21:43)
[2016-12-06] MEDS: ACETAMINOPHEN 325 MG TAB PO PRN (21:46)
[2016-12-06] MEDS: POTASSIUM CHLORIDE 20 MEQ TABCR PO SCH (21:53)
[2016-12-06 23:34] VITALS: BP 139/64; PULSE 58; TEMP 37.4; TEMP 38.6; O2SAT 95
[2016-12-07] VITALS (8 sets, daily range): BP systolic 162–189; BP diastolic 67–79; PULSE 56–64; TEMP 36.9–37.3; O2SAT 96–98
[2016-12-07 06:18] LABS: BASO % 0.4 %; BASO ABS # 0.05 K/uL (0-0.2); EOS % 3.8 %; HEMATOCRIT 25.7 % (37-47); IG% 0.6 %; LYMPH % 13.1 %; LYMPH ABS # 1.55 K/uL (1.2-3.4); MEAN CELL VOLUME 91.1 fL (80-100); MEAN CORPUSCULAR HEMOGLOBIN 28.7 pg (25-34); MEAN CORPUSCULAR HGB CONC 31.5 g/dl (32-36); MEAN PLATELET VOLUME 8.7 fL (7.4-10.4); NEUT % 74.1 %; PLATELET COUNT 395 K/uL (130-400); RED BLOOD COUNT 2.82 M/uL (4.2-5.4); WHITE BLOOD COUNT 11.87 K/uL (4.8-10.8)
[2016-12-07] MEDS: LEVOTHYROXINE 50 MCG TAB PO SCH (06:19)
[2016-12-07 07:05] LABS: BUN/CREATININE RATIO 12.4 (10-20); CALCIUM 8.3 mg/dl (8.5-10.1); CREATININE 2.9 mg/dl (0.60-1.20); POTASSIUM 3.1 mmol/L (3.5-5.1)
[2016-12-07 07:22] LABS: COMPLETE YES
[2016-12-07] MEDS: EUCERIN CR 120 GM JAR EXT SCH ×2 (08:15→20:58)
[2016-12-07] MEDS: CHECK CLONIDINE PATCH PLACEMENT SCH ×3 (08:16→23:37)
[2016-12-07] MEDS: SACCHAROMYCES BOUL (FLORASTOR) 250 MG CAP PO SCH (08:18)
[2016-12-07] MEDS: FERROUS GLUCONATE 324 MG TAB PO SCH ×2 (08:18→21:00)
[2016-12-07] MEDS: CALCIUM 600MG + VIT D 400 IU TAB PO SCH (08:18)
[2016-12-07] MEDS: MULTIVITAMIN TAB PO SCH (08:19)
[2016-12-07] MEDS: CLOPIDOGREL BISULFATE 75 MG TAB PO SCH (08:19)
[2016-12-07] MEDS: CARVEDILOL 12.5 MG TAB PO SCH ×2 (08:19→20:59)
[2016-12-07] MEDS: FUROSEMIDE 40 MG TAB PO SCH (08:19)
[2016-12-07] MEDS: ALLOPURINOL 300 MG TAB PO SCH (08:20)
[2016-12-07] MEDS: LACTOBACILLUS ACIDOPHILUS (FLORANEX) TAB PO SCH ×3 (08:20→18:34)
[2016-12-07] MEDS: AMLODIPINE BESYLATE 5 MG TAB PO SCH (08:20)
[2016-12-07] MEDS: ASPIRIN 81 MG ECTAB PO SCH (08:20)
[2016-12-07] MEDS: CHOLECALCIFEROL 1000 INTER.UNIT TAB PO SCH ×2 (08:21→21:01)
[2016-12-07] MEDS ORDERED: POTASSIUM CHLORIDE 10 MEQ TABCR PO STA (08:29)
[2016-12-07] MEDS: VANCOMYCIN HCL 125 MG/2.5ML SOLN PO SCH ×4 (08:34→20:58)
[2016-12-07] MEDS: AMOXICILLIN 500 MG CAP PO SCH ×2 (08:34→21:02)
[2016-12-07] MEDS: RASPBERRY SYRUP 5 ML UDP PO SCH ×4 (08:34→21:00)
[2016-12-07] MEDS: INSULIN ASPART 100 UNITS/ML 3 ML PEN SC SCH ×4 (08:36→21:08)
[2016-12-07] MEDS: POTASSIUM CHLORIDE 20 MEQ TABCR PO SCH ×2 (09:44→21:01)
--- NOTE | 2016-12-07 10:02 | Progress Note ---
Subjective Date of Service: Dec 07, 2016. Subjective Pt evaluation today including: conversation w/ patient, conversation w/ family (son), physical exam, lab review, review of inpatient medication list Pain: mild foot pain, no severe pain PO Intake: poor per RN Voiding: no voiding problems patient sleeping, slightly confused again this AM per RN she slept well again, Seroquel working poor appetite reviewed labs this AM, Cr up to 2.9, K still low, Hb trending down overall still with poor functional status, would like to see her pushed more for activity, eat and drink more Problem List Medical Problems: (1) Fall Status: Acute (2) Hyperglycemia Status: Acute (3) Renal failure Status: Acute Review of Systems Constitutional: + weakness, + fatigue Abdomen: + problem reported (poor appetite) Neurologic: + memory loss, + weakness Psychiatric: + insomnia All Other Systems: Reviewed and Negative Medications Current Inpatient Medications Medications (Trade) Dose Ordered Sig/Sandra Route Start Time Stop Time Status Last Admin Dose Admin Acetaminophen (Tylenol Tab) 650 mg Q4H PRN PO 11/27/16 06:30 12/27/16 06:29 12/06/16 21:46 650 MG Ondansetron HCl (Zofran Inj) 4 mg Q6H PRN IV 11/27/16 06:30 12/27/16 06:29 12/03/16 04:11 4 MG Insulin Aspart (novoLOG ASPART) SLIDING SCALE If C... ACHS SC 11/27/16 07:15 12/27/16 07:14 12/06/16 21:44 2 UNITS Glucose (Glucose 40% Gel) UD PRN PO 11/27/16 06:30 12/27/16 06:29 Glucose (Glucose Chew Tab) 1 tabs UD PRN PO 11/27/16 06:30 12/27/16 06:29 Dextrose (Dextrose 50% 50ML Syringe) 50 ml UD PRN IV 11/27/16 06:30 12/27/16 06:29 Glucagon (Glucagon Inj) 1 mg UD PRN SQ 11/27/16 06:30 12/27/16 06:29 Allopurinol (Zyloprim Tab) 300 mg DAILY PO 11/27/16 09:00 12/27/16 08:59 12/07/16 08:20 300 MG Amlodipine Besylate (Norvasc Tab) 5 mg DAILY PO 11/27/16 09:00 12/27/16 08:59 12/07/16 08:20 5 MG Aspirin (Ecotrin Tab) 81 mg DAILY PO 11/27/16 09:00 12/27/16 08:59 12/07/16 08:20 81 MG Atorvastatin Calcium (Lipitor Tab) 10 mg QPM PO 11/27/16 21:00 12/27/16 20:59 12/06/16 21:37 10 MG Carvedilol (Coreg Tab) 37.5 mg BID PO 11/27/16 09:00 12/27/16 08:59 12/07/16 08:19 37.5 MG Cholecalciferol (Vitamin D Tab) 2,000 inter.unit BID PO 11/27/16 09:00 12/27/16 08:59 12/07/16 08:21 2,000 INTER.UNIT Clonidine HCl (Nhbabssq-Oue-6 0.1mg/24hr Patch) 1 patch Q7D TD 12/01/16 07:00 12/31/16 06:59 12/01/16 07:44 1 PATCH Clopidogrel Bisulfate (plAVix TAB) 75 mg DAILY PO 11/27/16 09:00 12/27/16 08:59 12/07/16 08:19 75 MG Ferrous Gluconate (Ferrous Gluconate Tab) 324 mg BID PO 11/27/16 09:00 12/27/16 08:59 12/07/16 08:18 324 MG Furosemide (Lasix Tab) 40 mg DAILY PO 11/27/16 09:00 12/27/16 08:59 12/07/16 08:19 40 MG Insulin Glargine (Lantus Solostar Pen) 16 unit QPM SC 11/27/16 21:00 12/27/16 20:59 12/06/16 21:43 16 UNIT Levothyroxine Sodium (Synthroid Tab) 50 mcg DAILYBB PO 11/27/16 07:30 12/27/16 07:29 12/07/16 06:19 50 MCG Multivitamins (Multivitamin Tab) 1 tab DAILY PO 11/27/16 09:00 12/27/16 08:59 12/07/16 08:19 1 TAB Calcium/Vitamin D (Caltrate Plus Tab) 1 tab DAILY PO 11/27/16 09:00 12/27/16 08:59 12/07/16 08:18 1 TAB Miscellaneous (Remove Clonidine Patch) 1 ea Q7D N/A 12/01/16 08:00 12/31/16 07:59 12/01/16 07:44 1 EA Miscellaneous Information (Check Clonidine Patch Placement) 1 ea QS N/A 11/27/16 08:00 12/27/16 07:59 12/07/16 08:16 1 EA Multi-Ingredient Ointment (Eucerin Unscented Cr) 1 appln BID EXT 11/27/16 21:00 12/27/16 20:59 12/07/16 08:15 1 APPLN Levofloxacin (Consult) 1 ea UD PRN N/A 12/02/16 10:45 01/01/17 10:44 Levofloxacin 500 mg/Prmx 100 ml @ 100 mls/hr Q48H IV 12/04/16 12:00 12/12/16 11:59 12/06/16 11:53 100 MLS/HR Amoxicillin (Amoxil Cap) 500 mg Q12 PO 12/02/16 21:00 12/12/16 20:59 12/07/16 08:34 500 MG Saccharomyces Boulardii (Florastor Cap) 250 mg DAILY PO 12/03/16 08:00 01/02/17 07:59 12/07/16 08:18 250 MG Lactobacillus Acidophilus (Floranex Tab) 4 tab TIDM PO 12/03/16 08:00 01/02/17 07:59 12/07/16 08:20 4 TAB Vancomycin HCl (Vancomycin Oral Soln) 125 mg QID PO 12/05/16 12:00 12/19/16 11:59 12/07/16 08:34 125 MG Raspberry (Raspberry Syrup 5ml Cup) 5 ml QID PO 12/05/16 12:00 12/19/16 11:59 12/07/16 08:34 5 ML Quetiapine Fumarate (seroQUEL TAB) 25 mg HS PO 12/05/16 21:00 01/04/17 20:59 12/06/16 21:38 25 MG Potassium Chloride (Klor-Con Tab) 20 meq BID PO 12/06/16 20:00 01/05/17 19:59 12/07/16 09:44 20 MEQ Potassium Chloride/Dextrose/ Sod Cl 1,000 ml @ 75 mls/hr [id number] IV 12/07/16 10:00 01/06/17 09:59 UNV Objective Vital Signs Date Time Temp Pulse Resp B/P (MAP) Pulse Ox O2 Delivery O2 Flow Rate FiO2 12/07/16 07:37 37.2 62 20 189/74 (112) 97 Room Air 12/07/16 03:36 36.9 57 18 162/67 (98) 96 Room Air 12/07/16 00:25 Room Air 12/06/16 23:34 37.4 58 18 139/64 (89) 95 Room Air 12/06/16 22:00 Room Air 12/06/16 16:05 37.6 62 20 174/65 (101) 96 Room Air 12/06/16 15:20 Room Air 12/06/16 11:42 176/76 (109) 12/06/16 10:00 Nasal Cannula 2.0 Physical Exam General Appearance: WD/WN, no apparent distress Neck: supple, no adenopathy, no JVD, trachea midline Respiratory/Chest: chest non-tender, lungs clear, normal breath sounds, no respiratory distress, no accessory muscle use Cardiovascular: regular rate, rhythm, no edema, no gallop, no JVD, no murmur Abdomen: normal bowel sounds, non tender, soft, no organomegaly Extremities: non-tender, normal inspection, no pedal edema, no calf tenderness , pelvis stable 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, alert, + motor weakness, + disoriented Skin: normal color, warm/dry, no rash Laboratory Results Last 24 Hours Test 12/06/16 10:55 12/06/16 11:40 12/06/16 16:33 12/06/16 19:59 White Blood Count 11.39 K/uL Red Blood Count 2.74 M/uL Hemoglobin 8.2 g/dL Hematocrit 25.1 % Mean Corpuscular Volume 91.6 fL Mean Corpuscular Hemoglobin 29.9 pg Mean Corpuscular Hemoglobin Concent 32.7 g/dl Platelet Count 348 K/uL Mean Platelet Volume 8.8 fL Neutrophils (%) (Auto) 81.4 % Lymphocytes (%) (Auto) 8.9 % Monocytes (%) (Auto) 5.4 % Eosinophils (%) (Auto) 3.5 % Basophils (%) (Auto) 0.4 % Neutrophils # (Auto) 9.28 K/uL Lymphocytes # (Auto) 1.01 K/uL Monocytes # (Auto) 0.61 K/uL Eosinophils # (Auto) 0.40 K/uL Basophils # (Auto) 0.04 K/uL RDW Standard Deviation 48.8 fL RDW Coefficient of Variation 14.7 % Immature Granulocyte % (Auto) 0.4 % Immature Granulocyte # (Auto) 0.05 K/uL Red Blood Cell Morphology Unremarkable Sodium Level 146 mmol/L Potassium Level 2.9 mmol/L Chloride Level 115 mmol/L Carbon Dioxide Level 19 mmol/L Anion Gap 12.0 mmol/L Blood Urea Nitrogen 33 mg/dl Creatinine 2.60 mg/dl Est Creatinine Clear Calc Drug Dose 15.4 ml/min Estimated GFR () 19.4 Estimated GFR (Non- 16.7 BUN/Creatinine Ratio 12.7 Random Glucose 148 mg/dl Calcium Level 8.0 mg/dl Bedside Glucose 176 mg/dl 190 mg/dl 200 mg/dl Test 12/07/16 06:00 12/07/16 07:43 White Blood Count 11.87 K/uL Red Blood Count 2.82 M/uL Hemoglobin 8.1 g/dL Hematocrit 25.7 % Mean Corpuscular Volume 91.1 fL Mean Corpuscular Hemoglobin 28.7 pg Mean Corpuscular Hemoglobin Concent 31.5 g/dl Platelet Count 395 K/uL Mean Platelet Volume 8.7 fL Neutrophils (%) (Auto) 74.1 % Lymphocytes (%) (Auto) 13.1 % Monocytes (%) (Auto) 8.0 % Eosinophils (%) (Auto) 3.8 % Basophils (%) (Auto) 0.4 % Neutrophils # (Auto) 8.80 K/uL Lymphocytes # (Auto) 1.55 K/uL Monocytes # (Auto) 0.95 K/uL Eosinophils # (Auto) 0.45 K/uL Basophils # (Auto) 0.05 K/uL RDW Standard Deviation 48.6 fL RDW Coefficient of Variation 14.5 % Immature Granulocyte % (Auto) 0.6 % Immature Granulocyte # (Auto) 0.07 K/uL Red Blood Cell Morphology Unremarkable Sodium Level 146 mmol/L Potassium Level 3.1 mmol/L Chloride Level 116 mmol/L Carbon Dioxide Level 20 mmol/L Anion Gap 10.0 mmol/L Blood Urea Nitrogen 36 mg/dl Creatinine 2.90 mg/dl Est Creatinine Clear Calc Drug Dose 13.8 ml/min Estimated GFR () 17.0 Estimated GFR (Non- 14.7 BUN/Creatinine Ratio 12.4 Random Glucose 152 mg/dl Calcium Level 8.3 mg/dl Magnesium Level 2.0 mg/dl Bedside Glucose 150 mg/dl Assessment and Plan 81 F with fall and left knee pain, with no acute fractures but multiple chronic and some non healing fractures seen in hip and pelvis, foot ulcer noted on presentation DM foot infection: leukocytosis persistent at 11, afebrile but low grade temperatures, last true fever on 11/30 2 separate blood cultures negative, wound cultures growing Acinetobacter, ID consulted MRI suggests osteomyelitis ID recommends Levaquin and Amoxicillin for the osteomyelitis Bedside debridement with Dr. Johnson on 11/28, going to try conservative management to prevent amputation, follow in clinic weekly Ortho: IV antibiotics and wound care , definitive rx would be amputation proximal to area of osteomyelitis, if medical management and wound care not successful. C diff toxin positive: - started Flagyl as per pharmacy recommendation, changed to Vancomycin PO 125mg , continue this for prolonged course while on oral antibiotics for osteomyelitis clinically the diarrhea is improved Weakness PT/OT/social welfare administrator: Patient would likely benefit from inpatient rehabilitation stay, especially given pelvic fractures pain control. patient prefers [facility] with [facility] Howe as back up d/w CM, going to apply for insurance authorization for tomorrow Diabetes mellitus/hyperglycemia: Controlled with Lantus 16 units Accu-Cheks before meals and at bedtime with NovoLog coverage per scale. Acute chronic kidney failure stage 3: Cr back up to 2.9, likely her baseline is now in the 2.5-3.0 range poor oral intake, not drinking enough water Na and Cl high, likely a mild free water deficit hypokalemia with PO replacement will give D5 1/2NSS with 20mEq of K at 75cc/hr, repeat labs tomorrow Anemia: likely multifactorial with CKD and ongoing inflammatory state no current need for transfusion, will follow closely with CBC tomorrow heme occult stools, check iron panel Multifactorial encephalopathy: continues to have confusion, waxing and waning, likely caused by poor sleep, infections, pain, possible baseline memory issues continue Seroquel 25mg HS, helps with sleep and slowly improving orientation Hypokalemia: 3.1 today, will give 40mEq PO this AM and then 20mEq BID, add 20mEq to IV fluids Hypertension: Amlodipine 2.5 mg by mouth daily, atenolol 12.5 mg by mouth daily , and aspirin 81 mg by mouth daily. Hold furosemide 40 mg and losartan Hypercholesterolemia: Atorvastatin 80 mg by mouth daily. Hypothyroidism: Levothyroxine sodium 50 g by mouth daily. GERD: Omeprazole 20 mg by mouth daily to pantoprazole 40 mg by mouth daily. Gout: Allopurinol 300 mg by mouth daily. PT/OT recs for SNF vs rehab, will need authorization but due to electrolytes, poor oral intake, anemia will hold on discharge, reassess daily Continued [facility] stay due to: multiple IV medications needed Discharge planning: rehab hospital
--- NOTE | 2016-12-07 10:34 | Clinical Documentation Query ---
CLINICAL DOCUMENTATION QUERY Dr. WELDON, In your clinical opinion is this patient being managed for: (x ) Multifactorial Encephalopathy ( ) Other explanation of clinical findings (Please Explain) ( ) Unable to determine (Please Define) ( ) Need to Discuss ( ) Not Agree The medical record reflects the following clinical findings, treatment, and risk factors. Clinical Indicators:81 yo female presenting with diabetic foot infection. Since admission, has developed C diff colitis. MRI suggestive of osteomyelitis of foot. Initially alert and oriented x 4, now has been developing some intermittent confusion, lethargy. Intermittent low grade temps (max 37.8). Very slowing improving WBC. Documentation reflects delirium attributed to poor sleep, infections, pain Treatment: IV levaquin, IV amoxicillin, IV vancomycin, ID consult, seroquel, IV fluids, serial labs Risk Factors: diabetic foot infection with suspected osteomyelitis, C diff colitis, GITA (very minimally improved) Many physicians will use the clinical terms delirium and encephalopathy as interchangeable terms. In coding language, delirium and encephalopathy are not considered to be interchangeable terms. "Delirium" may not fully capture the severity of illness intended by the physician. Please clarify and document your clinical opinion in the progress notes and discharge summary. Terms such as "probable", "suspected", "likely", "questionable", "possible", or "still to be ruled out" are acceptable. IF IN AGREEMENT, YOU MUST DOCUMENT ABOVE DIAGNOSTIC STATEMENT IN DAILY PROGRESS NOTES AND DISCHARGE SUMMARY. This document is not part of the patient's record. Thank You, Angelina Sewell, RN [phone]
--- NOTE | 2016-12-07 11:04 | Infectious Disease Progress Nt ---
Progress Note Date of Service Dec 07, 2016. Subjective Pt evaluation today including: conversation w/ patient, physical exam, chart review, lab review, review of studies, conversation w/ network systems consultant, review of inpatient medication list Somewhat confused this AM. No fever. Creatinine up to 2.9 No other obvious new complaints. Constitutional: + weakness, + fatigue Neurologic: + memory loss, + weakness All Other Systems: Reviewed and Negative Medications Current Inpatient Medications Medications (Trade) Dose Ordered Sig/Sandra Route Start Time Stop Time Status Last Admin Dose Admin Acetaminophen (Tylenol Tab) 650 mg Q4H PRN PO 11/27/16 06:30 12/27/16 06:29 12/06/16 21:46 650 MG Ondansetron HCl (Zofran Inj) 4 mg Q6H PRN IV 11/27/16 06:30 12/27/16 06:29 12/03/16 04:11 4 MG Insulin Aspart (novoLOG ASPART) SLIDING SCALE If C... ACHS SC 11/27/16 07:15 12/27/16 07:14 12/06/16 21:44 2 UNITS Glucose (Glucose 40% Gel) UD PRN PO 11/27/16 06:30 12/27/16 06:29 Glucose (Glucose Chew Tab) 1 tabs UD PRN PO 11/27/16 06:30 12/27/16 06:29 Dextrose (Dextrose 50% 50ML Syringe) 50 ml UD PRN IV 11/27/16 06:30 12/27/16 06:29 Glucagon (Glucagon Inj) 1 mg UD PRN SQ 11/27/16 06:30 12/27/16 06:29 Allopurinol (Zyloprim Tab) 300 mg DAILY PO 11/27/16 09:00 12/27/16 08:59 12/07/16 08:20 300 MG Amlodipine Besylate (Norvasc Tab) 5 mg DAILY PO 11/27/16 09:00 12/27/16 08:59 12/07/16 08:20 5 MG Aspirin (Ecotrin Tab) 81 mg DAILY PO 11/27/16 09:00 12/27/16 08:59 12/07/16 08:20 81 MG Atorvastatin Calcium (Lipitor Tab) 10 mg QPM PO 11/27/16 21:00 12/27/16 20:59 12/06/16 21:37 10 MG Carvedilol (Coreg Tab) 37.5 mg BID PO 11/27/16 09:00 12/27/16 08:59 12/07/16 08:19 37.5 MG Cholecalciferol (Vitamin D Tab) 2,000 inter.unit BID PO 11/27/16 09:00 12/27/16 08:59 12/07/16 08:21 2,000 INTER.UNIT Clonidine HCl (Nmmuhdii-Pal-2 0.1mg/24hr Patch) 1 patch Q7D TD 12/01/16 07:00 12/31/16 06:59 12/01/16 07:44 1 PATCH Clopidogrel Bisulfate (plAVix TAB) 75 mg DAILY PO 11/27/16 09:00 12/27/16 08:59 12/07/16 08:19 75 MG Ferrous Gluconate (Ferrous Gluconate Tab) 324 mg BID PO 11/27/16 09:00 12/27/16 08:59 12/07/16 08:18 324 MG Furosemide (Lasix Tab) 40 mg DAILY PO 11/27/16 09:00 12/27/16 08:59 12/07/16 08:19 40 MG Insulin Glargine (Lantus Solostar Pen) 16 unit QPM SC 11/27/16 21:00 12/27/16 20:59 12/06/16 21:43 16 UNIT Levothyroxine Sodium (Synthroid Tab) 50 mcg DAILYBB PO 11/27/16 07:30 12/27/16 07:29 12/07/16 06:19 50 MCG Multivitamins (Multivitamin Tab) 1 tab DAILY PO 11/27/16 09:00 12/27/16 08:59 12/07/16 08:19 1 TAB Calcium/Vitamin D (Caltrate Plus Tab) 1 tab DAILY PO 11/27/16 09:00 12/27/16 08:59 12/07/16 08:18 1 TAB Miscellaneous (Remove Clonidine Patch) 1 ea Q7D N/A 12/01/16 08:00 12/31/16 07:59 12/01/16 07:44 1 EA Miscellaneous Information (Check Clonidine Patch Placement) 1 ea QS N/A 11/27/16 08:00 12/27/16 07:59 12/07/16 08:16 1 EA Multi-Ingredient Ointment (Eucerin Unscented Cr) 1 appln BID EXT 11/27/16 21:00 12/27/16 20:59 12/07/16 08:15 1 APPLN Levofloxacin (Consult) 1 ea UD PRN N/A 12/02/16 10:45 01/01/17 10:44 Levofloxacin 500 mg/Prmx 100 ml @ 100 mls/hr Q48H IV 12/04/16 12:00 12/12/16 11:59 12/06/16 11:53 100 MLS/HR Amoxicillin (Amoxil Cap) 500 mg Q12 PO 12/02/16 21:00 12/12/16 20:59 12/07/16 08:34 500 MG Saccharomyces Boulardii (Florastor Cap) 250 mg DAILY PO 12/03/16 08:00 01/02/17 07:59 12/07/16 08:18 250 MG Lactobacillus Acidophilus (Floranex Tab) 4 tab TIDM PO 12/03/16 08:00 01/02/17 07:59 12/07/16 08:20 4 TAB Vancomycin HCl (Vancomycin Oral Soln) 125 mg QID PO 12/05/16 12:00 12/19/16 11:59 12/07/16 08:34 125 MG Raspberry (Raspberry Syrup 5ml Cup) 5 ml QID PO 12/05/16 12:00 12/19/16 11:59 12/07/16 08:34 5 ML Quetiapine Fumarate (seroQUEL TAB) 25 mg HS PO 12/05/16 21:00 01/04/17 20:59 12/06/16 21:38 25 MG Potassium Chloride (Klor-Con Tab) 20 meq BID PO 12/06/16 20:00 01/05/17 19:59 12/07/16 09:44 20 MEQ Potassium Chloride/Dextrose/ Sod Cl 1,000 ml @ 75 mls/hr [id number] IV 12/07/16 11:30 01/06/17 11:29 Objective Vital Signs Date Time Temp Pulse Resp B/P (MAP) Pulse Ox O2 Delivery O2 Flow Rate FiO2 12/07/16 08:00 Room Air 12/07/16 07:37 37.2 62 20 189/74 (112) 97 Room Air 12/07/16 03:36 36.9 57 18 162/67 (98) 96 Room Air 12/07/16 00:25 Room Air 12/06/16 23:34 37.4 58 18 139/64 (89) 95 Room Air 12/06/16 22:00 Room Air 12/06/16 16:05 37.6 62 20 174/65 (101) 96 Room Air 12/06/16 15:20 Room Air 12/06/16 11:42 176/76 (109) Physical Exam General Appearance: WD/WN, no apparent distress Eyes: normal inspection, sclerae normal ENT: normal ENT inspection, pharynx normal Neck: supple, no adenopathy, trachea midline Respiratory/Chest: lungs clear, normal breath sounds, no respiratory distress Cardiovascular: regular rate, rhythm, no gallop, no murmur Abdomen: normal bowel sounds, non tender, soft, no organomegaly Extremities: non-tender, no calf tenderness Neurologic/Psychiatric: alert, oriented x 3 Skin: normal color, no rash Lymphatic: no adenopathy Laboratory Results Last 24 Hours Test 12/06/16 11:40 12/06/16 16:33 12/06/16 19:59 12/07/16 06:00 Bedside Glucose 176 mg/dl 190 mg/dl 200 mg/dl White Blood Count 11.87 K/uL Red Blood Count 2.82 M/uL Hemoglobin 8.1 g/dL Hematocrit 25.7 % Mean Corpuscular Volume 91.1 fL Mean Corpuscular Hemoglobin 28.7 pg Mean Corpuscular Hemoglobin Concent 31.5 g/dl Platelet Count 395 K/uL Mean Platelet Volume 8.7 fL Neutrophils (%) (Auto) 74.1 % Lymphocytes (%) (Auto) 13.1 % Monocytes (%) (Auto) 8.0 % Eosinophils (%) (Auto) 3.8 % Basophils (%) (Auto) 0.4 % Neutrophils # (Auto) 8.80 K/uL Lymphocytes # (Auto) 1.55 K/uL Monocytes # (Auto) 0.95 K/uL Eosinophils # (Auto) 0.45 K/uL Basophils # (Auto) 0.05 K/uL RDW Standard Deviation 48.6 fL RDW Coefficient of Variation 14.5 % Immature Granulocyte % (Auto) 0.6 % Immature Granulocyte # (Auto) 0.07 K/uL Red Blood Cell Morphology Unremarkable Sodium Level 146 mmol/L Potassium Level 3.1 mmol/L Chloride Level 116 mmol/L Carbon Dioxide Level 20 mmol/L Anion Gap 10.0 mmol/L Blood Urea Nitrogen 36 mg/dl Creatinine 2.90 mg/dl Est Creatinine Clear Calc Drug Dose 13.8 ml/min Estimated GFR () 17.0 Estimated GFR (Non- 14.7 BUN/Creatinine Ratio 12.4 Random Glucose 152 mg/dl Calcium Level 8.3 mg/dl Magnesium Level 2.0 mg/dl Test 12/07/16 07:43 12/07/16 10:31 Bedside Glucose 150 mg/dl Assessment and Plan Patient with osteomyelitis of the left foot with Acinetobacter and Enterococcus , as well as with subsequent development of C difficile colitis. I would continue patient on levofloxacin and amoxicillin, and I have discontinued ceftazidime as the Acinetobacter is sensitive to levofloxacin. Patient should continue on vancomycin, and I would recommend prolonged tapering course given ongoing need for antibiotics. We will continue to follow.
[2016-12-07 11:21] LABS: FERRITIN 306.4 ng/ml (8.0-388.0)
[2016-12-07] MEDS: D5W AND 1/2NSS + 20MEQ KCL 1,000 ML IV SCH (11:53)
[2016-12-07] MEDS: ACETAMINOPHEN 325 MG TAB PO PRN ×2 (12:08→21:18)
[2016-12-07] MEDS: ATORVASTATIN 10 MG TAB PO SCH (20:59)
[2016-12-07] MEDS: QUETIAPINE FUMARATE 25 MG TAB PO SCH (21:00)
[2016-12-07] MEDS: INSULIN GLARGINE SOLOSTAR 100 UNITS/ML 3 ML PEN SC SCH (21:09)
[2016-12-08] VITALS (7 sets, daily range): BP systolic 174–196; BP diastolic 65–74; PULSE 58–64; TEMP 37.1–38.1; O2SAT 94–98
[2016-12-08] MEDS: D5W AND 1/2NSS + 20MEQ KCL 1,000 ML IV SCH (02:06)
[2016-12-08] MEDS: LEVOTHYROXINE 50 MCG TAB PO SCH (06:12)
[2016-12-08 06:21] LABS: BASO % 0.2 %; BASO ABS # 0.02 K/uL (0-0.2); HEMATOCRIT 24.4 % (37-47); IG% 1.4 %; LYMPH % 16.2 %; LYMPH ABS # 1.88 K/uL (1.2-3.4); MEAN CELL VOLUME 91.4 fL (80-100); MEAN CORPUSCULAR HEMOGLOBIN 28.8 pg (25-34); MEAN CORPUSCULAR HGB CONC 31.6 g/dl (32-36); MEAN PLATELET VOLUME 8.8 fL (7.4-10.4); MONO % 7.2 %; PLATELET COUNT 422 K/uL (130-400); RED BLOOD COUNT 2.67 M/uL (4.2-5.4)
[2016-12-08 06:56] LABS: BUN/CREATININE RATIO 12.7 (10-20); CREATININE 2.8 mg/dl (0.60-1.20); POTASSIUM 3.8 mmol/L (3.5-5.1)
[2016-12-08 07:05] LABS: COMPLETE YES
[2016-12-08] MEDS: EUCERIN CR 120 GM JAR EXT SCH ×2 (09:21→21:58)
[2016-12-08] MEDS: CALCIUM 600MG + VIT D 400 IU TAB PO SCH (09:21)
[2016-12-08] MEDS: LACTOBACILLUS ACIDOPHILUS (FLORANEX) TAB PO SCH ×3 (09:22→18:14)
[2016-12-08] MEDS: CARVEDILOL 12.5 MG TAB PO SCH ×2 (09:22→22:00)
[2016-12-08] MEDS: FERROUS GLUCONATE 324 MG TAB PO SCH ×2 (09:22→22:00)
[2016-12-08] MEDS: ASPIRIN 81 MG ECTAB PO SCH (09:22)
[2016-12-08] MEDS: SACCHAROMYCES BOUL (FLORASTOR) 250 MG CAP PO SCH (09:22)
[2016-12-08] MEDS: RASPBERRY SYRUP 5 ML UDP PO SCH ×4 (09:23→21:58)
[2016-12-08] MEDS: POTASSIUM CHLORIDE 20 MEQ TABCR PO SCH ×2 (09:23→22:01)
[2016-12-08] MEDS: CLOPIDOGREL BISULFATE 75 MG TAB PO SCH (09:23)
[2016-12-08] MEDS: MULTIVITAMIN TAB PO SCH (09:23)
[2016-12-08] MEDS: FUROSEMIDE 40 MG TAB PO SCH (09:23)
[2016-12-08] MEDS: VANCOMYCIN HCL 125 MG/2.5ML SOLN PO SCH ×4 (09:23→21:59)
[2016-12-08] MEDS: CHECK CLONIDINE PATCH PLACEMENT SCH ×3 (09:24→23:40)
[2016-12-08] MEDS: CHOLECALCIFEROL 1000 INTER.UNIT TAB PO SCH ×2 (09:24→22:01)
[2016-12-08] MEDS: AMOXICILLIN 500 MG CAP PO SCH ×2 (09:24→22:01)
[2016-12-08] MEDS: ALLOPURINOL 300 MG TAB PO SCH (09:24)
[2016-12-08] MEDS: CLONIDINE HCL 0.1 MG/24 HR TRANSDERM SYS TD SCH (09:25)
[2016-12-08] MEDS: INSULIN ASPART 100 UNITS/ML 3 ML PEN SC SCH ×4 (09:36→21:57)
[2016-12-08] MEDS: SODIUM CHLORIDE 0.45% 1000ML 1,000 ML IV SCH (11:14)
[2016-12-08] MEDS: LEVOFLOXACIN 500MG / D5W IV SCH (11:38)
[2016-12-08] MEDS: AMLODIPINE BESYLATE 5 MG TAB PO SCH (12:34)
[2016-12-08 13:10] LABS: HEMATOCRIT 26.5 % (37-47)
--- NOTE | 2016-12-08 15:45 | Progress Note ---
Subjective Date of Service: Dec 08, 2016. Subjective Pt evaluation today including: conversation w/ patient, physical exam, lab review, review of inpatient medication list Pain: legs and foot, hips PO Intake: improving Voiding: prieto catheter in place patient more oriented today, very sharp, remembers details of admission discussed labs today, Hb trending down, patient would be open to transfusion if needed no melena seen, will heme occult stools discussed renal function, stable for now discussed plan for rehab, maybe tomorrow, she is agreeable Problem List Medical Problems: (1) Fall Status: Acute (2) Hyperglycemia Status: Acute (3) Renal failure Status: Acute Review of Systems Constitutional: + weakness, + fatigue Musculoskeletal: + joint pain All Other Systems: Reviewed and Negative Medications Current Inpatient Medications Medications (Trade) Dose Ordered Sig/Sandra Route Start Time Stop Time Status Last Admin Dose Admin Acetaminophen (Tylenol Tab) 650 mg Q4H PRN PO 11/27/16 06:30 12/27/16 06:29 12/07/16 21:18 650 MG Ondansetron HCl (Zofran Inj) 4 mg Q6H PRN IV 11/27/16 06:30 12/27/16 06:29 12/03/16 04:11 4 MG Insulin Aspart (novoLOG ASPART) SLIDING SCALE If C... ACHS SC 11/27/16 07:15 12/27/16 07:14 12/08/16 12:37 5 UNITS Glucose (Glucose 40% Gel) UD PRN PO 11/27/16 06:30 12/27/16 06:29 Glucose (Glucose Chew Tab) 1 tabs UD PRN PO 11/27/16 06:30 12/27/16 06:29 Dextrose (Dextrose 50% 50ML Syringe) 50 ml UD PRN IV 11/27/16 06:30 12/27/16 06:29 Glucagon (Glucagon Inj) 1 mg UD PRN SQ 11/27/16 06:30 12/27/16 06:29 Allopurinol (Zyloprim Tab) 300 mg DAILY PO 11/27/16 09:00 12/27/16 08:59 12/08/16 09:24 300 MG Aspirin (Ecotrin Tab) 81 mg DAILY PO 11/27/16 09:00 12/27/16 08:59 12/08/16 09:22 81 MG Atorvastatin Calcium (Lipitor Tab) 10 mg QPM PO 11/27/16 21:00 12/27/16 20:59 12/07/16 20:59 10 MG Carvedilol (Coreg Tab) 37.5 mg BID PO 11/27/16 09:00 12/27/16 08:59 12/08/16 09:22 37.5 MG Cholecalciferol (Vitamin D Tab) 2,000 inter.unit BID PO 11/27/16 09:00 12/27/16 08:59 12/08/16 09:24 2,000 INTER.UNIT Clonidine HCl (Xccwlvps-Bnx-7 0.1mg/24hr Patch) 1 patch Q7D TD 12/01/16 07:00 12/31/16 06:59 12/08/16 09:25 1 PATCH Clopidogrel Bisulfate (plAVix TAB) 75 mg DAILY PO 11/27/16 09:00 12/27/16 08:59 12/08/16 09:23 75 MG Ferrous Gluconate (Ferrous Gluconate Tab) 324 mg BID PO 11/27/16 09:00 12/27/16 08:59 12/08/16 09:22 324 MG Furosemide (Lasix Tab) 40 mg DAILY PO 11/27/16 09:00 12/27/16 08:59 12/08/16 09:23 40 MG Insulin Glargine (Lantus Solostar Pen) 16 unit QPM SC 11/27/16 21:00 12/27/16 20:59 12/07/16 21:09 16 UNIT Levothyroxine Sodium (Synthroid Tab) 50 mcg DAILYBB PO 11/27/16 07:30 12/27/16 07:29 12/08/16 06:12 50 MCG Multivitamins (Multivitamin Tab) 1 tab DAILY PO 11/27/16 09:00 12/27/16 08:59 12/08/16 09:23 1 TAB Calcium/Vitamin D (Caltrate Plus Tab) 1 tab DAILY PO 11/27/16 09:00 12/27/16 08:59 12/08/16 09:21 1 TAB Miscellaneous (Remove Clonidine Patch) 1 ea Q7D N/A 12/01/16 08:00 12/31/16 07:59 12/08/16 09:24 1 EA Miscellaneous Information (Check Clonidine Patch Placement) 1 ea QS N/A 11/27/16 08:00 12/27/16 07:59 12/08/16 09:24 1 EA Multi-Ingredient Ointment (Eucerin Unscented Cr) 1 appln BID EXT 11/27/16 21:00 12/27/16 20:59 12/08/16 09:21 1 APPLN Levofloxacin (Consult) 1 ea UD PRN N/A 12/02/16 10:45 01/01/17 10:44 Levofloxacin 500 mg/Prmx 100 ml @ 100 mls/hr Q48H IV 12/04/16 12:00 12/12/16 11:59 12/08/16 11:38 100 MLS/HR Amoxicillin (Amoxil Cap) 500 mg Q12 PO 12/02/16 21:00 12/12/16 20:59 12/08/16 09:24 500 MG Saccharomyces Boulardii (Florastor Cap) 250 mg DAILY PO 12/03/16 08:00 01/02/17 07:59 12/08/16 09:22 250 MG Lactobacillus Acidophilus (Floranex Tab) 4 tab TIDM PO 12/03/16 08:00 01/02/17 07:59 12/08/16 12:34 4 TAB Vancomycin HCl (Vancomycin Oral Soln) 125 mg QID PO 12/05/16 12:00 12/19/16 11:59 12/08/16 12:35 125 MG Raspberry (Raspberry Syrup 5ml Cup) 5 ml QID PO 12/05/16 12:00 12/19/16 11:59 12/08/16 12:35 5 ML Quetiapine Fumarate (seroQUEL TAB) 25 mg HS PO 12/05/16 21:00 01/04/17 20:59 12/07/16 21:00 25 MG Potassium Chloride (Klor-Con Tab) 20 meq BID PO 12/06/16 20:00 01/05/17 19:59 12/08/16 09:23 20 MEQ Amlodipine Besylate (Norvasc Tab) 10 mg DAILY PO 12/08/16 09:30 01/07/17 09:29 12/08/16 12:34 10 MG Sodium Chloride 1,000 ml @ 75 mls/hr [id number] IV 12/08/16 10:45 01/07/17 10:44 12/08/16 11:14 75 MLS/HR Objective Vital Signs Date Time Temp Pulse Resp B/P (MAP) Pulse Ox O2 Delivery O2 Flow Rate FiO2 12/08/16 12:30 59 191/72 (111) 12/08/16 11:28 Room Air 12/08/16 07:31 37.3 60 22 196/74 (114) 97 Room Air 191/70 (110) 12/08/16 04:00 37.1 58 20 176/65 (102) 97 Room Air 12/08/16 00:18 37.5 62 18 183/65 (104) 96 Room Air 12/08/16 00:00 Room Air 12/07/16 22:27 64 163/70 (101) 12/07/16 20:25 37.3 63 20 186/76 (112) 98 Room Air 12/07/16 16:10 98 Room Air Physical Exam General Appearance: WD/WN, no apparent distress Neck: supple, no adenopathy, no JVD, trachea midline Respiratory/Chest: chest non-tender, lungs clear, normal breath sounds, no respiratory distress, no accessory muscle use Cardiovascular: regular rate, rhythm, no edema, no gallop, no JVD, no murmur Abdomen: normal bowel sounds, non tender, soft, no organomegaly Extremities: normal range of motion, non-tender, normal inspection, no pedal edema, no calf tenderness, pelvis stable Neurologic/Psychiatric: hunter II-XII nml as tested, alert, normal mood/affect, oriented x 3, + motor weakness (generalized) Skin: normal color, warm/dry, no rash Laboratory Results Last 24 Hours Test 12/07/16 16:44 12/07/16 20:23 12/08/16 06:02 12/08/16 07:20 Bedside Glucose 204 mg/dl 219 mg/dl 189 mg/dl White Blood Count 11.60 K/uL Red Blood Count 2.67 M/uL Hemoglobin 7.7 g/dL Hematocrit 24.4 % Mean Corpuscular Volume 91.4 fL Mean Corpuscular Hemoglobin 28.8 pg Mean Corpuscular Hemoglobin Concent 31.6 g/dl Platelet Count 422 K/uL Mean Platelet Volume 8.8 fL Neutrophils (%) (Auto) 70.0 % Lymphocytes (%) (Auto) 16.2 % Monocytes (%) (Auto) 7.2 % Eosinophils (%) (Auto) 5.0 % Basophils (%) (Auto) 0.2 % Neutrophils # (Auto) 8.12 K/uL Lymphocytes # (Auto) 1.88 K/uL Monocytes # (Auto) 0.84 K/uL Eosinophils # (Auto) 0.58 K/uL Basophils # (Auto) 0.02 K/uL RDW Standard Deviation 48.9 fL RDW Coefficient of Variation 14.6 % Immature Granulocyte % (Auto) 1.4 % Immature Granulocyte # (Auto) 0.16 K/uL Red Blood Cell Morphology Unremarkable Sodium Level 145 mmol/L Potassium Level 3.8 mmol/L Chloride Level 115 mmol/L Carbon Dioxide Level 20 mmol/L Anion Gap 10.0 mmol/L Blood Urea Nitrogen 35 mg/dl Creatinine 2.80 mg/dl Est Creatinine Clear Calc Drug Dose 14.3 ml/min Estimated GFR () 17.7 Estimated GFR (Non- 15.3 BUN/Creatinine Ratio 12.7 Random Glucose 185 mg/dl Calcium Level 8.0 mg/dl Magnesium Level 2.0 mg/dl Test 12/08/16 11:24 12/08/16 13:03 Bedside Glucose 236 mg/dl Hemoglobin 8.6 g/dL Hematocrit 26.5 % Assessment and Plan 81 F with fall and left knee pain, with no acute fractures but multiple chronic and some non healing fractures seen in hip and pelvis, foot ulcer noted on presentation DM foot infection: leukocytosis persistent at 11, afebrile but low grade temperatures, last true fever on 11/30 2 separate blood cultures negative, wound cultures growing Acinetobacter, ID consulted MRI suggests osteomyelitis ID recommends Levaquin and Amoxicillin for the osteomyelitis Bedside debridement with Dr. Johnson on 11/28, going to try conservative management to prevent amputation, follow in clinic weekly would need amputation if conservative care not successful C diff toxin positive: Vancomycin PO 125mg, continue this for prolonged course while on oral antibiotics for osteomyelitis clinically the diarrhea is improved Weakness PT/OT/manager social work: Patient would likely benefit from inpatient rehabilitation stay, especially given pelvic fractures pain control. patient prefers [facility] with Ryan Howe as back up delays in trying to transfer due to renal function, anemia, confusion patient looks well today, really going to shoot for d/c tomorrow Diabetes mellitus/hyperglycemia: Controlled with Lantus 16 units Accu-Cheks before meals and at bedtime with NovoLog coverage per scale. Acute chronic kidney failure stage 3: Cr steayd at 2.8, likely her baseline is now in the 2.5-3.0 range improved oral intake today change fluids to 1/2 NSS at 75cc/hr, continue today, stop tomorrow K stable, Na normal, Cl trending down Anemia: likely multifactorial with CKD and ongoing inflammatory state Hb 7.7 this AM, went up to 8.6 in the afternoon heme check stools hold on transfusion ferritin adequate Multifactorial encephalopathy: confusion resolved today, thinking very clearly confusion was waxing and waning, likely caused by poor sleep, infections, pain, possible baseline memory issues continue Seroquel 25mg HS, helps with sleep and improving orientation Hypokalemia: 3.8 today, resolved Hypertension: Amlodipine 2.5 mg by mouth daily, atenolol 12.5 mg by mouth daily , and aspirin 81 mg by mouth daily. Hold furosemide 40 mg and losartan Hypercholesterolemia: Atorvastatin 80 mg by mouth daily. Hypothyroidism: Levothyroxine sodium 50 g by mouth daily. GERD: Omeprazole 20 mg by mouth daily to pantoprazole 40 mg by mouth daily. Gout: Allopurinol 300 mg by mouth daily. PT/OT recs for SNF vs rehab, will try for [facility] tomorrow Continued [facility] stay due to: multiple IV medications needed Discharge planning: rehab hospital
--- NOTE | 2016-12-08 16:59 | Infectious Disease Progress Nt ---
Progress Note Date of Service Dec 08, 2016. Subjective Pt evaluation today including: conversation w/ patient, physical exam, chart review, lab review, review of studies, conversation w/ acquisition consultant, review of inpatient medication list Patient more alert and oriented this morning. Offers no new complaints. Pain control. Remains afebrile. Appears to be tolerating antibiotics without apparent difficulty. All Other Systems: Reviewed and Negative Medications Current Inpatient Medications Medications (Trade) Dose Ordered Sig/Sandra Route Start Time Stop Time Status Last Admin Dose Admin Acetaminophen (Tylenol Tab) 650 mg Q4H PRN PO 11/27/16 06:30 12/27/16 06:29 12/07/16 21:18 650 MG Ondansetron HCl (Zofran Inj) 4 mg Q6H PRN IV 11/27/16 06:30 12/27/16 06:29 12/03/16 04:11 4 MG Insulin Aspart (novoLOG ASPART) SLIDING SCALE If C... ACHS SC 11/27/16 07:15 12/27/16 07:14 12/08/16 12:37 5 UNITS Glucose (Glucose 40% Gel) UD PRN PO 11/27/16 06:30 12/27/16 06:29 Glucose (Glucose Chew Tab) 1 tabs UD PRN PO 11/27/16 06:30 12/27/16 06:29 Dextrose (Dextrose 50% 50ML Syringe) 50 ml UD PRN IV 11/27/16 06:30 12/27/16 06:29 Glucagon (Glucagon Inj) 1 mg UD PRN SQ 11/27/16 06:30 12/27/16 06:29 Allopurinol (Zyloprim Tab) 300 mg DAILY PO 11/27/16 09:00 12/27/16 08:59 12/08/16 09:24 300 MG Aspirin (Ecotrin Tab) 81 mg DAILY PO 11/27/16 09:00 12/27/16 08:59 12/08/16 09:22 81 MG Atorvastatin Calcium (Lipitor Tab) 10 mg QPM PO 11/27/16 21:00 12/27/16 20:59 12/07/16 20:59 10 MG Carvedilol (Coreg Tab) 37.5 mg BID PO 11/27/16 09:00 12/27/16 08:59 12/08/16 09:22 37.5 MG Cholecalciferol (Vitamin D Tab) 2,000 inter.unit BID PO 11/27/16 09:00 12/27/16 08:59 12/08/16 09:24 2,000 INTER.UNIT Clonidine HCl (Ovkdhvmt-Mip-6 0.1mg/24hr Patch) 1 patch Q7D TD 12/01/16 07:00 12/31/16 06:59 12/08/16 09:25 1 PATCH Clopidogrel Bisulfate (plAVix TAB) 75 mg DAILY PO 11/27/16 09:00 12/27/16 08:59 12/08/16 09:23 75 MG Ferrous Gluconate (Ferrous Gluconate Tab) 324 mg BID PO 11/27/16 09:00 12/27/16 08:59 12/08/16 09:22 324 MG Furosemide (Lasix Tab) 40 mg DAILY PO 11/27/16 09:00 12/27/16 08:59 12/08/16 09:23 40 MG Insulin Glargine (Lantus Solostar Pen) 16 unit QPM SC 11/27/16 21:00 12/27/16 20:59 12/07/16 21:09 16 UNIT Levothyroxine Sodium (Synthroid Tab) 50 mcg DAILYBB PO 11/27/16 07:30 12/27/16 07:29 12/08/16 06:12 50 MCG Multivitamins (Multivitamin Tab) 1 tab DAILY PO 11/27/16 09:00 12/27/16 08:59 12/08/16 09:23 1 TAB Calcium/Vitamin D (Caltrate Plus Tab) 1 tab DAILY PO 11/27/16 09:00 12/27/16 08:59 12/08/16 09:21 1 TAB Miscellaneous (Remove Clonidine Patch) 1 ea Q7D N/A 12/01/16 08:00 12/31/16 07:59 12/08/16 09:24 1 EA Miscellaneous Information (Check Clonidine Patch Placement) 1 ea QS N/A 11/27/16 08:00 12/27/16 07:59 12/08/16 09:24 1 EA Multi-Ingredient Ointment (Eucerin Unscented Cr) 1 appln BID EXT 11/27/16 21:00 12/27/16 20:59 12/08/16 09:21 1 APPLN Levofloxacin (Consult) 1 ea UD PRN N/A 12/02/16 10:45 01/01/17 10:44 Levofloxacin 500 mg/Prmx 100 ml @ 100 mls/hr Q48H IV 12/04/16 12:00 12/12/16 11:59 12/08/16 11:38 100 MLS/HR Amoxicillin (Amoxil Cap) 500 mg Q12 PO 12/02/16 21:00 12/12/16 20:59 12/08/16 09:24 500 MG Saccharomyces Boulardii (Florastor Cap) 250 mg DAILY PO 12/03/16 08:00 01/02/17 07:59 12/08/16 09:22 250 MG Lactobacillus Acidophilus (Floranex Tab) 4 tab TIDM PO 12/03/16 08:00 01/02/17 07:59 12/08/16 12:34 4 TAB Vancomycin HCl (Vancomycin Oral Soln) 125 mg QID PO 12/05/16 12:00 12/19/16 11:59 12/08/16 12:35 125 MG Raspberry (Raspberry Syrup 5ml Cup) 5 ml QID PO 12/05/16 12:00 12/19/16 11:59 12/08/16 12:35 5 ML Quetiapine Fumarate (seroQUEL TAB) 25 mg HS PO 12/05/16 21:00 01/04/17 20:59 12/07/16 21:00 25 MG Potassium Chloride (Klor-Con Tab) 20 meq BID PO 12/06/16 20:00 01/05/17 19:59 12/08/16 09:23 20 MEQ Amlodipine Besylate (Norvasc Tab) 10 mg DAILY PO 12/08/16 09:30 01/07/17 09:29 12/08/16 12:34 10 MG Sodium Chloride 1,000 ml @ 75 mls/hr [id number] IV 12/08/16 10:45 01/07/17 10:44 12/08/16 11:14 75 MLS/HR Objective Vital Signs Date Time Temp Pulse Resp B/P (MAP) Pulse Ox O2 Delivery O2 Flow Rate FiO2 12/08/16 15:45 37.9 59 22 182/65 (104) 94 Room Air 12/08/16 12:30 59 191/72 (111) 12/08/16 11:28 Room Air 12/08/16 07:31 37.3 60 22 196/74 (114) 97 Room Air 191/70 (110) 12/08/16 04:00 37.1 58 20 176/65 (102) 97 Room Air 12/08/16 00:18 37.5 62 18 183/65 (104) 96 Room Air 12/08/16 00:00 Room Air 12/07/16 22:27 64 163/70 (101) 12/07/16 20:25 37.3 63 20 186/76 (112) 98 Room Air Physical Exam General Appearance: WD/WN, no apparent distress Eyes: normal inspection, sclerae normal ENT: normal ENT inspection, pharynx normal Neck: supple, no adenopathy, trachea midline Respiratory/Chest: chest non-tender, lungs clear, normal breath sounds, no respiratory distress Cardiovascular: regular rate, rhythm, no gallop, no murmur Abdomen: normal bowel sounds, non tender, soft, no organomegaly Extremities: non-tender, no calf tenderness Neurologic/Psychiatric: alert, oriented x 3 Skin: normal color, no rash, + pertinent finding ( Left plantar ulcer improved ) Lymphatic: no adenopathy Laboratory Results Last 24 Hours Test 12/07/16 20:23 12/08/16 06:02 12/08/16 07:20 12/08/16 11:24 Bedside Glucose 219 mg/dl 189 mg/dl 236 mg/dl White Blood Count 11.60 K/uL Red Blood Count 2.67 M/uL Hemoglobin 7.7 g/dL Hematocrit 24.4 % Mean Corpuscular Volume 91.4 fL Mean Corpuscular Hemoglobin 28.8 pg Mean Corpuscular Hemoglobin Concent 31.6 g/dl Platelet Count 422 K/uL Mean Platelet Volume 8.8 fL Neutrophils (%) (Auto) 70.0 % Lymphocytes (%) (Auto) 16.2 % Monocytes (%) (Auto) 7.2 % Eosinophils (%) (Auto) 5.0 % Basophils (%) (Auto) 0.2 % Neutrophils # (Auto) 8.12 K/uL Lymphocytes # (Auto) 1.88 K/uL Monocytes # (Auto) 0.84 K/uL Eosinophils # (Auto) 0.58 K/uL Basophils # (Auto) 0.02 K/uL RDW Standard Deviation 48.9 fL RDW Coefficient of Variation 14.6 % Immature Granulocyte % (Auto) 1.4 % Immature Granulocyte # (Auto) 0.16 K/uL Red Blood Cell Morphology Unremarkable Sodium Level 145 mmol/L Potassium Level 3.8 mmol/L Chloride Level 115 mmol/L Carbon Dioxide Level 20 mmol/L Anion Gap 10.0 mmol/L Blood Urea Nitrogen 35 mg/dl Creatinine 2.80 mg/dl Est Creatinine Clear Calc Drug Dose 14.3 ml/min Estimated GFR () 17.7 Estimated GFR (Non- 15.3 BUN/Creatinine Ratio 12.7 Random Glucose 185 mg/dl Calcium Level 8.0 mg/dl Magnesium Level 2.0 mg/dl Test 12/08/16 13:03 12/08/16 16:38 Hemoglobin 8.6 g/dL Hematocrit 26.5 % Bedside Glucose 192 mg/dl Assessment and Plan Patient with osteomyelitis of the left foot with Acinetobacter and Enterococcus , as well as with subsequent development of C difficile colitis. I would continue patient on levofloxacin and amoxicillin, but would consider change to oral levofloxacin.. Patient should continue on vancomycin, and I would recommend prolonged tapering course given ongoing need for antibiotics. We will continue to follow.
[2016-12-08] MEDS: INSULIN GLARGINE SOLOSTAR 100 UNITS/ML 3 ML PEN SC SCH (21:58)
[2016-12-08] MEDS: QUETIAPINE FUMARATE 25 MG TAB PO SCH (21:58)
[2016-12-08] MEDS: ACETAMINOPHEN 325 MG TAB PO PRN (21:59)
[2016-12-08] MEDS: ATORVASTATIN 10 MG TAB PO SCH (22:00)
[2016-12-09] VITALS (7 sets, daily range): BP systolic 141–160; BP diastolic 48–76; PULSE 57–63; TEMP 36.4–37.8; O2SAT 96–99
[2016-12-09] MEDS: SODIUM CHLORIDE 0.45% 1000ML 1,000 ML IV SCH (01:32)
[2016-12-09] MEDS: LEVOTHYROXINE 50 MCG TAB PO SCH (05:46)
[2016-12-09 07:15] LABS: CREATININE 2.6 mg/dl (0.60-1.20)
[2016-12-09] MEDS: CHECK CLONIDINE PATCH PLACEMENT SCH ×2 (08:00→15:33)
[2016-12-09] MEDS: CARVEDILOL 12.5 MG TAB PO SCH ×2 (08:00→21:27)
[2016-12-09] MEDS: AMOXICILLIN 500 MG CAP PO SCH ×2 (08:42→21:30)
[2016-12-09] MEDS: FUROSEMIDE 40 MG TAB PO SCH (08:43)
[2016-12-09] MEDS: POTASSIUM CHLORIDE 20 MEQ TABCR PO SCH ×2 (08:43→21:29)
[2016-12-09] MEDS: CLOPIDOGREL BISULFATE 75 MG TAB PO SCH (08:45)
[2016-12-09] MEDS: FERROUS GLUCONATE 324 MG TAB PO SCH ×2 (08:46→21:29)
[2016-12-09] MEDS: AMLODIPINE BESYLATE 5 MG TAB PO SCH (08:46)
[2016-12-09] MEDS: ASPIRIN 81 MG ECTAB PO SCH (08:46)
[2016-12-09] MEDS: LACTOBACILLUS ACIDOPHILUS (FLORANEX) TAB PO SCH ×3 (08:47→16:50)
[2016-12-09] MEDS: SACCHAROMYCES BOUL (FLORASTOR) 250 MG CAP PO SCH (08:47)
[2016-12-09] MEDS: MULTIVITAMIN TAB PO SCH (08:47)
[2016-12-09] MEDS: ALLOPURINOL 300 MG TAB PO SCH (08:47)
[2016-12-09] MEDS: CALCIUM 600MG + VIT D 400 IU TAB PO SCH (08:48)
[2016-12-09] MEDS: RASPBERRY SYRUP 5 ML UDP PO SCH ×4 (08:48→21:27)
[2016-12-09] MEDS: CHOLECALCIFEROL 1000 INTER.UNIT TAB PO SCH ×2 (08:48→21:30)
[2016-12-09] MEDS: VANCOMYCIN HCL 125 MG/2.5ML SOLN PO SCH ×4 (08:49→21:27)
[2016-12-09] MEDS: INSULIN ASPART 100 UNITS/ML 3 ML PEN SC SCH ×4 (09:00→21:36)
[2016-12-09] MEDS: EUCERIN CR 120 GM JAR EXT SCH ×2 (09:02→21:37)
[2016-12-09 10:49] LABS: BUN/CREATININE RATIO 12.9 (10-20); CREATININE 2.7 mg/dl (0.60-1.20); POTASSIUM 4.2 mmol/L (3.5-5.1)
[2016-12-09 11:31] LABS: CALCIUM 8.6 mg/dl (8.5-10.1)
--- NOTE | 2016-12-09 15:21 | Progress Note ---
Subjective Date of Service: Dec 09, 2016. Subjective Pt evaluation today including: conversation w/ patient, conversation w/ family (son), physical exam, lab review, review of inpatient medication list Pain: pain in legs, hips PO Intake: poor Voiding: prieto catheter in place noted fever yesterday, unsure of cause as she is on appropriate antibiotics examined wound, appears clean, will ask wound care to comment requested ID to comment as well no diarrhea for days so C diff treated adequately patient is coherent today, just c/o weakness updated son, explained reason for keeping in hospital and he agrees with plan Problem List Medical Problems: (1) Fall Status: Acute (2) Hyperglycemia Status: Acute (3) Renal failure Status: Acute Review of Systems Constitutional: + weakness, + fatigue Musculoskeletal: + joint pain (left foot, hips and pelvis) Neurologic: + weakness, + balance problems All Other Systems: Reviewed and Negative Medications Current Inpatient Medications Medications (Trade) Dose Ordered Sig/Sandra Route Start Time Stop Time Status Last Admin Dose Admin Acetaminophen (Tylenol Tab) 650 mg Q4H PRN PO 11/27/16 06:30 12/27/16 06:29 12/08/16 21:59 650 MG Ondansetron HCl (Zofran Inj) 4 mg Q6H PRN IV 11/27/16 06:30 12/27/16 06:29 12/03/16 04:11 4 MG Insulin Aspart (novoLOG ASPART) SLIDING SCALE If C... ACHS SC 11/27/16 07:15 12/27/16 07:14 12/09/16 12:37 7 UNITS Glucose (Glucose 40% Gel) UD PRN PO 11/27/16 06:30 12/27/16 06:29 Glucose (Glucose Chew Tab) 1 tabs UD PRN PO 11/27/16 06:30 12/27/16 06:29 Dextrose (Dextrose 50% 50ML Syringe) 50 ml UD PRN IV 11/27/16 06:30 12/27/16 06:29 Glucagon (Glucagon Inj) 1 mg UD PRN SQ 11/27/16 06:30 12/27/16 06:29 Allopurinol (Zyloprim Tab) 300 mg DAILY PO 11/27/16 09:00 12/27/16 08:59 12/09/16 08:47 300 MG Aspirin (Ecotrin Tab) 81 mg DAILY PO 11/27/16 09:00 12/27/16 08:59 12/09/16 08:46 81 MG Atorvastatin Calcium (Lipitor Tab) 10 mg QPM PO 11/27/16 21:00 12/27/16 20:59 12/08/16 22:00 10 MG Carvedilol (Coreg Tab) 37.5 mg BID PO 11/27/16 09:00 12/27/16 08:59 12/08/16 22:00 37.5 MG Cholecalciferol (Vitamin D Tab) 2,000 inter.unit BID PO 11/27/16 09:00 12/27/16 08:59 12/09/16 08:48 2,000 INTER.UNIT Clonidine HCl (Xnkatciz-Mjm-0 0.1mg/24hr Patch) 1 patch Q7D TD 12/01/16 07:00 12/31/16 06:59 12/08/16 09:25 1 PATCH Clopidogrel Bisulfate (plAVix TAB) 75 mg DAILY PO 11/27/16 09:00 12/27/16 08:59 12/09/16 08:45 75 MG Ferrous Gluconate (Ferrous Gluconate Tab) 324 mg BID PO 11/27/16 09:00 12/27/16 08:59 12/09/16 08:46 324 MG Furosemide (Lasix Tab) 40 mg DAILY PO 11/27/16 09:00 12/27/16 08:59 12/09/16 08:43 40 MG Insulin Glargine (Lantus Solostar Pen) 16 unit QPM SC 11/27/16 21:00 12/27/16 20:59 12/08/16 21:58 16 UNIT Levothyroxine Sodium (Synthroid Tab) 50 mcg DAILYBB PO 11/27/16 07:30 12/27/16 07:29 12/09/16 05:46 50 MCG Multivitamins (Multivitamin Tab) 1 tab DAILY PO 11/27/16 09:00 12/27/16 08:59 12/09/16 08:47 1 TAB Calcium/Vitamin D (Caltrate Plus Tab) 1 tab DAILY PO 11/27/16 09:00 12/27/16 08:59 12/09/16 08:48 1 TAB Miscellaneous (Remove Clonidine Patch) 1 ea Q7D N/A 12/01/16 08:00 12/31/16 07:59 12/08/16 09:24 1 EA Miscellaneous Information (Check Clonidine Patch Placement) 1 ea QS N/A 11/27/16 08:00 12/27/16 07:59 12/09/16 08:00 1 EA Multi-Ingredient Ointment (Eucerin Unscented Cr) 1 appln BID EXT 11/27/16 21:00 12/27/16 20:59 12/09/16 09:02 1 APPLN Levofloxacin (Consult) 1 ea UD PRN N/A 12/02/16 10:45 01/21/17 10:44 Amoxicillin (Amoxil Cap) 500 mg Q12 PO 12/02/16 21:00 01/21/17 10:59 12/09/16 08:42 500 MG Saccharomyces Boulardii (Florastor Cap) 250 mg DAILY PO 12/03/16 08:00 01/02/17 07:59 12/09/16 08:47 250 MG Lactobacillus Acidophilus (Floranex Tab) 4 tab TIDM PO 12/03/16 08:00 01/02/17 07:59 12/09/16 12:44 4 TAB Vancomycin HCl (Vancomycin Oral Soln) 125 mg QID PO 12/05/16 12:00 12/19/16 11:59 12/09/16 12:44 125 MG Raspberry (Raspberry Syrup 5ml Cup) 5 ml QID PO 12/05/16 12:00 12/19/16 11:59 12/09/16 12:44 5 ML Quetiapine Fumarate (seroQUEL TAB) 25 mg HS PO 12/05/16 21:00 01/04/17 20:59 12/08/16 21:58 25 MG Potassium Chloride (Klor-Con Tab) 20 meq BID PO 12/06/16 20:00 01/05/17 19:59 12/09/16 08:43 20 MEQ Amlodipine Besylate (Norvasc Tab) 10 mg DAILY PO 12/08/16 09:30 01/07/17 09:29 12/09/16 08:46 10 MG Levofloxacin (Levaquin Tab) 500 mg Q2D@1100 PO 12/10/16 11:00 01/21/17 10:59 Enteral Nutritional Formula (Boost Glucose Control) 1 can TIDM PO 12/09/16 17:00 01/08/17 16:59 Objective Vital Signs Date Time Temp Pulse Resp B/P (MAP) Pulse Ox O2 Delivery O2 Flow Rate FiO2 12/09/16 11:15 37.2 58 20 156/76 (102) 98 12/09/16 08:00 Room Air 12/09/16 07:34 36.6 58 16 152/74 (100) 98 12/09/16 04:03 36.9 58 18 160/75 (103) 97 Room Air 12/09/16 00:00 37.8 63 18 152/70 (97) 96 Room Air 12/09/16 00:00 Room Air 12/08/16 19:41 38.1 64 18 174/69 (104) 96 Room Air 12/08/16 16:22 98 Room Air 12/08/16 15:45 37.9 59 22 182/65 (104) 94 Room Air Physical Exam General Appearance: WD/WN, no apparent distress Neck: supple, no adenopathy, no JVD, trachea midline Respiratory/Chest: chest non-tender, lungs clear, normal breath sounds, no respiratory distress, no accessory muscle use Cardiovascular: regular rate, rhythm, no edema, no gallop, no JVD, no murmur Abdomen: normal bowel sounds, non tender, soft, no organomegaly Extremities: normal inspection, no pedal edema, no calf tenderness, normal capillary refill, pelvis stable, + pertinent finding (hips, pelvis tender, left sluice tender) 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, alert, normal mood/affect, oriented x 3, + motor weakness (generalized) Skin: normal color, warm/dry, no rash, + pertinent finding (left plantar wound - clean, no oozing or bleeding, no signs of cellulitis) Laboratory Results Last 24 Hours Test 12/08/16 16:38 12/08/16 20:20 12/09/16 06:02 12/09/16 07:30 Bedside Glucose 192 mg/dl 182 mg/dl 136 mg/dl Creatinine 2.60 mg/dl Est Creatinine Clear Calc Drug Dose 15.4 ml/min Estimated GFR () 19.4 Estimated GFR (Non- 16.7 Test 12/09/16 09:38 12/09/16 11:13 Sodium Level 140 mmol/L Potassium Level 4.2 mmol/L Chloride Level 111 mmol/L Carbon Dioxide Level 20 mmol/L Anion Gap 9.0 mmol/L Blood Urea Nitrogen 35 mg/dl Creatinine 2.70 mg/dl Est Creatinine Clear Calc Drug Dose 14.8 ml/min Estimated GFR () 18.5 Estimated GFR (Non- 16.0 BUN/Creatinine Ratio 12.9 Random Glucose 168 mg/dl Calcium Level 8.6 mg/dl Bedside Glucose 178 mg/dl Assessment and Plan 81 F with fall and left knee pain, with no acute fractures but multiple chronic and some non healing fractures seen in hip and pelvis, foot ulcer noted on presentation DM foot infection: febrile at 38.1 yesterday? unclear etiology wound is clean, no bleeding, no cellulitis and appears to be improving, will ask wound care to comment 2 separate blood cultures negative, wound cultures growing Acinetobacter, ID consulted MRI suggests osteomyelitis ID recommends Levaquin and Amoxicillin for the osteomyelitis Bedside debridement with Dr. Johnson on 11/28, going to try conservative management to prevent amputation, follow in clinic weekly would need amputation if conservative care not successful C diff toxin positive: Vancomycin PO 125mg, continue this for prolonged course while on oral antibiotics for osteomyelitis clinically the diarrhea is improved Fever: isolated event, osteomyelitis and C diff should be adequately treated will work up further is she has another fever Weakness PT/OT/social media marketing analyst: Patient would likely benefit from inpatient rehabilitation stay, especially given pelvic fractures pain control. patient prefers [facility] with Ryan Howe as back up will be here over the weekend, look for authorization Monday/Monday Diabetes mellitus/hyperglycemia: Controlled with Lantus 16 units Accu-Cheks before meals and at bedtime with NovoLog coverage per scale. Acute chronic kidney failure stage 3: Cr steady at 2.6, likely her baseline is now in the 2.5-3.0 range improved oral intake today stop fluids today as Na and K are normal will add Boost for better PO intake, nutrition consulted Anemia: likely multifactorial with CKD and ongoing inflammatory state Hb 7.7 yesterday AM and then up to 8.6 in the PM heme check stools ferritin adequate will repeat tomorrow AM Multifactorial encephalopathy: no confusion today, thinking very clearly confusion was waxing and waning, likely caused by poor sleep, infections, pain, possible baseline memory issues continue Seroquel 25mg HS, helps with sleep and improving orientation Hypokalemia: resolved Hypertension: Amlodipine 2.5 mg by mouth daily, atenolol 12.5 mg by mouth daily , and aspirin 81 mg by mouth daily. Hold furosemide 40 mg and losartan Hypercholesterolemia: Atorvastatin 80 mg by mouth daily. Hypothyroidism: Levothyroxine sodium 50 g by mouth daily. GERD: Omeprazole 20 mg by mouth daily to pantoprazole 40 mg by mouth daily. Gout: Allopurinol 300 mg by mouth daily. PT/OT recs for SNF vs rehab, will try for [facility] Monday/Monday Continued [facility] stay due to: multiple IV medications needed Discharge planning: rehab hospital
[2016-12-09] MEDS: ACETAMINOPHEN 325 MG TAB PO PRN (15:31)
[2016-12-09] MEDS: BOOST GLUCOSE CONTROL PO SCH (16:52)
[2016-12-09] MEDS: QUETIAPINE FUMARATE 25 MG TAB PO SCH (21:31)
[2016-12-09] MEDS: ATORVASTATIN 10 MG TAB PO SCH (21:32)
[2016-12-09] MEDS: INSULIN GLARGINE SOLOSTAR 100 UNITS/ML 3 ML PEN SC SCH (21:36)
[2016-12-10] VITALS (9 sets, daily range): BP systolic 150–178; BP diastolic 51–86; PULSE 55–62; TEMP 36.6–37.7; O2SAT 97–99
[2016-12-10] MEDS: CHECK CLONIDINE PATCH PLACEMENT SCH ×3 (00:24→16:16)
[2016-12-10] MEDS: ACETAMINOPHEN 325 MG TAB PO PRN ×2 (04:16→18:25)
[2016-12-10] MEDS: LEVOTHYROXINE 50 MCG TAB PO SCH (05:43)
[2016-12-10 06:10] LABS: BASO % 0.2 %; BASO ABS # 0.02 K/uL (0-0.2); EOS % 4.9 %; HEMATOCRIT 25.4 % (37-47); IG% 1.8 %; LYMPH % 18.7 %; MEAN CORPUSCULAR HEMOGLOBIN 28.7 pg (25-34); MEAN CORPUSCULAR HGB CONC 31.5 g/dl (32-36); MEAN PLATELET VOLUME 8.7 fL (7.4-10.4); MONO % 5.2 %; NEUT % 69.2 %; PLATELET COUNT 556 K/uL (130-400); RED BLOOD COUNT 2.79 M/uL (4.2-5.4); WHITE BLOOD COUNT 10.18 K/uL (4.8-10.8)
[2016-12-10 06:50] LABS: BUN/CREATININE RATIO 13.8 (10-20); CALCIUM 8.5 mg/dl (8.5-10.1); CREATININE 2.8 mg/dl (0.60-1.20); POTASSIUM 4.7 mmol/L (3.5-5.1)
[2016-12-10 07:07] LABS: COMPLETE YES
[2016-12-10] MEDS: EUCERIN CR 120 GM JAR EXT SCH ×2 (07:54→20:00)
[2016-12-10] MEDS: FERROUS GLUCONATE 324 MG TAB PO SCH ×2 (07:55→21:23)
[2016-12-10] MEDS: RASPBERRY SYRUP 5 ML UDP PO SCH ×4 (07:55→21:24)
[2016-12-10] MEDS: VANCOMYCIN HCL 125 MG/2.5ML SOLN PO SCH ×4 (07:55→21:23)
[2016-12-10] MEDS: CLOPIDOGREL BISULFATE 75 MG TAB PO SCH (07:56)
[2016-12-10] MEDS: ALLOPURINOL 300 MG TAB PO SCH (07:56)
[2016-12-10] MEDS: LACTOBACILLUS ACIDOPHILUS (FLORANEX) TAB PO SCH ×3 (07:56→17:19)
[2016-12-10] MEDS: ASPIRIN 81 MG ECTAB PO SCH (07:56)
[2016-12-10] MEDS: AMLODIPINE BESYLATE 5 MG TAB PO SCH (07:56)
[2016-12-10] MEDS: CALCIUM 600MG + VIT D 400 IU TAB PO SCH (07:57)
[2016-12-10] MEDS: POTASSIUM CHLORIDE 20 MEQ TABCR PO SCH ×2 (07:57→21:27)
[2016-12-10] MEDS: CARVEDILOL 12.5 MG TAB PO SCH ×2 (07:57→21:26)
[2016-12-10] MEDS: MULTIVITAMIN TAB PO SCH (07:58)
[2016-12-10] MEDS: CHOLECALCIFEROL 1000 INTER.UNIT TAB PO SCH ×2 (07:58→21:27)
[2016-12-10] MEDS: SACCHAROMYCES BOUL (FLORASTOR) 250 MG CAP PO SCH (07:58)
[2016-12-10] MEDS: FUROSEMIDE 40 MG TAB PO SCH (07:58)
[2016-12-10] MEDS: AMOXICILLIN 500 MG CAP PO SCH ×2 (07:58→21:26)
[2016-12-10] MEDS: INSULIN ASPART 100 UNITS/ML 3 ML PEN SC SCH ×4 (09:26→21:31)
[2016-12-10] MEDS: BOOST GLUCOSE CONTROL PO SCH ×3 (09:26→17:18)
[2016-12-10] MEDS: LEVOFLOXACIN 500 MG TAB PO SCH (11:58)
--- NOTE | 2016-12-10 15:50 | Progress Note ---
Subjective Date of Service: Dec 10, 2016. Subjective Pt evaluation today including: conversation w/ patient, physical exam, lab review, review of inpatient medication list Pain: less pain today PO Intake: improving, drinking Boost Voiding: prieto catheter in place patient more alert today, oriented, denies severe pain wound care looked at foot, wound is improving Problem List Medical Problems: (1) Fall Status: Acute (2) Hyperglycemia Status: Acute (3) Renal failure Status: Acute Review of Systems Constitutional: + weakness, + fatigue Musculoskeletal: + joint pain Neurologic: + memory loss, + weakness, + balance problems Skin: + problem reported (foot wound) All Other Systems: Reviewed and Negative Medications Current Inpatient Medications Medications (Trade) Dose Ordered Sig/Sandra Route Start Time Stop Time Status Last Admin Dose Admin Acetaminophen (Tylenol Tab) 650 mg Q4H PRN PO 11/27/16 06:30 12/27/16 06:29 12/10/16 04:16 650 MG Ondansetron HCl (Zofran Inj) 4 mg Q6H PRN IV 11/27/16 06:30 12/27/16 06:29 12/03/16 04:11 4 MG Insulin Aspart (novoLOG ASPART) SLIDING SCALE If C... ACHS SC 11/27/16 07:15 12/27/16 07:14 12/10/16 12:45 7 UNITS Glucose (Glucose 40% Gel) UD PRN PO 11/27/16 06:30 12/27/16 06:29 Glucose (Glucose Chew Tab) 1 tabs UD PRN PO 11/27/16 06:30 12/27/16 06:29 Dextrose (Dextrose 50% 50ML Syringe) 50 ml UD PRN IV 11/27/16 06:30 12/27/16 06:29 Glucagon (Glucagon Inj) 1 mg UD PRN SQ 11/27/16 06:30 12/27/16 06:29 Allopurinol (Zyloprim Tab) 300 mg DAILY PO 11/27/16 09:00 12/27/16 08:59 12/10/16 07:56 300 MG Aspirin (Ecotrin Tab) 81 mg DAILY PO 11/27/16 09:00 12/27/16 08:59 12/10/16 07:56 81 MG Atorvastatin Calcium (Lipitor Tab) 10 mg QPM PO 11/27/16 21:00 12/27/16 20:59 12/09/16 21:32 10 MG Carvedilol (Coreg Tab) 37.5 mg BID PO 11/27/16 09:00 12/27/16 08:59 12/10/16 07:57 37.5 MG Cholecalciferol (Vitamin D Tab) 2,000 inter.unit BID PO 11/27/16 09:00 12/27/16 08:59 12/10/16 07:58 2,000 INTER.UNIT Clonidine HCl (Sdkyugzx-Fac-5 0.1mg/24hr Patch) 1 patch Q7D TD 12/01/16 07:00 12/31/16 06:59 12/08/16 09:25 1 PATCH Clopidogrel Bisulfate (plAVix TAB) 75 mg DAILY PO 11/27/16 09:00 12/27/16 08:59 12/10/16 07:56 75 MG Ferrous Gluconate (Ferrous Gluconate Tab) 324 mg BID PO 11/27/16 09:00 12/27/16 08:59 12/10/16 07:55 324 MG Furosemide (Lasix Tab) 40 mg DAILY PO 11/27/16 09:00 12/27/16 08:59 12/10/16 07:58 40 MG Insulin Glargine (Lantus Solostar Pen) 16 unit QPM SC 11/27/16 21:00 12/27/16 20:59 12/09/16 21:36 16 UNIT Levothyroxine Sodium (Synthroid Tab) 50 mcg DAILYBB PO 11/27/16 07:30 12/27/16 07:29 12/10/16 05:43 50 MCG Multivitamins (Multivitamin Tab) 1 tab DAILY PO 11/27/16 09:00 12/27/16 08:59 12/10/16 07:58 1 TAB Calcium/Vitamin D (Caltrate Plus Tab) 1 tab DAILY PO 11/27/16 09:00 12/27/16 08:59 12/10/16 07:57 1 TAB Miscellaneous (Remove Clonidine Patch) 1 ea Q7D N/A 12/01/16 08:00 12/31/16 07:59 12/08/16 09:24 1 EA Miscellaneous Information (Check Clonidine Patch Placement) 1 ea QS N/A 11/27/16 08:00 7/4/17 07:59 12/10/16 07:55 1 EA Multi-Ingredient Ointment (Eucerin Unscented Cr) 1 appln BID EXT 11/27/16 21:00 12/27/16 20:59 12/10/16 07:54 1 APPLN Levofloxacin (Consult) 1 ea UD PRN N/A 12/02/16 10:45 01/21/17 10:44 Amoxicillin (Amoxil Cap) 500 mg Q12 PO 12/02/16 21:00 01/21/17 10:59 12/10/16 07:58 500 MG Saccharomyces Boulardii (Florastor Cap) 250 mg DAILY PO 12/03/16 08:00 01/02/17 07:59 12/10/16 07:58 250 MG Lactobacillus Acidophilus (Floranex Tab) 4 tab TIDM PO 12/03/16 08:00 01/02/17 07:59 12/10/16 11:58 4 TAB Vancomycin HCl (Vancomycin Oral Soln) 125 mg QID PO 12/05/16 12:00 12/19/16 11:59 12/10/16 11:59 125 MG Raspberry (Raspberry Syrup 5ml Cup) 5 ml QID PO 12/05/16 12:00 12/19/16 11:59 12/10/16 11:59 5 ML Quetiapine Fumarate (seroQUEL TAB) 25 mg HS PO 12/05/16 21:00 01/04/17 20:59 12/09/16 21:31 25 MG Potassium Chloride (Klor-Con Tab) 20 meq BID PO 12/06/16 20:00 01/05/17 19:59 12/10/16 07:57 20 MEQ Amlodipine Besylate (Norvasc Tab) 10 mg DAILY PO 12/08/16 09:30 01/07/17 09:29 12/10/16 07:56 10 MG Levofloxacin (Levaquin Tab) 500 mg Q2D@1100 PO 12/10/16 11:00 01/21/17 10:59 12/10/16 11:58 500 MG Enteral Nutritional Formula (Boost Glucose Control) 1 can TIDM PO 12/09/16 17:00 01/08/17 16:59 12/10/16 12:39 1 CAN Objective Vital Signs Date Time Temp Pulse Resp B/P (MAP) Pulse Ox O2 Delivery O2 Flow Rate FiO2 12/10/16 15:36 36.6 55 17 150/69 (96) 99 Room Air 12/10/16 11:24 36.7 57 18 169/81 (110) 98 Room Air 12/10/16 09:15 97 Room Air 12/10/16 07:42 37.2 56 19 150/70 (96) 97 Room Air 12/10/16 05:18 37.4 60 20 172/74 (106) Room Air 12/10/16 04:31 37.7 62 20 170/86 (114) 98 Room Air 12/10/16 00:18 37.1 61 18 178/51 (93) 98 Room Air 12/10/16 00:00 Room Air 12/09/16 19:34 36.6 60 17 148/75 (99) 98 Room Air 12/09/16 16:00 99 Room Air Physical Exam General Appearance: WD/WN, no apparent distress Neck: supple, no adenopathy, no JVD, trachea midline Respiratory/Chest: chest non-tender, lungs clear, normal breath sounds, no respiratory distress, no accessory muscle use Cardiovascular: regular rate, rhythm, no edema, no gallop, no JVD, no murmur Abdomen: normal bowel sounds, non tender, soft, no organomegaly Extremities: normal inspection, no pedal edema, no calf tenderness, normal capillary refill, pelvis stable, + pertinent finding (decreased ROM, tender) 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, alert, normal mood/affect, oriented x 3, + motor weakness (weakness) Skin: + pertinent finding (left foot wound, dry, improving, no surrounding erythema) Laboratory Results Last 24 Hours Test 12/09/16 16:35 12/09/16 20:20 12/10/16 05:33 12/10/16 07:52 Bedside Glucose 168 mg/dl 248 mg/dl 139 mg/dl White Blood Count 10.18 K/uL Red Blood Count 2.79 M/uL Hemoglobin 8.0 g/dL Hematocrit 25.4 % Mean Corpuscular Volume 91.0 fL Mean Corpuscular Hemoglobin 28.7 pg Mean Corpuscular Hemoglobin Concent 31.5 g/dl Platelet Count 556 K/uL Mean Platelet Volume 8.7 fL Neutrophils (%) (Auto) 69.2 % Lymphocytes (%) (Auto) 18.7 % Monocytes (%) (Auto) 5.2 % Eosinophils (%) (Auto) 4.9 % Basophils (%) (Auto) 0.2 % Neutrophils # (Auto) 7.05 K/uL Lymphocytes # (Auto) 1.90 K/uL Monocytes # (Auto) 0.53 K/uL Eosinophils # (Auto) 0.50 K/uL Basophils # (Auto) 0.02 K/uL RDW Standard Deviation 48.2 fL RDW Coefficient of Variation 14.3 % Immature Granulocyte % (Auto) 1.8 % Immature Granulocyte # (Auto) 0.18 K/uL Red Blood Cell Morphology Unremarkable Sodium Level 140 mmol/L Potassium Level 4.7 mmol/L Chloride Level 110 mmol/L Carbon Dioxide Level 21 mmol/L Anion Gap 9.0 mmol/L Blood Urea Nitrogen 39 mg/dl Creatinine 2.80 mg/dl Est Creatinine Clear Calc Drug Dose 14.3 ml/min Estimated GFR () 17.7 Estimated GFR (Non- 15.3 BUN/Creatinine Ratio 13.8 Random Glucose 136 mg/dl Calcium Level 8.5 mg/dl Test 12/10/16 11:41 Bedside Glucose 198 mg/dl Assessment and Plan 81 F with fall and left knee pain, with no acute fractures but multiple chronic and some non healing fractures seen in hip and pelvis, foot ulcer noted on presentation DM foot infection: febrile at 38.1 two days ago, no fever yesterday or today, unclear etiology of fever wound is clean, no bleeding, no cellulitis and appears to be improving, wound care agrees that it is improving 2 separate blood cultures negative, wound cultures growing Acinetobacter, ID consulted MRI suggests osteomyelitis ID recommends Levaquin and Amoxicillin for the osteomyelitis Bedside debridement with Dr. Johnson on 11/28, going to try conservative management to prevent amputation, follow in clinic would need amputation if conservative care not successful C diff toxin positive: Vancomycin PO 125mg, continue this for prolonged course while on oral antibiotics for osteomyelitis clinically the diarrhea is improved Fever: isolated event, osteomyelitis and C diff should be adequately treated will work up further is she has another fever, none since 12/08 Weakness PT/OT/secondary social studies teacher: Patient would likely benefit from inpatient rehabilitation stay, especially given pelvic fractures pain control. patient prefers [facility] with Ryan Howe as back up will be here over the weekend, look for authorization Monday/Monday will need to get PT/OT jeffrey tomorrow Diabetes mellitus/hyperglycemia: Controlled with Lantus 16 units Accu-Cheks before meals and at bedtime with NovoLog coverage per scale. Acute chronic kidney failure stage 3: Cr steady, likely her baseline is now in the 2.5-3.0 range improved oral intake today stop fluids yesterday as Na and K are normal will add Boost for better PO intake, nutrition consulted, tolerating Boost Anemia: likely multifactorial with CKD and ongoing inflammatory state Hb 8.0 today, continue to follow, no need for transfusion heme check stools ferritin adequate Multifactorial encephalopathy: no confusion today, thinking very clearly confusion was waxing and waning, likely caused by poor sleep, infections, pain, possible baseline memory issues continue Seroquel 25mg HS, helps with sleep and improving orientation Hypokalemia: resolved Hypertension: Amlodipine 2.5 mg by mouth daily, atenolol 12.5 mg by mouth daily , and aspirin 81 mg by mouth daily. resume Lasix and Losartan Hypercholesterolemia: Atorvastatin 80 mg by mouth daily. Hypothyroidism: Levothyroxine sodium 50 g by mouth daily. GERD: Omeprazole 20 mg by mouth daily to pantoprazole 40 mg by mouth daily. Gout: Allopurinol 300 mg by mouth daily. PT/OT recs for SNF vs rehab, will try for [facility] Monday/Monday Continued [facility] stay due to: multiple IV medications needed Discharge planning: rehab hospital
[2016-12-10] MEDS: ATORVASTATIN 10 MG TAB PO SCH (21:24)
[2016-12-10] MEDS: QUETIAPINE FUMARATE 25 MG TAB PO SCH (21:24)
[2016-12-10] MEDS: INSULIN GLARGINE SOLOSTAR 100 UNITS/ML 3 ML PEN SC SCH (21:30)
[2016-12-11] VITALS (7 sets, daily range): BP systolic 153–172; BP diastolic 62–79; PULSE 56–61; TEMP 36.4–37.4; O2SAT 94–97
[2016-12-11] MEDS: CHECK CLONIDINE PATCH PLACEMENT SCH ×3 (00:22→16:14)
[2016-12-11] MEDS: LEVOTHYROXINE 50 MCG TAB PO SCH (06:06)
--- NOTE | 2016-12-11 06:57 | DIAGNOSTIC IMAGING REPORT ---
LEFT UPPER EXTREMITY VENOUS DOPPLER HISTORY: Left arm swelling and pain COMPARISON STUDY: None. FINDINGS: The left internal jugular vein is patent. There is normal flow within the left subclavian vein. There is normal flow and compressibility within the left axillary, basilic, brachial, radial, ulnar, and visualized cephalic veins. IMPRESSION: No DVT within the left upper extremity. Electronically signed by: Sreedhar Grey M.D. 12/11/2016 6:56 AM Dictated Date/Time: 12/11/2016 6:55 AM
[2016-12-11 07:45] LABS: BASO % 0.4 %; BASO ABS # 0.04 K/uL (0-0.2); EOS % 4.5 %; IG% 1.8 %; LYMPH ABS # 1.39 K/uL (1.2-3.4); MEAN CELL VOLUME 90.9 fL (80-100); MEAN CORPUSCULAR HEMOGLOBIN 27.3 pg (25-34); MEAN PLATELET VOLUME 8.5 fL (7.4-10.4); MONO % 5.7 %; NEUT % 74.6 %; PLATELET COUNT 584 K/uL (130-400); RED BLOOD COUNT 2.97 M/uL (4.2-5.4); WHITE BLOOD COUNT 10.71 K/uL (4.8-10.8)
[2016-12-11 08:10] LABS: BUN/CREATININE RATIO 15.4 (10-20); CREATININE 2.8 mg/dl (0.60-1.20)
[2016-12-11 08:11] LABS: COMPLETE YES
--- NOTE | 2016-12-11 08:26 | DIAGNOSTIC IMAGING REPORT ---
LEFT FOREARM 2 VIEWS HISTORY: Left forearm swelling and pain COMPARISON: None. FINDINGS: There is no fracture or dislocation. Diffuse soft tissue swelling. No radiopaque foreign bodies. IMPRESSION: No fractures. Diffuse soft tissue swelling. Electronically signed by: Sreedhar Grey M.D. 12/11/2016 8:25 AM Dictated Date/Time: 12/11/2016 8:23 AM
--- NOTE | 2016-12-11 08:27 | DIAGNOSTIC IMAGING REPORT ---
LEFT SHOULDER 3 VIEWS HISTORY: Left shoulder swelling and pain COMPARISON: None. 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 No acute fracture or dislocation. Heterotopic ossification inferior to the glenohumeral joint. The left clavicle is intact. Old, healed left rib fractures. IMPRESSION: No acute fracture or dislocation within the left shoulder. Electronically signed by: Sreedhar Grey M.D. 12/11/2016 8:26 AM Dictated Date/Time: 12/11/2016 8:25 AM
[2016-12-11 08:28] LABS: CALCIUM 8.6 mg/dl (8.5-10.1)
[2016-12-11] MEDS: BOOST GLUCOSE CONTROL PO SCH ×3 (08:37→16:29)
[2016-12-11] MEDS: CARVEDILOL 12.5 MG TAB PO SCH ×2 (08:40→21:38)
[2016-12-11] MEDS: EUCERIN CR 120 GM JAR EXT SCH ×2 (08:40→21:43)
[2016-12-11] MEDS: CALCIUM 600MG + VIT D 400 IU TAB PO SCH (08:40)
[2016-12-11] MEDS: POTASSIUM CHLORIDE 20 MEQ TABCR PO SCH ×2 (08:41→21:34)
[2016-12-11] MEDS: FERROUS GLUCONATE 324 MG TAB PO SCH ×2 (08:41→21:34)
[2016-12-11] MEDS: LACTOBACILLUS ACIDOPHILUS (FLORANEX) TAB PO SCH ×3 (08:41→16:30)
[2016-12-11] MEDS: SACCHAROMYCES BOUL (FLORASTOR) 250 MG CAP PO SCH (08:41)
[2016-12-11] MEDS: FUROSEMIDE 40 MG TAB PO SCH (08:41)
[2016-12-11] MEDS: ASPIRIN 81 MG ECTAB PO SCH (08:41)
[2016-12-11] MEDS: CHOLECALCIFEROL 1000 INTER.UNIT TAB PO SCH ×2 (08:42→21:39)
[2016-12-11] MEDS: MULTIVITAMIN TAB PO SCH (08:42)
[2016-12-11] MEDS: RASPBERRY SYRUP 5 ML UDP PO SCH ×4 (08:42→21:33)
[2016-12-11] MEDS: VANCOMYCIN HCL 125 MG/2.5ML SOLN PO SCH ×4 (08:42→21:32)
[2016-12-11] MEDS: CLOPIDOGREL BISULFATE 75 MG TAB PO SCH (08:42)
[2016-12-11] MEDS: AMLODIPINE BESYLATE 5 MG TAB PO SCH (08:42)
[2016-12-11] MEDS: AMOXICILLIN 500 MG CAP PO SCH ×2 (08:43→21:33)
[2016-12-11] MEDS: ALLOPURINOL 300 MG TAB PO SCH (08:43)
[2016-12-11] MEDS: INSULIN ASPART 100 UNITS/ML 3 ML PEN SC SCH ×4 (08:58→21:41)
--- NOTE | 2016-12-11 14:54 | Progress Note ---
Subjective Date of Service: Dec 11, 2016. Subjective Pt evaluation today including: conversation w/ patient, physical exam, lab review, review of studies, review of inpatient medication list Pain: diffuse pain in legs, left shoulder PO Intake: adequate Voiding: incontinence (chronic) patient had some increased left arm pain last night, could not raise left arm US negative for DVT X-ray shoulder and forearm negative for fractures or dislocations other than left arm pain, patient is okay, no fever, eating better prieto pulled and she has incontinence but this is chronic will get PT/OT today and try for insurance authorization tomorrow Problem List Medical Problems: (1) Fall Status: Acute (2) Hyperglycemia Status: Acute (3) Renal failure Status: Acute Review of Systems Constitutional: + weakness, + fatigue Musculoskeletal: + joint pain (legs, hips, left arm (shoulder)) Female : + incontinence Neurologic: + weakness, + balance problems All Other Systems: Reviewed and Negative Medications Current Inpatient Medications Medications (Trade) Dose Ordered Sig/Sandra Route Start Time Stop Time Status Last Admin Dose Admin Acetaminophen (Tylenol Tab) 650 mg Q4H PRN PO 11/27/16 06:30 12/27/16 06:29 12/10/16 18:25 650 MG Ondansetron HCl (Zofran Inj) 4 mg Q6H PRN IV 11/27/16 06:30 12/27/16 06:29 12/03/16 04:11 4 MG Insulin Aspart (novoLOG ASPART) SLIDING SCALE If C... ACHS SC 11/27/16 07:15 12/27/16 07:14 12/11/16 12:44 7 UNITS Glucose (Glucose 40% Gel) UD PRN PO 11/27/16 06:30 12/27/16 06:29 Glucose (Glucose Chew Tab) 1 tabs UD PRN PO 11/27/16 06:30 12/27/16 06:29 Dextrose (Dextrose 50% 50ML Syringe) 50 ml UD PRN IV 11/27/16 06:30 12/27/16 06:29 Glucagon (Glucagon Inj) 1 mg UD PRN SQ 11/27/16 06:30 12/27/16 06:29 Allopurinol (Zyloprim Tab) 300 mg DAILY PO 11/27/16 09:00 12/27/16 08:59 12/11/16 08:43 300 MG Aspirin (Ecotrin Tab) 81 mg DAILY PO 11/27/16 09:00 12/27/16 08:59 12/11/16 08:41 81 MG Atorvastatin Calcium (Lipitor Tab) 10 mg QPM PO 11/27/16 21:00 12/27/16 20:59 12/10/16 21:24 10 MG Carvedilol (Coreg Tab) 37.5 mg BID PO 11/27/16 09:00 12/27/16 08:59 12/10/16 21:26 37.5 MG Cholecalciferol (Vitamin D Tab) 2,000 inter.unit BID PO 11/27/16 09:00 12/27/16 08:59 12/11/16 08:42 2,000 INTER.UNIT Clonidine HCl ([id number] 0.1mg/24hr Patch) 1 patch Q7D TD 12/01/16 07:00 12/31/16 06:59 12/08/16 09:25 1 PATCH Clopidogrel Bisulfate (plAVix TAB) 75 mg DAILY PO 11/27/16 09:00 12/27/16 08:59 12/11/16 08:42 75 MG Ferrous Gluconate (Ferrous Gluconate Tab) 324 mg BID PO 11/27/16 09:00 12/27/16 08:59 12/11/16 08:41 324 MG Furosemide (Lasix Tab) 40 mg DAILY PO 11/27/16 09:00 12/27/16 08:59 12/11/16 08:41 40 MG Insulin Glargine (Lantus Solostar Pen) 16 unit QPM SC 11/27/16 21:00 12/27/16 20:59 12/10/16 21:30 16 UNIT Levothyroxine Sodium (Synthroid Tab) 50 mcg DAILYBB PO 11/27/16 07:30 12/27/16 07:29 12/11/16 06:06 50 MCG Multivitamins (Multivitamin Tab) 1 tab DAILY PO 11/27/16 09:00 12/27/16 08:59 12/11/16 08:42 1 TAB Calcium/Vitamin D (Caltrate Plus Tab) 1 tab DAILY PO 11/27/16 09:00 12/27/16 08:59 12/11/16 08:40 1 TAB Miscellaneous (Remove Clonidine Patch) 1 ea Q7D N/A 12/01/16 08:00 12/31/16 07:59 12/08/16 09:24 1 EA Miscellaneous Information (Check Clonidine Patch Placement) 1 ea QS N/A 11/27/16 08:00 12/27/16 07:59 12/11/16 08:36 1 EA Multi-Ingredient Ointment (Eucerin Unscented Cr) 1 appln BID EXT 11/27/16 21:00 12/27/16 20:59 12/11/16 08:40 1 APPLN Levofloxacin (Consult) 1 ea UD PRN N/A 12/02/16 10:45 01/21/17 10:44 Amoxicillin (Amoxil Cap) 500 mg Q12 PO 12/02/16 21:00 01/21/17 10:59 12/11/16 08:43 500 MG Saccharomyces Boulardii (Florastor Cap) 250 mg DAILY PO 12/03/16 08:00 01/02/17 07:59 12/11/16 08:41 250 MG Lactobacillus Acidophilus (Floranex Tab) 4 tab TIDM PO 12/03/16 08:00 01/02/17 07:59 12/11/16 12:39 4 TAB Vancomycin HCl (Vancomycin Oral Soln) 125 mg QID PO 12/05/16 12:00 12/19/16 11:59 12/11/16 12:39 125 MG Raspberry (Raspberry Syrup 5ml Cup) 5 ml QID PO 12/05/16 12:00 12/19/16 11:59 12/11/16 12:39 5 ML Quetiapine Fumarate (seroQUEL TAB) 25 mg HS PO 12/05/16 21:00 01/04/17 20:59 12/10/16 21:24 25 MG Potassium Chloride (Klor-Con Tab) 20 meq BID PO 12/06/16 20:00 01/05/17 19:59 12/11/16 08:41 20 MEQ Amlodipine Besylate (Norvasc Tab) 10 mg DAILY PO 12/08/16 09:30 01/07/17 09:29 12/11/16 08:42 10 MG Levofloxacin (Levaquin Tab) 500 mg Q2D@1100 PO 12/10/16 11:00 01/21/17 10:59 12/10/16 11:58 500 MG Enteral Nutritional Formula (Boost Glucose Control) 1 can TIDM PO 12/09/16 17:00 01/08/17 16:59 12/11/16 12:39 1 CAN Objective Vital Signs Date Time Temp Pulse Resp B/P (MAP) Pulse Ox O2 Delivery O2 Flow Rate FiO2 12/11/16 12:06 36.9 56 16 159/62 (94) 97 12/11/16 11:46 Room Air 12/11/16 07:45 36.4 56 18 157/69 (98) 97 Room Air 12/11/16 04:00 37.4 58 18 172/71 (104) 97 Room Air 12/11/16 01:14 36.7 60 19 170/73 (105) 97 Room Air 12/11/16 00:00 Room Air 12/10/16 19:42 36.8 58 18 161/69 (99) 98 Room Air 12/10/16 16:00 99 Room Air 12/10/16 15:36 36.6 55 17 150/69 (96) 99 Room Air Physical Exam General Appearance: WD/WN, no apparent distress Neck: supple, no adenopathy, no JVD, trachea midline Respiratory/Chest: chest non-tender, lungs clear, normal breath sounds, no respiratory distress, no accessory muscle use Cardiovascular: regular rate, rhythm, no edema, no gallop, no JVD, no murmur Abdomen: normal bowel sounds, non tender, soft, no organomegaly Extremities: normal inspection, no pedal edema, no calf tenderness, normal capillary refill, pelvis stable, + pertinent finding (left shoulder with tenderness on movement, cannot abduct past 90 degrees, slight frozen shoulder) Neurologic/Psychiatric: science analyst II-XII nml as tested, alert, normal mood/affect, oriented x 3, + motor weakness (generalized, cannot ambulate) Skin: normal color, warm/dry, no rash Laboratory Results LEFT SHOULDER 3 VIEWS HISTORY: Left shoulder swelling and pain COMPARISON: None. 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 No acute fracture or dislocation. Heterotopic ossification inferior to the glenohumeral joint. The left clavicle is intact. Old, healed left rib fractures. IMPRESSION: No acute fracture or dislocation within the left shoulder. LEFT FOREARM 2 VIEWS HISTORY: Left forearm swelling and pain COMPARISON: None. FINDINGS: There is no fracture or dislocation. Diffuse soft tissue swelling. No radiopaque foreign bodies. IMPRESSION: No fractures. Diffuse soft tissue swelling. Last 24 Hours Test 12/10/16 16:51 12/10/16 19:55 12/11/16 07:15 12/11/16 07:38 Bedside Glucose 173 mg/dl 173 mg/dl 163 mg/dl White Blood Count 10.71 K/uL Red Blood Count 2.97 M/uL Hemoglobin 8.1 g/dL Hematocrit 27.0 % Mean Corpuscular Volume 90.9 fL Mean Corpuscular Hemoglobin 27.3 pg Mean Corpuscular Hemoglobin Concent 30.0 g/dl Platelet Count 584 K/uL Mean Platelet Volume 8.5 fL Neutrophils (%) (Auto) 74.6 % Lymphocytes (%) (Auto) 13.0 % Monocytes (%) (Auto) 5.7 % Eosinophils (%) (Auto) 4.5 % Basophils (%) (Auto) 0.4 % Neutrophils # (Auto) 8.00 K/uL Lymphocytes # (Auto) 1.39 K/uL Monocytes # (Auto) 0.61 K/uL Eosinophils # (Auto) 0.48 K/uL Basophils # (Auto) 0.04 K/uL RDW Standard Deviation 48.1 fL RDW Coefficient of Variation 14.4 % Immature Granulocyte % (Auto) 1.8 % Immature Granulocyte # (Auto) 0.19 K/uL Red Blood Cell Morphology Unremarkable Sodium Level 139 mmol/L Potassium Level 5.0 mmol/L Chloride Level 109 mmol/L Carbon Dioxide Level 22 mmol/L Anion Gap 8.0 mmol/L Blood Urea Nitrogen 43 mg/dl Creatinine 2.80 mg/dl Est Creatinine Clear Calc Drug Dose 14.3 ml/min Estimated GFR () 17.7 Estimated GFR (Non- 15.3 BUN/Creatinine Ratio 15.4 Random Glucose 143 mg/dl Calcium Level 8.6 mg/dl Magnesium Level 2.0 mg/dl Test 12/11/16 11:47 Bedside Glucose 216 mg/dl Assessment and Plan 81 F with fall and left knee pain, with no acute fractures but multiple chronic and some non healing fractures seen in hip and pelvis, foot ulcer noted on presentation DM foot infection: febrile at 38.1 three days ago, no further fevers, unclear cause but not due to osteomyelitis wound is clean, no bleeding, no cellulitis and appears to be improving, wound care agrees that it is improving 2 separate blood cultures negative, wound cultures growing Acinetobacter, ID consulted MRI suggests osteomyelitis ID recommends Levaquin and Amoxicillin for the osteomyelitis would prescribe at least a 4 weeks course, should follow up with Dr. López in a few weeks and can be prescribed longer if needed Bedside debridement with Dr. Johnson on 11/28, going to try conservative management to prevent amputation should follow in wound clinic weekly would need amputation if conservative care not successful but that would be last resort at this point C diff toxin positive: Vancomycin PO 125mg, continue this for prolonged course while on oral antibiotics for osteomyelitis clinically the diarrhea is resolved Fever: isolated event, osteomyelitis and C diff should be adequately treated will work up further is she has another fever, none since 12/08 Weakness: Patient would benefit from inpatient rehabilitation stay, especially given pelvic fractures pain control. patient prefers [facility] with [facility] as back up requested up to date PT/OT today, apply for insurance auth for [facility] tomorrow Left shoulder pain: patient says it started after the fall at home but she never complained until last evening no fractures or dislocations, no DVT would recommend continued therapy to increase ROM on exam, shoulder feels slightly frozen but would certainly try to treat conservatively at this time Diabetes mellitus/hyperglycemia: Controlled with Lantus 16 units Accu-Cheks before meals and at bedtime with NovoLog coverage per scale. chronic kidney failure stage 3: Cr steady, likely her baseline is now in the 2.5 -3.0 range improved oral intake over the past several days no further fluids at this time will add Boost for better PO intake, nutrition consulted, tolerating Boost Anemia: likely multifactorial with CKD and ongoing inflammatory state Hb 8.1 today, continue to follow, no need for transfusion heme check stools ferritin adequate Multifactorial encephalopathy: no confusion today, thinking very clearly, has been resolved for several days confusion was waxing and waning, likely caused by poor sleep, infections, pain, possible baseline memory issues continue Seroquel 25mg HS, helps with sleep and improving orientation would continue the Seroquel on discharge since going to an unfamiliar environment Hypokalemia: resolved Hypertension: Amlodipine 2.5 mg by mouth daily, atenolol 12.5 mg by mouth daily , and aspirin 81 mg by mouth daily. resume Lasix Hypercholesterolemia: Atorvastatin 80 mg by mouth daily. Hypothyroidism: Levothyroxine sodium 50 g by mouth daily. GERD: Omeprazole 20 mg by mouth daily to pantoprazole 40 mg by mouth daily. Gout: Allopurinol 300 mg by mouth daily. PT/OT recs for SNF vs rehab, will try for [facility] Monday/Monday for discharge, patient needs to be on Amoxicillin, Levaquin, Vancomycin PO, Seroqul needs follow up with wound clinic weekly Dr. López in a few weeks to determine if conservative care will be sufficient for osteomyelitis Continued [facility] stay due to: multiple IV medications needed Discharge planning: rehab hospital
[2016-12-11] MEDS: ACETAMINOPHEN 325 MG TAB PO PRN (16:29)
[2016-12-11] MEDS: QUETIAPINE FUMARATE 25 MG TAB PO SCH (21:34)
[2016-12-11] MEDS: ATORVASTATIN 10 MG TAB PO SCH (21:36)
[2016-12-11] MEDS: INSULIN GLARGINE SOLOSTAR 100 UNITS/ML 3 ML PEN SC SCH (21:40)
[2016-12-12] VITALS (8 sets, daily range): BP systolic 146–181; BP diastolic 54–73; PULSE 55–61; TEMP 36.6–37.4; O2SAT 96–97
[2016-12-12] MEDS: CHECK CLONIDINE PATCH PLACEMENT SCH ×3 (00:16→16:21)
[2016-12-12] MEDS: LEVOTHYROXINE 50 MCG TAB PO SCH (05:54)
[2016-12-12] MEDS: BOOST GLUCOSE CONTROL PO SCH ×3 (09:23→17:42)
[2016-12-12] MEDS: ASPIRIN 81 MG ECTAB PO SCH (09:24)
[2016-12-12] MEDS: CALCIUM 600MG + VIT D 400 IU TAB PO SCH (09:24)
[2016-12-12] MEDS: FERROUS GLUCONATE 324 MG TAB PO SCH ×2 (09:24→20:57)
[2016-12-12] MEDS: CARVEDILOL 12.5 MG TAB PO SCH ×2 (09:24→20:00)
[2016-12-12] MEDS: MULTIVITAMIN TAB PO SCH (09:25)
[2016-12-12] MEDS: LACTOBACILLUS ACIDOPHILUS (FLORANEX) TAB PO SCH ×3 (09:25→17:36)
[2016-12-12] MEDS: FUROSEMIDE 40 MG TAB PO SCH (09:25)
[2016-12-12] MEDS: POTASSIUM CHLORIDE 20 MEQ TABCR PO SCH (09:25)
[2016-12-12] MEDS: SACCHAROMYCES BOUL (FLORASTOR) 250 MG CAP PO SCH (09:25)
[2016-12-12] MEDS: CLOPIDOGREL BISULFATE 75 MG TAB PO SCH (09:26)
[2016-12-12] MEDS: AMOXICILLIN 500 MG CAP PO SCH ×2 (09:26→21:00)
[2016-12-12] MEDS: ALLOPURINOL 300 MG TAB PO SCH (09:26)
[2016-12-12] MEDS: VANCOMYCIN HCL 125 MG/2.5ML SOLN PO SCH ×4 (09:26→20:58)
[2016-12-12] MEDS: CHOLECALCIFEROL 1000 INTER.UNIT TAB PO SCH ×2 (09:26→20:59)
[2016-12-12] MEDS: AMLODIPINE BESYLATE 5 MG TAB PO SCH (09:26)
[2016-12-12] MEDS: RASPBERRY SYRUP 5 ML UDP PO SCH ×4 (09:26→20:58)
[2016-12-12] MEDS: INSULIN ASPART 100 UNITS/ML 3 ML PEN SC SCH ×4 (09:30→21:08)
[2016-12-12] MEDS: EUCERIN CR 120 GM JAR EXT SCH ×2 (09:31→21:01)
[2016-12-12] MEDS ORDERED: CLONIDINE HCL 0.2 MG/24 HR TRANSDERM SYS TD SCH (12:00)
[2016-12-12] MEDS: LEVOFLOXACIN 500 MG TAB PO SCH (12:19)
[2016-12-12] MEDS: ACETAMINOPHEN 325 MG TAB PO PRN ×2 (12:20→16:25)
[2016-12-12] MEDS: LIDODERM (LIDOCAINE) PATCH 5% TD SCH (12:37)
[2016-12-12] MEDS: ATORVASTATIN 10 MG TAB PO SCH (21:00)
[2016-12-12] MEDS: QUETIAPINE FUMARATE 25 MG TAB PO SCH (21:00)
[2016-12-12] MEDS: INSULIN GLARGINE SOLOSTAR 100 UNITS/ML 3 ML PEN SC SCH (21:06)
--- NOTE | 2016-12-12 21:25 | Progress Note ---
Subjective Date of Service: Dec 12, 2016. Subjective Pt evaluation today including: conversation w/ patient, conversation w/ family (daughter), physical exam, chart review, lab review, review of studies (x-ray - - left shoulder; left arm venous duplex ), conversation w/ product support consultant, review of inpatient medication list Pain: left shoulder as well as multiple muscles PO Intake: fair Patient's main complaints include left shoulder pain, left shoulder weakness, and generalized weakness. Difficult for her to even move around in the bed. She has had intermittent confusion while hospitalized but none overnight. Daughter came to bedside - had numerous questions about care plan. Daughter confirms that left shoulder replacement was performed by Dr. Hawkins in the past. Problem List Medical Problems: (1) Fall Status: Acute (2) Hyperglycemia Status: Acute (3) Renal failure Status: Acute Review of Systems Constitutional: No fever Respiratory: + dyspnea on exertion, No dyspnea at rest Cardiac: No chest pain, No orthopnea Abdomen: + diarrhea (but improving), No pain Musculoskeletal: + see HPI, + joint pain Neurologic: No numbness/tingling Objective Vital Signs Date Time Temp Pulse Resp B/P (MAP) Pulse Ox O2 Delivery O2 Flow Rate FiO2 12/12/16 19:36 36.7 55 18 151/73 (99) 97 Room Air 12/12/16 16:04 36.6 57 18 146/73 (97) 97 Room Air 12/12/16 16:00 Room Air 12/12/16 11:55 Room Air 12/12/16 11:30 36.9 59 20 162/70 (100) 97 12/12/16 07:37 37.4 61 16 163/67 (99) 96 Room Air 12/12/16 04:30 37.1 59 18 169/70 (103) 96 Room Air 12/12/16 00:00 97 Room Air 12/11/16 23:28 37.2 61 18 159/79 (105) 97 Room Air Physical Exam General Appearance: no apparent distress ENT: pharynx normal Neck: no JVD Respiratory/Chest: lungs clear, no respiratory distress, no accessory muscle use Cardiovascular: regular rate, rhythm, no gallop, no murmur Abdomen: normal bowel sounds, non tender, soft, no organomegaly Extremities: no pedal edema, + pertinent finding (left shoulder - minimal tenderness to palpation lateral aspect of joint; with passive internal rotation , external rotation, and abduction she reports pain; when asked to abduct the arm she has extreme difficulty doing such, only bringing it out about 20 degrees at most ) Neurologic/Psychiatric: alert, + pertinent finding (slightly confused ) Skin: + pertinent finding (left foot - toes 1,2,3 absent; base of 1st metatarsal with nicely healing ulcer) Laboratory Results Last 24 Hours Test 12/12/16 07:40 12/12/16 11:18 12/12/16 16:50 12/12/16 17:34 Bedside Glucose 154 mg/dl 216 mg/dl 190 mg/dl Stool Occult Blood NEGATIVE Test 12/12/16 20:27 Bedside Glucose 210 mg/dl Assessment and Plan 81yo female with: 1. 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 Continues on current abx (amoxicillin & levaquin for acinetobacter/enterococcus) . Likely 4-6 week course of antibiotics. 2. c diff colitis - continue vancomycin course - defer total treatment amount to ID. 3. left shoulder pain - x-rays with intact shoulder replacement hardware; no clinical evidence of inflammatory arthritis on exam. Doppler negative. Have consulted Dr. Hawkins to see tomorrow for further recommendations. We are limited in medications to use for her given her CKD and intolerance to narcotics. Use lidoderm for now. 4. T2DM, uncontrolled - leave lantus as is - increase carb ratio and correction factor. 5. HTN - uncontrolled - increase clonidine patch to 0.2mg dose. 6. significant weakness - suspect due to severe deconditioning. Recheck CPK and TSH. B12, etc normal. 7. CKD stage 4 - creatinine at baseline; BMP in am for stability. 8. 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 H/H stable. Heme negative stool. Follow. 9. encephalopathy - was likely metabolic from infections - resolved. Try holding seroquel - this could be contributing to weakness (ie causing sedation?). 10. hypercholesterolemia: Atorvastatin 80 mg by mouth daily. Check CPK in am. 11. Hypothyroidism: Levothyroxine sodium 50 g by mouth daily. TSH in 06/2016 was low; recheck AM. 12. GERD - PPI. 13. gout: Allopurinol 300 mg by mouth daily. No symptoms/signs of such. 14. dispo - SNF. [facility] denied by insurance, and PT/OT recommending SNF level of rehab care. 15. DVT proph - heparin BID. daughter extensively updated at bedside today Continued [facility] stay due to: ambulation difficulties Discharge planning: long-term facility
[2016-12-13] VITALS (8 sets, daily range): BP systolic 147–172; BP diastolic 67–84; PULSE 60–86; TEMP 36.7–37.6; O2SAT 95–97
[2016-12-13] MEDS: CHECK CLONIDINE PATCH PLACEMENT SCH ×3 (00:07→16:15)
[2016-12-13] MEDS: ACETAMINOPHEN 325 MG TAB PO PRN ×4 (01:43→21:13)
[2016-12-13] MEDS: LEVOTHYROXINE 50 MCG TAB PO SCH (05:52)
[2016-12-13 06:44] LABS: INR 1.1 (0.9-1.1); PROTHROMBIN TIME (PATIENT) 11.6 SECONDS (9.0-12.0)
[2016-12-13 07:16] LABS: BUN/CREATININE RATIO 17.3 (10-20); CALCIUM 8.3 mg/dl (8.5-10.1); CREATININE 3.3 mg/dl (0.60-1.20); POTASSIUM 5.6 mmol/L (3.5-5.1)
[2016-12-13 07:27] LABS: THYROID STIMULATING HORMONE 0.945 uIu/ml (0.300-4.500)
[2016-12-13] MEDS ORDERED: SODIUM POLYST. SULF SUSP 15G/60ML PO STA (08:02)
[2016-12-13] MEDS: ASPIRIN 81 MG ECTAB PO SCH (08:08)
[2016-12-13] MEDS: BOOST GLUCOSE CONTROL PO SCH ×3 (08:08→17:00)
[2016-12-13] MEDS: CALCIUM 600MG + VIT D 400 IU TAB PO SCH (08:08)
[2016-12-13] MEDS: CARVEDILOL 12.5 MG TAB PO SCH ×2 (08:08→21:01)
[2016-12-13] MEDS: FERROUS GLUCONATE 324 MG TAB PO SCH ×2 (08:08→20:51)
[2016-12-13] MEDS: LACTOBACILLUS ACIDOPHILUS (FLORANEX) TAB PO SCH ×3 (08:09→17:49)
[2016-12-13] MEDS: MULTIVITAMIN TAB PO SCH (08:09)
[2016-12-13] MEDS: FUROSEMIDE 40 MG TAB PO SCH (08:09)
[2016-12-13] MEDS: SACCHAROMYCES BOUL (FLORASTOR) 250 MG CAP PO SCH (08:09)
[2016-12-13] MEDS: VANCOMYCIN HCL 125 MG/2.5ML SOLN PO SCH ×4 (08:10→20:51)
[2016-12-13] MEDS: RASPBERRY SYRUP 5 ML UDP PO SCH ×4 (08:10→20:51)
[2016-12-13] MEDS: ALLOPURINOL 300 MG TAB PO SCH (08:10)
[2016-12-13] MEDS: CHOLECALCIFEROL 1000 INTER.UNIT TAB PO SCH ×2 (08:10→20:52)
[2016-12-13] MEDS: CLOPIDOGREL BISULFATE 75 MG TAB PO SCH (08:10)
[2016-12-13] MEDS: AMLODIPINE BESYLATE 5 MG TAB PO SCH (08:10)
[2016-12-13] MEDS: LIDODERM (LIDOCAINE) PATCH 5% TD SCH (08:11)
[2016-12-13] MEDS: AMOXICILLIN 500 MG CAP PO SCH ×2 (08:11→20:53)
[2016-12-13] MEDS: HEPARIN SOD 5000 UNIT/0.5 ML CARP SQ SCH ×2 (08:15→21:12)
[2016-12-13] MEDS: EUCERIN CR 120 GM JAR EXT SCH ×2 (08:54→20:50)
[2016-12-13] MEDS: INSULIN ASPART 100 UNITS/ML 3 ML PEN SC SCH ×4 (08:56→21:10)
[2016-12-13 13:27] LABS: BUN/CREATININE RATIO 17.3 (10-20); CREATININE 3.2 mg/dl (0.60-1.20)
[2016-12-13 13:37] LABS: CALCIUM 8.7 mg/dl (8.5-10.1)
--- NOTE | 2016-12-13 13:57 | DIAGNOSTIC IMAGING REPORT ---
LUMBAR SPINE 2 OR 3 VIEWS CLINICAL HISTORY: recent fall, lumbar pain, eval for compression fractures trauma COMPARISON STUDY: None FINDINGS: Generalized degenerative disc change. No evidence for compression deformity. Fracture right pubic ring possibly acute/subacute. IMPRESSION: 1. No acute process of the lumbar spine. 2. Potential acute/subacute fracture right pubic ring. Electronically signed by: Gianluca Orantes M.D. 12/13/2016 1:56 PM Dictated Date/Time: 12/13/2016 1:54 PM
--- NOTE | 2016-12-13 13:59 | DIAGNOSTIC IMAGING REPORT ---
LEFT KNEE 3 VIEWS CLINICAL HISTORY: effusion, hardware, pain, previous x-ray w/ ? Fracture trauma. Pain. COMPARISON: None. DISCUSSION: Prior total knee replacement.] Medullary joie within the femur. Fracture distal femoral shaft considered nondisplaced. Moderate soft tissue edema. IMPRESSION: Nondisplaced oblique fracture distal femoral shaft. Pre-existing total knee arthroplasty. Left femoral joie Electronically signed by: Gianluca Orantes M.D. 12/13/2016 1:58 PM Dictated Date/Time: 12/13/2016 1:56 PM
--- NOTE | 2016-12-13 20:37 | CONSULTATION REPORT ---
DATE OF CONSULTATION: 12/13/2016 CHIEF COMPLAINT: 1. Left shoulder pain. 2. Left knee pain. HISTORY OF PRESENT ILLNESS: Ms. Ricardo is an 81-year-old female, who we were asked to see regarding her left shoulder and left knee. She was admitted approximately 2 weeks ago after a fall. She was having shoulder and knee pain at that time after her fall. She is approximately 10 years out from a left shoulder hemiarthroplasty by Dr. Hawkins done for a fracture of her proximal humerus. She also has a history of a total knee replacement on the left as well as IM nailing of a femur fracture done in the left femur that was about 3 years ago. She during this hospital stay has been treated for a foot infection as well as C. diff. She is complaining again of left shoulder and left knee pain. She does have some pain in her left hand. No other musculoskeletal complaints at this time including neck pain, right upper extremity, or right lower extremity pain. PAST MEDICAL HISTORY, SURGERIES, MEDICATIONS, ALLERGIES: A complete medical history were reviewed in the chart. Please refer to her admission H&P for completeness. PHYSICAL EXAMINATION: GENERAL: She is alert, oriented. She is in no distress. EXTREMITIES: Examination of the left upper extremity, she has a Lidoderm patch on her skin. There is no swelling around the shoulder. She has a scar in her shoulder from previous surgery. She has very limited active motion of her shoulder. She is able to passively raise her arm overhead using her opposite hand. She has pain with movement of her shoulder. She is able to flex and extend her thumb and fingers appropriately. No tenderness around the elbow. She does have some swelling of her hand. Examination of her left lower extremity today: She has a scar around her knee from her previous knee replacement. She does have a mild knee effusion. Tender to palpation around the distal femur in her knee. She has a couple of bandages on the foot and has previous toe amputations. She has pain and difficulty with motion of her knee. We really did not do any flexion. She holds her knee flexed about 10 degrees when we try to extend her knee. She has pain doing so. She is able to dorsiflex and plantarflex appropriately. She has no pain with range of motion of her right lower extremity. IMAGING DATA: X-rays today were reviewed. Numerous x-rays including her hip x-ray including her pelvis which shows a prior healed femur fracture with IM nailing. There is question of some pubic rami fractures. She has a total knee replacement as well. The x-rays obtained today which were reviewed of her knee, there is a lucency in the distal femur at the tip of the IM nail extending to the knee replacement, it is a nondisplaced fracture. X-rays of the shoulder and forearm were reviewed. The shoulder x-ray shows a previous hemiarthroplasty of the left shoulder. There is some calcification around the prosthesis around the humeral head. There is no acute fracture seen. No dislocation. Forearm x-rays showed no fracture around the forearm, wrist or any obvious fractures of the hand. IMPRESSION: 1. Left shoulder pain with previous hemiarthroplasty done for a fracture approximately 10 years ago. There is no acute fracture or dislocations likely rotator cuff injury. 2. Left distal femur fracture, nondisplaced around a distal end of intramedullary nail and total knee replacement. PLAN: She was seen and examined by Dr. Hawkins today as well. We recommend continue conservative management of these above problems. Regarding her shoulder, there is no obvious fractures, no dislocation of the prosthesis. She does likely have a rotator cuff injury, but again we would recommend to continue conservative management at this time. Regarding her distal femur fracture, would recommend nonweightbearing to the left lower extremity. She can toe-touch weightbear on this for transfers, but otherwise remain nonweightbearing. We did order a knee immobilizer and I would recommend that she is wearing the immobilizer and no knee range of motion. Thank you for this consult and please call with any further questions at [phone].
[2016-12-13] MEDS: ATORVASTATIN 10 MG TAB PO SCH (20:54)
[2016-12-13] MEDS: INSULIN GLARGINE SOLOSTAR 100 UNITS/ML 3 ML PEN SC SCH (21:11)
[2016-12-14] VITALS (8 sets, daily range): BP systolic 133–164; BP diastolic 65–76; PULSE 60–64; TEMP 36.6–37.1; O2SAT 95–97
[2016-12-14] MEDS: ACETAMINOPHEN 325 MG TAB PO PRN ×3 (01:27→18:42)
--- NOTE | 2016-12-14 05:39 | Progress Note ---
Subjective Date of Service: late entry for visit on Dec 13, 2016. Subjective Pt evaluation today including: conversation w/ patient, conversation w/ family (son by phone), physical exam, chart review, lab review, review of studies (x- rays of left knee and back), conversation w/ outreach consultant (orthopedics - multiple calls), review of inpatient medication list Pain: now reporting low back pain and also left leg pain PO Intake: fair Voiding: incontinence patient reports low back pain "since I fell a few weeks ago" she cannot recall if she has mentioned this to any physician she also complaints of pain in her left hip and knee still with pain in left shoulder denies dyspnea denies cough denies abd pain Problem List Medical Problems: (1) Fall Status: Acute (2) Hyperglycemia Status: Acute (3) Renal failure Status: Acute Review of Systems Constitutional: No fever, No chills Respiratory: No cough, No sputum Cardiac: No chest pain, No orthopnea Abdomen: No pain Objective Vital Signs Date Time Temp Pulse Resp B/P (MAP) Pulse Ox O2 Delivery O2 Flow Rate FiO2 12/14/16 03:46 37.1 60 18 162/70 (100) 97 Room Air 12/14/16 00:00 Room Air 12/13/16 23:02 37.6 65 18 166/69 (101) 95 Room Air 12/13/16 20:59 65 155/67 (96) 12/13/16 20:00 Room Air 12/13/16 19:57 36.9 74 18 147/69 (95) 97 Room Air 12/13/16 16:40 Room Air 12/13/16 15:33 37.2 60 16 171/77 (108) 97 Room Air 12/13/16 12:01 36.7 86 18 169/84 (112) 96 12/13/16 10:01 Room Air 12/13/16 07:18 37.0 64 18 172/72 (105) 95 Physical Exam General Appearance: no apparent distress, + pertinent finding (mild intermittent confusion) ENT: pharynx normal Neck: no JVD Respiratory/Chest: lungs clear, no respiratory distress, no accessory muscle use Cardiovascular: regular rate, rhythm, no gallop, no murmur Abdomen: normal bowel sounds, non tender, soft, no organomegaly Extremities: + pedal edema (trace b/l ) Neurologic/Psychiatric: alert, + pertinent finding (very poor historian with mild confusion ) Skin: + pertinent finding (left foot - toes 1-3 absent; based of 1st metatarsal clean, no drainage, wound covered with aquacel ) Comments: musculo: back - mild tenderness to palpation over l-spine. left hip - active/passive ROM with flexion/extension causes pain left knee - mild joint effusion, knee replacement scar; ANY movement of the knee causes pain; she keeps the left leg mildly flexed and externally rotated. left shoulder - still with pain to palpation; no significant change in exam. left hand with mild swelling. left wrist - ?mild synovitis? Laboratory Results Last 24 Hours Test 12/13/16 05:55 12/13/16 07:45 12/13/16 11:37 12/13/16 12:40 Prothrombin Time 11.6 SECONDS Prothromb Time International Ratio 1.1 Sodium Level 139 mmol/L 139 mmol/L Potassium Level 5.6 mmol/L 5.0 mmol/L Chloride Level 110 mmol/L 107 mmol/L Carbon Dioxide Level 22 mmol/L 24 mmol/L Anion Gap 7.0 mmol/L 8.0 mmol/L Blood Urea Nitrogen 57 mg/dl 56 mg/dl Creatinine 3.30 mg/dl 3.20 mg/dl Est Creatinine Clear Calc Drug Dose 12.6 ml/min 13.0 ml/min Estimated GFR () 14.5 15.1 Estimated GFR (Non- 12.6 13.0 BUN/Creatinine Ratio 17.3 17.3 Random Glucose 136 mg/dl 187 mg/dl Calcium Level 8.3 mg/dl 8.7 mg/dl Total Creatine Kinase 33 U/L Thyroid Stimulating Hormone (TSH) 0.945 uIu/ml Bedside Glucose 159 mg/dl 197 mg/dl Erythrocyte Sedimentation Rate > 90 mm/hr Uric Acid 4.0 mg/dl Test 12/13/16 16:51 12/13/16 20:11 12/14/16 04:44 Bedside Glucose 204 mg/dl 236 mg/dl Assessment and Plan 81yo female with: 1. 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 Continues on current abx (levaquin & amox, respectively, for acinetobacter/ enterococcus). Likely 4-6 week course of antibiotics. Defer management to ID. 2. c diff colitis - continue vancomycin course - defer total treatment amount to ID. Day #9 of vanco by mouth. 3. left shoulder pain - x-rays with intact shoulder replacement hardware; no clinical evidence of inflammatory arthritis on exam. Doppler negative. Have consulted Dr. Hawkins to check the shoulder. Use lidoderm for now. 4. T2DM, uncontrolled - leave lantus as is but again increase carb ratio and correction factor today. 5. HTN - uncontrolled but just increase the clonidine patch to 0.2mg dose and no adjustments today. 6. significant weakness - suspect due to severe deconditioning. CPK, TSH, and b12 all normal. 7. CKD stage 4 - creatinine slightly worse today; repeat in AM. 8. 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 H/H stable. Heme negative stool. Follow. 9. encephalopathy - ongoing - likely multifactorial causes in setting of infection, pain, prolonged hospital stay, etc. 10. hypercholesterolemia: Atorvastatin 80 mg by mouth daily. Check CPK in am. 11. Hypothyroidism: Levothyroxine sodium 50 g by mouth daily. TSH normal. 12. GERD - PPI. 13. gout: Allopurinol 300 mg by mouth daily. ?gout left hand or shoulder? Check sed rate, uric acid. 14. left distal femur fracture - x-rays today confirm distal oblique nondisplaced Fx. Dr. Hawkins recommending NWB status to LLE and immobilizer. Nonoperative Rx. 15. back pain - lspine x-rays neg for compression fracture. Symptom control. 16. DVT proph - heparin BID. 17. dispo - SNF. [facility] denied by insurance, and PT/OT recommending SNF level of rehab care. accepted at [facility] but pt's son wants us to "check with Ryan Howe again about a bed" will inform SW in am 18. hyperkalemia - iatrogenic - had been receiving potassium supplement in setting of her CKD. K supplement stopped yesterday. Kayexalate 30 gm x 1. Repeat K later today was NORMAL. daughter extensively updated last pm son #1 updated at bedside today son #2 updated by phone evening of 12/13/16 Continued [facility] stay due to: inadequate oral pain control, ambulation difficulties, home environment unsafe for pt Discharge planning: residential facility
[2016-12-14] MEDS: LEVOTHYROXINE 50 MCG TAB PO SCH (06:33)
[2016-12-14] MEDS: ALLOPURINOL 300 MG TAB PO SCH (08:26)
[2016-12-14] MEDS: AMLODIPINE BESYLATE 5 MG TAB PO SCH (08:27)
[2016-12-14] MEDS: CARVEDILOL 12.5 MG TAB PO SCH ×2 (08:27→19:57)
[2016-12-14] MEDS: ASPIRIN 81 MG ECTAB PO SCH (08:27)
[2016-12-14] MEDS: FERROUS GLUCONATE 324 MG TAB PO SCH ×2 (08:27→19:56)
[2016-12-14] MEDS: SACCHAROMYCES BOUL (FLORASTOR) 250 MG CAP PO SCH (08:27)
[2016-12-14] MEDS: RASPBERRY SYRUP 5 ML UDP PO SCH ×4 (08:28→20:19)
[2016-12-14] MEDS: CHOLECALCIFEROL 1000 INTER.UNIT TAB PO SCH ×2 (08:28→20:20)
[2016-12-14] MEDS: VANCOMYCIN HCL 125 MG/2.5ML SOLN PO SCH ×4 (08:28→20:19)
[2016-12-14] MEDS: LACTOBACILLUS ACIDOPHILUS (FLORANEX) TAB PO SCH ×3 (08:28→17:26)
[2016-12-14] MEDS: CALCIUM 600MG + VIT D 400 IU TAB PO SCH (08:28)
[2016-12-14] MEDS: LIDODERM (LIDOCAINE) PATCH 5% TD SCH (08:29)
[2016-12-14] MEDS: CLOPIDOGREL BISULFATE 75 MG TAB PO SCH (08:29)
[2016-12-14] MEDS: MULTIVITAMIN TAB PO SCH (08:29)
[2016-12-14] MEDS: FUROSEMIDE 40 MG TAB PO SCH (08:29)
[2016-12-14] MEDS: AMOXICILLIN 500 MG CAP PO SCH ×2 (08:30→20:36)
[2016-12-14] MEDS: INSULIN ASPART 100 UNITS/ML 3 ML PEN SC SCH ×4 (08:43→20:33)
[2016-12-14] MEDS: CHECK CLONIDINE PATCH PLACEMENT SCH ×3 (08:44→17:28)
[2016-12-14] MEDS: HEPARIN SOD 5000 UNIT/0.5 ML CARP SQ SCH ×2 (08:44→20:34)
[2016-12-14] MEDS: EUCERIN CR 120 GM JAR EXT SCH ×2 (08:45→20:24)
[2016-12-14] MEDS: BOOST GLUCOSE CONTROL PO SCH ×3 (08:45→17:26)
--- NOTE | 2016-12-14 10:00 | DIAGNOSTIC IMAGING REPORT ---
CHEST ONE VIEW PORTABLE HISTORY: Short of breath. COMPARISON: Chest 12/04/2016. FINDINGS: No pneumothorax. Left shoulder prosthesis. Mild cardiomegaly, trace bilateral pleural effusions, and mild interstitial pulmonary edema. Old, healed left rib fractures. IMPRESSION: No significant change in the cardiomegaly, trace bilateral pleural effusions, and mild interstitial pulmonary edema. Electronically signed by: Sreedhar Grey M.D. 12/14/2016 9:59 AM Dictated Date/Time: 12/14/2016 9:56 AM
[2016-12-14] MEDS: HydrALAZINE 10 MG TAB PO SCH ×2 (10:01→19:55)
--- NOTE | 2016-12-14 10:41 | PROGRESS NOTE ---
DATE: 12/14/2016 DATE: 12/14/2016. SUBJECTIVE: An 81-year-old female admitted status post a fall with multiple underlying medical issues and orthopedic complaints. She is doing relatively well this morning. No new complaints. She states her leg feels a little bit better with the knee immobilizer. OBJECTIVE: VITAL SIGNS: Temperature 36.7. Vital signs stable. PHYSICAL EXAMINATION: LEFT LEG: Reveals the leg to be well aligned. Very tender to palpate. Small knee effusion. She can dorsiflex and plantarflex her foot appropriately. She is neurologically intact. Examination of the left shoulder reveals Lidoderm patch in place. Shoulder is located. She has got pain with any type of shoulder motion. ASSESSMENT: An 81-year-old female with multiple underlying medical comorbidities with: 1. Left nondisplaced distal femur fracture below an IM nail and above a knee replacement. 2. Chronic left foot osteomyelitis status post debridement on antibiotics. 3. Left shoulder pain status post a hemiarthroplasty for fracture. Possible new rotator cuff injury but no fracture, no intervention warranted. PLAN: 1. Left nondisplaced distal femur fracture. Will plan on treating this in a knee immobilizer for the next 6 weeks. She can do a little bit of weightbearing for transfers and that is it. She should be in a knee immobilizer pretty much most of the time. Otherwise, she should be nonweightbearing. I need to see her back in a month. 2. Left shoulder pain. She is status post hemiarthroplasty. Treatment is symptomatic. She can use the arm as tolerated. No intervention needed at this time. 3. Left foot chronic osteomyelitis. She is undergoing oral antibiotic suppression management. The only thing that would ever cure this would be a below knee amputation. 4. Disposition: She is orthopedically stable and acceptable for discharge. I just need to see her back in 4 weeks. She is strictly nonweightbearing on the left leg other than for transfers. Knee immobilizer at all times except for bathing. Any orthopedic questions can be directed to me at [phone].
[2016-12-14] MEDS: LEVOFLOXACIN 500 MG TAB PO SCH (11:47)
[2016-12-14] MEDS ORDERED: BUMETANIDE 1 MG TAB PO ONE (16:30)
[2016-12-14] MEDS: INSULIN GLARGINE SOLOSTAR 100 UNITS/ML 3 ML PEN SC SCH (20:34)
[2016-12-14] MEDS: ATORVASTATIN 10 MG TAB PO SCH (20:37)
[2016-12-15] MEDS: CHECK CLONIDINE PATCH PLACEMENT SCH ×3 (00:15→16:00)
[2016-12-15] MEDS: ACETAMINOPHEN 325 MG TAB PO PRN ×2 (01:49→05:51)
[2016-12-15 04:03] VITALS: BP 156/67; PULSE 61; TEMP 37.1; O2SAT 96
--- NOTE | 2016-12-15 05:11 | Progress Note ---
Subjective Date of Service: Dec 14, 2016. Subjective Pt evaluation today including: conversation w/ patient, physical exam, chart review, lab review, review of inpatient medication list Pain: left shoulder only today PO Intake: fair Voiding: incontinence continues with mild diarrhea c/o weakness left leg pain is better in the immobilizer left shoulder pain is unchanged c/o mild dyspnea with doing too much activity Problem List Medical Problems: (1) Fall Status: Acute (2) Hyperglycemia Status: Acute (3) Renal failure Status: Acute Review of Systems Constitutional: No fever Respiratory: + dyspnea on exertion, No dyspnea at rest Cardiac: No chest pain, No orthopnea Abdomen: No pain Objective Vital Signs Date Time Temp Pulse Resp B/P (MAP) Pulse Ox O2 Delivery O2 Flow Rate FiO2 12/15/16 00:00 Room Air 12/14/16 22:58 37.1 61 20 158/68 (98) 95 Room Air 12/14/16 20:00 Room Air 12/14/16 19:08 37.0 62 20 146/74 (98) 97 Room Air 12/14/16 16:00 95 Room Air 12/14/16 15:21 36.6 63 20 133/65 (87) 95 Room Air 12/14/16 12:02 36.8 61 18 153/76 (101) 96 12/14/16 08:30 95 Room Air 12/14/16 08:23 36.7 64 16 164/73 (103) 95 Room Air 12/14/16 03:46 37.1 60 18 162/70 (100) 97 Room Air Physical Exam General Appearance: no apparent distress ENT: pharynx normal Neck: + pertinent finding (difficult to assess for JVD due to neck size) Respiratory/Chest: no respiratory distress, no accessory muscle use, + decreased breath sounds (bases), + rales (? bases) Cardiovascular: regular rate, rhythm, no gallop Abdomen: normal bowel sounds, non tender, soft, no organomegaly Extremities: no pedal edema, + pertinent finding (left leg in immobilizer; left foot - 1st, 2nd, 3rd toes absent) Neurologic/Psychiatric: alert Skin: + pertinent finding (left 3rd metatarsal head ulceration clean, no drainage) Comments: musculoskeletal - left shoulder - tender with passive or active ROM Laboratory Results Last 24 Hours Test 12/14/16 05:46 12/14/16 07:45 12/14/16 11:39 12/14/16 16:25 Creatinine 3.00 mg/dl Est Creatinine Clear Calc Drug Dose 13.9 ml/min Estimated GFR () 16.3 Estimated GFR (Non- 14.1 Bedside Glucose 140 mg/dl 172 mg/dl 172 mg/dl Test 12/14/16 19:52 12/14/16 21:54 Bedside Glucose 234 mg/dl 226 mg/dl Assessment and Plan 81yo female with: 1. 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 Continues on current abx (levaquin & amox, respectively, for acinetobacter/ enterococcus). Likely 4-6 week course of antibiotics. Defer management to ID. 2. c diff colitis - continue vancomycin course - defer total treatment amount to ID. Day #10 of oral vancomycin. 3. left shoulder pain - x-rays with intact shoulder replacement hardware; no clinical evidence of inflammatory arthritis on exam. Doppler negative. Lidoderm patches prn. exam most c/w tendonitis/rotator cuff injury. 4. T2DM, uncontrolled - if still high in AM then adjust insulins once again. 5. HTN - uncontrolled despite increase in clonidine several days ago. add hydralazine 10mg BID. 6. significant weakness - suspect due to severe deconditioning. CPK, TSH, and b12 all normal. 7. CKD stage 4 - creatinine improved to 3. 8. 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 H/H stable. Heme negative stool. Follow. 9. encephalopathy - appears resolved. 10. hypercholesterolemia: Atorvastatin 80 mg by mouth daily. 11. Hypothyroidism: Levothyroxine sodium 50 g by mouth daily. TSH normal. 12. GERD - PPI. 13. gout: Allopurinol 300 mg by mouth daily. No active gout on exam at this time. 14. left distal femur fracture - Dr. Hawkins recommending NWB status to LLE and immobilizer. Nonoperative Rx. 15. back pain - lspine x-rays neg for compression fracture. Symptom control. 16. DVT proph - heparin BID. 17. hyperkalemia - iatrogenic - resolved. 18. c/o dyspnea - cxr obtained - mild pulmonary edema. this may represent acute/chronic diastolic CHF - give extra bumex this afternoon. 3 children updated over the last 3 days to [place] tomorrow? Continued [facility] stay due to: inadequate oral pain control, ambulation difficulties, home environment unsafe for pt Discharge planning: retirement facility
[2016-12-15] MEDS: LEVOTHYROXINE 50 MCG TAB PO SCH (05:52)
[2016-12-15 06:11] LABS: HEMATOCRIT 26.1 % (37-47); MEAN CELL VOLUME 91.9 fL (80-100); MEAN CORPUSCULAR HEMOGLOBIN 28.9 pg (25-34); MEAN CORPUSCULAR HGB CONC 31.4 g/dl (32-36); MEAN PLATELET VOLUME 8.4 fL (7.4-10.4); PLATELET COUNT 562 K/uL (130-400); RED BLOOD COUNT 2.84 M/uL (4.2-5.4); WHITE BLOOD COUNT 10.18 K/uL (4.8-10.8)
[2016-12-15 06:46] LABS: BUN/CREATININE RATIO 20.8 (10-20); CALCIUM 8.2 mg/dl (8.5-10.1); POTASSIUM 4.4 mmol/L (3.5-5.1)
[2016-12-15 07:53] VITALS: BP 138/69; PULSE 58; TEMP 37.4; O2SAT 97
[2016-12-15] MEDS: CARVEDILOL 12.5 MG TAB PO SCH (08:00)
[2016-12-15] MEDS: CALCIUM 600MG + VIT D 400 IU TAB PO SCH (08:01)
[2016-12-15] MEDS: MULTIVITAMIN TAB PO SCH (08:01)
[2016-12-15] MEDS: ALLOPURINOL 300 MG TAB PO SCH (08:01)
[2016-12-15] MEDS: SACCHAROMYCES BOUL (FLORASTOR) 250 MG CAP PO SCH (08:02)
[2016-12-15] MEDS: FERROUS GLUCONATE 324 MG TAB PO SCH (08:02)
[2016-12-15] MEDS: FUROSEMIDE 40 MG TAB PO SCH (08:02)
[2016-12-15] MEDS: LIDODERM (LIDOCAINE) PATCH 5% TD SCH (08:03)
[2016-12-15] MEDS: AMLODIPINE BESYLATE 5 MG TAB PO SCH (08:04)
[2016-12-15] MEDS: LACTOBACILLUS ACIDOPHILUS (FLORANEX) TAB PO SCH ×2 (08:05→14:15)
[2016-12-15] MEDS: AMOXICILLIN 500 MG CAP PO SCH (08:05)
[2016-12-15] MEDS: CHOLECALCIFEROL 1000 INTER.UNIT TAB PO SCH (08:05)
[2016-12-15] MEDS: RASPBERRY SYRUP 5 ML UDP PO SCH ×2 (08:07→14:15)
[2016-12-15] MEDS: VANCOMYCIN HCL 125 MG/2.5ML SOLN PO SCH ×2 (08:07→14:15)
[2016-12-15] MEDS: HydrALAZINE 10 MG TAB PO SCH (08:08)
[2016-12-15] MEDS: CLOPIDOGREL BISULFATE 75 MG TAB PO SCH (08:08)
[2016-12-15] MEDS: EUCERIN CR 120 GM JAR EXT SCH (08:09)
[2016-12-15] MEDS: HEPARIN SOD 5000 UNIT/0.5 ML CARP SQ SCH (08:14)
[2016-12-15] MEDS: ASPIRIN 81 MG ECTAB PO SCH (08:16)
[2016-12-15] MEDS: BOOST GLUCOSE CONTROL PO SCH ×2 (08:18→14:15)
[2016-12-15] MEDS: INSULIN ASPART 100 UNITS/ML 3 ML PEN SC SCH ×2 (08:41→14:19)
--- NOTE | 2016-12-15 10:42 | Infectious Disease Progress Nt ---
Progress Note Date of Service Dec 15, 2016. Objective Vital Signs Date Time Temp Pulse Resp B/P (MAP) Pulse Ox O2 Delivery O2 Flow Rate FiO2 12/15/16 07:53 37.4 58 16 138/69 (92) 97 Room Air 12/15/16 04:03 37.1 61 20 156/67 (96) 96 Room Air 12/15/16 00:00 Room Air 12/14/16 22:58 37.1 61 20 158/68 (98) 95 Room Air 12/14/16 20:00 Room Air 12/14/16 19:08 37.0 62 20 146/74 (98) 97 Room Air 12/14/16 16:00 95 Room Air 12/14/16 15:21 36.6 63 20 133/65 (87) 95 Room Air 12/14/16 12:02 36.8 61 18 153/76 (101) 96 Laboratory Results Last 24 Hours Test 12/14/16 11:39 12/14/16 16:25 12/14/16 19:52 12/14/16 21:54 Bedside Glucose 172 mg/dl 172 mg/dl 234 mg/dl 226 mg/dl Test 12/15/16 05:53 12/15/16 07:48 12/15/16 10:11 White Blood Count 10.18 K/uL Red Blood Count 2.84 M/uL Hemoglobin 8.2 g/dL Hematocrit 26.1 % Mean Corpuscular Volume 91.9 fL Mean Corpuscular Hemoglobin 28.9 pg Mean Corpuscular Hemoglobin Concent 31.4 g/dl RDW Standard Deviation 48.3 fL RDW Coefficient of Variation 14.4 % Platelet Count 562 K/uL Mean Platelet Volume 8.4 fL Sodium Level 142 mmol/L Potassium Level 4.4 mmol/L Chloride Level 107 mmol/L Carbon Dioxide Level 27 mmol/L Anion Gap 8.0 mmol/L Blood Urea Nitrogen 63 mg/dl Creatinine 3.00 mg/dl Est Creatinine Clear Calc Drug Dose 13.9 ml/min Estimated GFR () 16.3 Estimated GFR (Non- 14.1 BUN/Creatinine Ratio 20.8 Random Glucose 139 mg/dl Calcium Level 8.2 mg/dl Bedside Glucose 155 mg/dl Erythrocyte Sedimentation Rate 80 mm/hr Assessment and Plan Patient with chronic osteomyelitis of the left foot with Acinetobacter and Enterococcus along with subsequent development of C. Diff colitis. The patient is currently on PO Levaquin, Amoxicillin, and Vancomycin. She appears to be improving, but her ESR was >90 2 days ago. This is likely multifactorial with C. Diff and osteo. Will however repeat ESR and also check CRP. Feel that she likely can continue on current regimen upon D/C. Would recommend continuing Levaquin and Amox for at least 6 more weeks pending repeat evaluation by ID and continue PO Vancomycin through abx course and for at least 1-2 more weeks after discontinuation. Thank you
[2016-12-15 11:45] VITALS: BP 141/62; PULSE 61; TEMP 36.6; O2SAT 96
[2016-12-15 15:11] VITALS: BP 141/62; PULSE 61; TEMP 36.6; O2SAT 96
--- NOTE | 2016-12-15 15:26 | Discharge Instructions ---
Discharge Instructions Date of Service Dec 15, 2016. Admission Reason for Admission: S/P Fall, Hyperglycemia, Dehydration Discharge Discharge Diagnosis / Problem: Left Femur Fracture - non-displaced, Left Rotator Cuff Tear; Left Foot Oste Discharge Goals Goal(s): Decrease discomfort, Improve function, Increase independence, Improve disease control, Therapeutic intervention Activity Recommendations Activity Limitations: per Instructions/Follow-up section Weightbearing Status: Left non-weightbearing . Instructions / Follow-Up Instructions / Follow-Up Left Knee Immobilizer at all times except for bathing/hygiene Non-weight bearing left leg. Limit weight-bearing as much as possible during transfers PT for quad sets and straight leg raises on left leg in immobilizer Follow-up with Orthopedics in 4 weeks Left Shoulder - activity as tolerated. Current Hospital Diet Patient's current hospital diet: Diabetes Type 2 Diet, Renal Diet Discharge Diet Recommended Diet: Diabetes Type 2 Diet Pending Studies Studies pending at discharge: no Laboratory Results Hemoglobin A1c Test 10/20/16 11:51 Range/Units Estimated Average Glucose 183 mg/dl Hemoglobin A1c 8.0 H 4.5-5.6 % Lipid Panel Test 10/20/16 11:51 Range/Units Triglycerides Level 316 H 0-150 mg/dl Cholesterol Level 179 0-200 mg/dl HDL Cholesterol 44 mg/dl Cholesterol/HDL Ratio 4.1 LDL Cholesterol, Calculated 72 mg/dl Medical Emergencies . Who to Call and When: Medical Emergencies: If at any time you feel your situation is an emergency, please call 911 immediately. . Non-Emergent Contact Non-Emergency issues call your: Surgeon . "Provider Documentation" section prepared by Aman Hawkins. . VTE Core Measure Inpt VTE Proph given/why not?: Donovan Morrow, SCD's
[2016-12-15 15:49] VITALS: BP 162/69; PULSE 61; TEMP 36.5; O2SAT 96
--- NOTE | 2016-12-15 15:55 | PROGRESS NOTE ---
DATE: 12/15/2016 DATE: 12/15/2016. SUBJECTIVE: An 81-year-old female with multiple comorbidities status post a fall with a left nondisplaced distal femur fracture. She is doing okay. She is in a knee immobilizer. No complaints of pain today. OBJECTIVE: VITAL SIGNS: Temperature 36.6. Vital signs stable. PHYSICAL EXAMINATION: GENERAL: Reveals a pleasant elderly female. She is sitting up in bed and looks pretty comfortable. EXTREMITIES: Examination of left shoulder reveals a well-healed scar in the front of her shoulder. No obvious atrophy. No bruising. She still has limited active motion of her shoulder. Passive motion is without much pain up to 90 degrees. She is neurologically intact otherwise. Examination of the left leg reveals it to be well aligned. She continues to be diffusely tender to palpate. Knee immobilizer is in place. She is neurologically intact. Examination of the left foot reveals the dressing to be in place. This was managed by the wound care center. ASSESSMENT: An 81-year-old female with multiple comorbidities and severe diabetes with: 1. Left distal femur fracture below an IM nail and above a knee replacement. It is nondisplaced and we are treating this conservatively. 2. Left shoulder injury and likely rotator cuff tear. No signs of fracture. 3. Left foot chronic osteomyelitis being managed by the wound clinic. PLAN: With respect to the left femur, we are going to keep her in a knee immobilizer. This should be on most of the time except for bathing and hygiene. I would like to keep her nonweightbearing. I would like to get her doing some transfers and she can put some weight on it for transfers only as absolutely necessary. I will see her back in 4 weeks. With respect to her shoulder, she can progress activities as tolerated. No restrictions at this time. With respect to the foot, she is being managed by wound clinic. She is going to need chronic oral suppression to manage this and wound clinic management. We will leave them manage her foot wound. Any orthopedic questions can be directed to me at [phone].
[2016-12-15] MEDS ORDERED: HPRIS5M SQ (16:04)
[2016-12-15] MEDS ORDERED: VNCS125 PO (16:04)
[2016-12-15] MEDS ORDERED: BUME1TAB PO (16:04)
[2016-12-15] MEDS ORDERED: NVLGI/PEN SQ (16:04)
[2016-12-15] MEDS ORDERED: AMX500 PO (16:04)
[2016-12-15] MEDS ORDERED: CLON0.2D4 TOP (16:04)
[2016-12-15] MEDS ORDERED: APR10 PO (16:04)
[2016-12-15] MEDS ORDERED: LVQ500 PO (16:04)
[2016-12-15] MEDS ORDERED: AMLO-110 PO (16:04)
[2016-12-15] MEDS ORDERED: LDDP5 TD (16:04)
[2016-12-15] MEDS ORDERED: HYDR-5688 PO (16:04)
[2016-12-15] MEDS ORDERED: ACET-1047 PO (16:04)
[2016-12-15] MEDS ORDERED: SACC250C3 PO (16:04)
--- NOTE | 2016-12-15 16:15 | Discharge Instructions ---
Discharge Instructions Date of Service Dec 15, 2016. Admission Reason for Admission: S/P Fall, Hyperglycemia, Dehydration Discharge Discharge Diagnosis / Problem: 1. left foot osteomyelitis. 2. left femur fracture. Discharge Goals Goal(s): Decrease discomfort, Improve function, Increase independence, Improve disease control, Improve nutritional status, Learn about illness, Diagnostic testing, Therapeutic intervention Activity Recommendations Activity Level: Assistance Required Therapies: Physical Therapy, Occupational Therapy Weightbearing Status: Left non-weightbearing Please see the dedicated discharge instructions from Dr. Aman Hawkins for additional information. . Additional Information Patient informed of condition: Yes Advance Directives: Yes DNR: No Level of Care: Skilled Communicable Disease: Yes Prognosis: Stable Oxygen at (LPM): none Nguyen Catheter: No Instructions / Follow-Up Instructions / Follow-Up Follow-up - 1. medical claims assistant of SNF within [address] Aman Hawkins, orthopedics, in 4 weeks 3. [facility] in 1 week 4. [facility] in 1 week Current Hospital Diet Patient's current hospital diet: Diabetes Type 2 Diet, Renal Diet Discharge Diet Recommended Diet: Diabetes Type 2 Diet, Renal Diet Fluid Restriction: 1500 ml (6 cups) Procedures Procedures Performed: MRI of left foot showing osteomyelitis. Bone scan of left foot suspicious for osteomyelitis. x-rays of left leg showing distal femur fracture. Pending Studies Studies pending at discharge: no Physician Orders On Transfer Special Precautions: fall precautions immobilizer to left leg at ALL TIMES Dressing Changes: left foot - aquacel silver to ulcer, then cover with optifoam, and change daily. Vital Signs: daily along with weight Weigh: daily report any weight gain of more than 2-3 pounds in 1-2 days to medical claims assistant Additional Orders: 1. CBC, BMP on AM of 12/17/16 - report results to medical claims assistant. 2. fingerstick blood sugars before meals and at bedtime. POLST Discussion: Not Applicable Laboratory Results Hemoglobin A1c Test 10/20/16 11:51 Range/Units Estimated Average Glucose 183 mg/dl Hemoglobin A1c 8.0 H 4.5-5.6 % Lipid Panel Test 10/20/16 11:51 Range/Units Triglycerides Level 316 H 0-150 mg/dl Cholesterol Level 179 0-200 mg/dl HDL Cholesterol 44 mg/dl Cholesterol/HDL Ratio 4.1 LDL Cholesterol, Calculated 72 mg/dl Medical Emergencies . Who to Call and When: Medical Emergencies: If at any time you feel your situation is an emergency, please call 911 immediately. . Non-Emergent Contact Non-Emergency issues call your: Specialist (medical claims assistant of SNF) Call Non-Emergent contact if: temperature is above 100.5, your pain is not controlled, your pain is worsening, your pain is unusual for you, your pain is concerning you, wound has increased drainage, wound has increased redness, wound has increased pain, you have any medication questions . . "Provider Documentation" section prepared by Winston Borges. . Core Measure Problem Core Measures: None
--- NOTE | 2016-12-15 16:49 | Infectious Disease Progress Nt ---
Progress Note Date of Service Dec 15, 2016. Subjective Pt evaluation today including: conversation w/ patient, physical exam, chart review, lab review, review of studies, conversation w/ internal consultant, review of inpatient medication list Patient states that she is feeling slightly improved. She feels that her bowels are becoming more formed. Her left foot continues have some tenderness. She is tolerating her current antibiotic therapy. I did discuss this patient briefly with Dr. Borges who requested that we follow-up with her prior to discharge. The patient did have a chest x-ray completed yesterday which showed continued cardiomegaly and mild interstitial pulmonary edema. All Other Systems: Reviewed and Negative Medications Current Inpatient Medications Medications (Trade) Dose Ordered Sig/Sandra Route Start Time Stop Time Status Last Admin Dose Admin Acetaminophen (Tylenol Tab) 650 mg Q4H PRN PO 11/27/16 06:30 12/27/16 06:29 12/15/16 05:51 650 MG Ondansetron HCl (Zofran Inj) 4 mg Q6H PRN IV 11/27/16 06:30 12/27/16 06:29 12/03/16 04:11 4 MG Insulin Aspart (novoLOG ASPART) SLIDING SCALE If C... ACHS SC 11/27/16 07:15 12/27/16 07:14 12/15/16 14:19 9 UNITS Glucose (Glucose 40% Gel) UD PRN PO 11/27/16 06:30 12/27/16 06:29 Glucose (Glucose Chew Tab) 1 tabs UD PRN PO 11/27/16 06:30 12/27/16 06:29 Dextrose (Dextrose 50% 50ML Syringe) 50 ml UD PRN IV 11/27/16 06:30 12/27/16 06:29 Glucagon (Glucagon Inj) 1 mg UD PRN SQ 11/27/16 06:30 12/27/16 06:29 Allopurinol (Zyloprim Tab) 300 mg DAILY PO 11/27/16 09:00 12/27/16 08:59 12/15/16 08:01 300 MG Aspirin (Ecotrin Tab) 81 mg DAILY PO 11/27/16 09:00 12/27/16 08:59 12/15/16 08:16 81 MG Atorvastatin Calcium (Lipitor Tab) 10 mg QPM PO 11/27/16 21:00 12/27/16 20:59 12/14/16 20:37 10 MG Carvedilol (Coreg Tab) 37.5 mg BID PO 11/27/16 09:00 12/27/16 08:59 12/14/16 19:57 37.5 MG Cholecalciferol (Vitamin D Tab) 2,000 inter.unit BID PO 11/27/16 09:00 12/27/16 08:59 12/15/16 08:05 2,000 INTER.UNIT Clopidogrel Bisulfate (plAVix TAB) 75 mg DAILY PO 11/27/16 09:00 12/27/16 08:59 12/15/16 08:08 75 MG Ferrous Gluconate (Ferrous Gluconate Tab) 324 mg BID PO 11/27/16 09:00 12/27/16 08:59 12/15/16 08:02 324 MG Furosemide (Lasix Tab) 40 mg DAILY PO 11/27/16 09:00 12/27/16 08:59 12/15/16 08:02 40 MG Insulin Glargine (Lantus Solostar Pen) 16 unit QPM SC 11/27/16 21:00 12/27/16 20:59 12/14/16 20:34 16 UNIT Levothyroxine Sodium (Synthroid Tab) 50 mcg DAILYBB PO 11/27/16 07:30 12/27/16 07:29 12/15/16 05:52 50 MCG Multivitamins (Multivitamin Tab) 1 tab DAILY PO 11/27/16 09:00 12/27/16 08:59 12/15/16 08:01 1 TAB Calcium/Vitamin D (Caltrate Plus Tab) 1 tab DAILY PO 11/27/16 09:00 12/27/16 08:59 12/15/16 08:01 1 TAB Multi-Ingredient Ointment (Eucerin Unscented Cr) 1 appln BID EXT 11/27/16 21:00 12/27/16 20:59 12/15/16 08:09 1 APPLN Levofloxacin (Consult) 1 ea UD PRN N/A 12/02/16 10:45 01/21/17 10:44 Amoxicillin (Amoxil Cap) 500 mg Q12 PO 12/02/16 21:00 01/21/17 10:59 12/15/16 08:05 500 MG Saccharomyces Boulardii (Florastor Cap) 250 mg DAILY PO 12/03/16 08:00 01/02/17 07:59 12/15/16 08:02 250 MG Lactobacillus Acidophilus (Floranex Tab) 4 tab TIDM PO 12/03/16 08:00 01/02/17 07:59 12/15/16 14:15 4 TAB Vancomycin HCl (Vancomycin Oral Soln) 125 mg QID PO 12/05/16 12:00 12/19/16 11:59 12/15/16 14:15 125 MG Raspberry (Raspberry Syrup 5ml Cup) 5 ml QID PO 12/05/16 12:00 12/19/16 11:59 12/15/16 14:15 5 ML Quetiapine Fumarate (seroQUEL TAB) 25 mg HS PO 12/05/16 21:00 01/04/17 20:59 Future Hold 12/11/16 21:34 25 MG Amlodipine Besylate (Norvasc Tab) 10 mg DAILY PO 12/08/16 09:30 01/07/17 09:29 12/15/16 08:04 10 MG Levofloxacin (Levaquin Tab) 500 mg Q2D@1100 PO 12/10/16 11:00 01/21/17 10:59 12/14/16 11:47 500 MG Enteral Nutritional Formula (Boost Glucose Control) 1 can TIDM PO 12/09/16 17:00 01/08/17 16:59 12/15/16 14:15 1 CAN Clonidine HCl (Qzqqdndk-Osp-7 0.2mg/24hr Patch) 1 patch Q7D TD 12/12/16 12:00 01/11/17 11:59 12/12/16 12:37 1 PATCH Miscellaneous (Remove Clonidine Patch) 1 ea Q7D N/A 12/19/16 11:45 01/18/17 11:44 Miscellaneous Information (Check Clonidine Patch Placement) 1 ea QS N/A 12/12/16 16:00 01/11/17 15:59 12/15/16 08:09 1 EA Lidocaine (Lidoderm Patch 5%) 1 patch QAM TD 12/12/16 12:00 01/11/17 11:59 12/15/16 08:03 1 PATCH Miscellaneous (Remove Lidoderm Patch) 1 ea DAILY@21 N/A 12/12/16 21:00 01/11/17 20:59 12/14/16 20:37 1 EA Heparin Sodium (Porcine) (Heparin Sq 5000 Unit/0.5ml) 5,000 unit Q12 SQ 12/13/16 09:00 01/12/17 08:59 12/15/16 08:14 5,000 UNIT Hydralazine HCl (Apresoline Tab) 10 mg BID PO 12/14/16 08:30 01/13/17 08:29 12/15/16 08:08 10 MG Objective Vital Signs Date Time Temp Pulse Resp B/P (MAP) Pulse Ox O2 Delivery O2 Flow Rate FiO2 12/15/16 15:49 36.5 61 17 162/69 (100) 96 Room Air 12/15/16 15:11 36.6 61 18 96 Room Air 12/15/16 11:45 36.6 61 18 141/62 (88) 96 Room Air 12/15/16 10:45 Room Air 12/15/16 07:53 37.4 58 16 138/69 (92) 97 Room Air 12/15/16 04:03 37.1 61 20 156/67 (96) 96 Room Air 12/15/16 00:00 Room Air 12/14/16 22:58 37.1 61 20 158/68 (98) 95 Room Air 12/14/16 20:00 Room Air 12/14/16 19:08 37.0 62 20 146/74 (98) 97 Room Air Physical Exam General Appearance: WD/WN, no apparent distress Eyes: normal inspection, sclerae normal ENT: hearing grossly normal Neck: supple, trachea midline Respiratory/Chest: no respiratory distress, no accessory muscle use Cardiovascular: + pertinent finding (regular rate) Extremities: + pertinent finding (left lower extremity with brace in place. No surrounding erythema of her wound. ) Neurologic/Psychiatric: alert, normal mood/affect Skin: warm/dry, no rash Laboratory Results Last 24 Hours Test 12/14/16 19:52 12/14/16 21:54 12/15/16 05:53 12/15/16 07:48 Bedside Glucose 234 mg/dl 226 mg/dl 155 mg/dl White Blood Count 10.18 K/uL Red Blood Count 2.84 M/uL Hemoglobin 8.2 g/dL Hematocrit 26.1 % Mean Corpuscular Volume 91.9 fL Mean Corpuscular Hemoglobin 28.9 pg Mean Corpuscular Hemoglobin Concent 31.4 g/dl RDW Standard Deviation 48.3 fL RDW Coefficient of Variation 14.4 % Platelet Count 562 K/uL Mean Platelet Volume 8.4 fL Sodium Level 142 mmol/L Potassium Level 4.4 mmol/L Chloride Level 107 mmol/L Carbon Dioxide Level 27 mmol/L Anion Gap 8.0 mmol/L Blood Urea Nitrogen 63 mg/dl Creatinine 3.00 mg/dl Est Creatinine Clear Calc Drug Dose 13.9 ml/min Estimated GFR () 16.3 Estimated GFR (Non- 14.1 BUN/Creatinine Ratio 20.8 Random Glucose 139 mg/dl Calcium Level 8.2 mg/dl Test 12/15/16 10:11 12/15/16 11:43 Erythrocyte Sedimentation Rate 80 mm/hr C-Reactive Protein 5.09 mg/dl Bedside Glucose 181 mg/dl Assessment and Plan Patient with chronic osteomyelitis of the left foot with Acinetobacter and Enterococcus along with subsequent development of C. Diff colitis. The patient is currently on PO Levaquin, Amoxicillin, and Vancomycin. She appears to be improving, but her ESR was >90 2 days ago. This is likely multifactorial with C. Diff and osteo. Will however repeat ESR and also check CRP. Feel that she likely can continue on current regimen upon D/C. Would recommend continuing Levaquin and Amox for at least 6 more weeks pending repeat evaluation by ID and continue PO Vancomycin through abx course and for at least 1-2 more weeks after discontinuation. Thank you Case reviewed and agree with above assessment.
--- NOTE | 2016-12-18 05:39 | Discharge Summary ---
Discharge Summary Date of Service Dec 18, 2016. Discharge Summary Admission Date: Nov 27, 2016 at 05:32 Discharge Date: Dec 15, 2016 Discharge Disposition: alf facility ([facility] ) Principal Diagnosis: osteomyelitis of left foot Problems/Secondary Diagnoses: 1. left distal femur fracture 2. c diff colitis 3. left shoulder pain with previous shoulder arthroplasty 4. T2DM, uncontrolled 5. HTN 6. severe deconditioning. 7. CKD stage 5 - discharge creatinine 3 8. anemia - likely anemia of CKD 9. encephalopathy, metabolic - resolved 10. hypercholesterolemia 11. hypothyroidism 12. GERD 13. gout 14. hyperkalemia - resolved 15. acute/chronic diastolic CHF Immunizations: Have You Had Influenza Vaccine: Yes Influenza Vaccine Date: Mar 26, 2013 History of Tetanus Vaccine?: Unknown History of Pneumococcal: Yes Pneumococcal Date: Apr 15, 2012 History of Hepatitis B Vaccine: Unknown Procedures: 1. bone scan - IMPRESSION: 1. Increased vascular flow to the left foot and ankle suggestive of cellulitis. 2. Increased activity base of the residual fifth metatarsal raising the possibility of osteomyelitis. 3. Nonspecific increase in activity central tarsal metatarsal complex of the left foot possibly on the basis of postoperative activity versus additional foci of osteomyelitis at the second/third tarsal metatarsal complex. 2. MRI left foot - IMPRESSION: 1. 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 2. Findings are consistent with cellulitis in the forefoot, greatest medially. 3. Findings are highly concerning for osteomyelitis involving the remaining first metatarsal shaft. 3. LUE venous duplex negative for DVT. 4. Left knee x-rays - IMPRESSION: Nondisplaced oblique fracture distal femoral shaft. Pre-existing total knee arthroplasty. Left femoral joie. Consultations: 1. infectious disease - Blane López MD / KATHRYN Tse 2. orthopedics - Juan Abbasi MD / Aman Hawkins MD 3. wound care provider - Gianluca Johnson DO 4. wound care nurse Medication Reconciliation New Medications: Bumetanide (Bumex) 1 Mg Tab 1 TAB PO QAM for 30 Days, #30 TAB 5 Refills Hydrocodone/Acetaminophen 5MG/325MG ([place] 5MG/325MG) Tab 1 TABLET PO Q6H PRN for Pain, #15 TAB 0 Refills Acetaminophen (Mapap) 325 Mg Tab 650 MG PO Q4H PRN for Pain or Fever, #30 TAB 1 Refill Amoxicillin (Amoxicillin) 500 Mg Cap 500 MG PO Q12 for 42 Days, #84 CAP 0 Refills Heparin Sod (Porcine) (Heparin Sodium) 5,000 Unit/0.5 Ml Inj 5000 UNIT SQ Q12 for 30 Days, #60 0 Refills Hydralazine HCl (Hydralazine HCl) 10 Mg Tab 10 MG PO BID, #60 TAB 2 Refills Levofloxacin (Levofloxacin) 500 Mg Tab 500 MG PO Q2D@1100 for 42 Days, #21 TAB 0 Refills begin 12/16/16 Lidocaine (Lidocaine) 1 Patch Tdsy 1 PATCH TD QAM, #30 2 Refills apply to left shoulder for 12 hrs, remove for 12 hrs Saccharomyces Boulardii (Florastor) 250 Mg Cap 250 MG PO DAILY for 42 Days, #42 CAP 0 Refills Vancomycin HCl (Vancomycin HCl) 125 Mg/2.5 Ml Susp 125 MG PO DIRECTED for 38 Days, 0 Refills starting 12/15/16: 125mg po qid x 3 days, then 125mg BID x 7 days, then 125mg daily x 7 days, then 125mg every other day x 7 days, then 125mg every 3rd day x 14 days, then stop. Changed Medications: Amlodipine (Norvasc) 5 Mg Tab 5 MG PO BID, #60 TAB 5 Refills (Changed from: DAILY; Refills: ) Clonidine Hcl (Fkkjtsev-Cud-3) 0.2 Mg/24 Hr Dis 1 PATCH TOP qweekly, #4 PATCH 2 Refills (Changed from: Clonidine Hcl (Catapres- Tts) 0.1 Mg/24 Hr Dis 1 Patch TD WK) Insulin Aspart (Novolog Flexpen) 100 Units/Ml Inj 6 UNITS SQ AC, #1 PEN 2 Refills (Changed from: WM; Refills: ) Continued Medications: Allopurinol (Zyloprim) 300 Mg Tab 300 MG PO DAILY, TAB Aspirin (Aspirin Low Dose) 81 Mg Tab 1 TAB PO DAILY Atorvastatin (Atorvastatin Calcium) 10 Mg Tab 10 MG PO QPM TAKE WITH SUPPER Calcium Carbonate-Cholecalcife (Calcium 600 with Vitamin 600-400 mg-Unit) 1 Tab Tab 1 TAB PO DAILY Carvedilol (Coreg) 12.5 Mg Tab 12.5 MG PO BIDM, TAB Carvedilol (Coreg) 25 Mg Tab 25 MG PO BID, TAB Cholecalciferol (Vitamin D3) 1,000 Unit Tab 2000 UNIT PO BID for 90 Days, #36 TAB 3 Refills Clopidogrel (Plavix) 75 Mg Tab 75 MG PO DAILY, TAB Ferrous Gluconate (Ferrous Gluconate) 324 Mg Tab 324 MG PO BID, TAB Insulin Glargine (Lantus Solostar) 100 Unit/Ml Inj 16 UNITS SC QPM, PEN Levothyroxine Sodium (Levothyroxine Sodium) 50 Mcg Tab 1 TAB PO DAILY for 90 Days, #90 TAB 3 Refills Multivitamin (Multivitamin) Tab 1 TAB PO DAILY, TAB Discontinued Medications: Furosemide (Lasix) 40 Mg Tab 40 MG PO DAILY, TAB Referrals At Discharge Follow up Referrals: Infectious Disease - Within 1 Week with Melany Wilks PA-C Orthopedics Referral - Within a Month with Aman Hawkins M.D. Discharge Exam Physical Exam: General Appearance: no apparent distress ENT: pharynx normal Neck: no JVD Respiratory/Chest: lungs clear, no respiratory distress, no accessory muscle use Cardiovascular: regular rate, rhythm, no gallop, no murmur Abdomen / GI: normal bowel sounds, non tender, soft, no organomegaly Extremities: no pedal edema, + pertinent finding (left knee in immobilizer ) Neurologic/Psychiatric: alert, oriented x 3 Skin: + pertinent finding (left foot - toes 1, 2, and 3 are absent; on the medial aspect of the first metatarsal there is a small ulceration with scant drainage, no odor, and no erythema; this area is covered with aquacel silver and optifoam ) Hospital Course HISTORY OF PRESENT ILLNESS: The patient is an 81-year-old female who presented to the emergency department with left knee pain after a fall that occurred about 4 hours prior to arrival. Her daughter was present and helped to complete the history of present illness and ROS. The patient reportedly became startled when she was walking toward the door as her son was coming to visit. She tripped over an object on the floor and landed on her left side. The patient did not have any predisposing issues as far as lightheadedness, dizziness, palpitations, chest pain, or shortness of breath. She denied any loss of consciousness and she did not have any head trauma. She also reported some left shoulder and left hip pain that was worse with movement. HOSPITAL COURSE: 1. diabetic left foot infection with osteomyelitis of first metatarsal - the patient was seen by multiple providers including orthopedics, infectious disease , and the wound care team. Dr. Gianluca Johnson debrided the ulceration of the first metatarsal. Culture from the wound grew acinetobacter and enterococcus. ID recommended a minimum of 6 weeks of antibiotic therapy in the form of oral levaquin and amoxicillin. At discharge the ulceration was clean. She should continue on aquacel silver and optifoam to this region. She will need follow-up in the infectious disease and wound care clinics within 1 week of discharge. 2. c diff colitis - unfortunately she contracted c. diff while hospitalized. She received 10 days of oral vancomycin while here. Infectious disease recommended a prolonged vancomycin taper. Please see the discharge medication list for that taper. 3. left shoulder pain - x-rays showed intact shoulder replacement hardware; there was no clinical evidence of inflammatory arthritis on exam. A LUE venous duplex study was negative for DVT. She was treated with lidoderm patches prn. She was seen by Dr. Aman Hawkins who recommended conservative treatment for the shoulder. 4. left distal femur fracture - she was seen in consult by Dr. Aman Hawkins who recommended nonoperative management. She will discharge with knee immobilizer in place. Dr. Hawkins also recommended non-weightbearing status to the left leg for a minimum of 4 weeks. Follow-up with Dr. Hawkins in 4 weeks is advised. 5. HTN - this was labile and uncontrolled throughout much of her stay. Her clonidine patch was modestly increased, and hydralazine 10mg BID was added to her complex anti-hypertensive regimen. 6. significant weakness - suspected to be from severe deconditioning. CPK, TSH, and b12 were all normal. 7. CKD stage 5 - creatinine at discharge was 3. Baseline Cr tends to run about 2.6 - 3. 8. 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 H/H remained stable while hospitalized. Stool was heme negative. Discharge hemoglobin was 8.2 9. encephalopathy, metabolic - due to #1 above; resolved. 10. Hypothyroidism - she will continue on levothyroxine sodium 50mcg daily. TSH was normal during this stay. 11. T2DM, uncontrolled - her insulins were adjusted while hospitalized with improved glycemic control. 12. back pain - l-spine x-rays were negative for compression fracture. Total Time Spent: Greater than 30 minutes This includes examination of the patient, discharge planning, medication reconciliation, and communication with other providers. Discharge Instructions Please refer to the electronic Patient Visit Report (Discharge Instructions) for additional information. Follow-Up 1. medical and health services manager of SNF within [address] Aman Hawkins, orthopedics, in [address] [facility] in [address] [facility] Disease clinic in 1 week Additional Copies To Blane López MD; Doe Mercedes M.D.; Melany Wilks ., PACynC; Aman Hawkins M.D.; Jhoan Mendoza M.D.; Gianluca Johnson, DO; [facility]
== END 2016-12-15 16:20 | DRG 637 ==
LOC: C.EDB 02:13 → C.MED 05:32 → UNDOADMIN 05:32 → ENRESERV 06:08 → C.4E 11-29 20:30 → C.MED 11-29 20:30
PROVIDERS: ADMIT Hospitalist; ATTEND Internal Medicine
PROC: 0HDNXZZ Extraction of Left Foot Skin, External Approach (ICD-10-PCS; principal; 2016-11-29)
DX: E11.621 Type 2 diabetes mellitus with foot ulcer (principal); G93.40 Encephalopathy, unspecified; S72.402A Unspecified fracture of lower end of left femur, initial encounter for closed fracture; A04.7 Enterocolitis due to Clostridium difficile; M86.672 Other chronic osteomyelitis, left ankle and foot; N18.4 Chronic kidney disease, stage 4 (severe); N17.9 Acute kidney failure, unspecified; R32 Unspecified urinary incontinence; M85.80 Other specified disorders of bone density and structure, unspecified site; F41.9 Anxiety disorder, unspecified; E78.00 Pure hypercholesterolemia, unspecified; I12.9 Hypertensive chronic kidney disease with stage 1 through stage 4 chronic kidney disease, or unspecified chronic kidney disease; D63.1 Anemia in chronic kidney disease; G47.00 Insomnia, unspecified; Z90.49 Acquired absence of other specified parts of digestive tract; Z87.442 Personal history of urinary calculi; Z90.2 Acquired absence of lung [part of]; H91.90 Unspecified hearing loss, unspecified ear; D72.829 Elevated white blood cell count, unspecified; R53.81 Other malaise; M75.102 Unspecified rotator cuff tear or rupture of left shoulder, not specified as traumatic; K21.9 Gastro-esophageal reflux disease without esophagitis; M10.9 Gout, unspecified; E03.9 Hypothyroidism, unspecified; Z96.653 Presence of artificial knee joint, bilateral; L97.529 Non-pressure chronic ulcer of other part of left foot with unspecified severity; E87.6 Hypokalemia; Z89.412 Acquired absence of left great toe; Z96.612 Presence of left artificial shoulder joint; E11.69 Type 2 diabetes mellitus with other specified complication; E11.65 Type 2 diabetes mellitus with hyperglycemia; M25.512 Pain in left shoulder; Z88.8 Allergy status to other drugs, medicaments and biological substances; Z79.82 Long term (current) use of aspirin; Z79.4 Long term (current) use of insulin; Z79.899 Other long term (current) drug therapy; Z79.02 Long term (current) use of antithrombotics/antiplatelets; W01.0XXA Fall on same level from slipping, tripping and stumbling without subsequent striking against object, initial encounter; Y93.01 Activity, walking, marching and hiking; Y92.009 Unspecified place in unspecified non-institutional (private) residence as the place of occurrence of the external cause